=== PATIENT | male | born 1965 | race Caucasian/White ===

== ENCOUNTER 2024-04-04 19:44 | Emergency (ER) | payer OTHER ==
--- NOTE | 2024-04-04 21:31 | XR ---
EXAMINATION TYPE: XR wrist complete LT DATE OF EXAM: 04/04/2024 9:08 PM CLINICAL INDICATION:Male, 59 years old with history of pain; [facility] COMPARISON: None TECHNIQUE: XR wrist complete LT; examined in the Frontal, navicular, lateral, and oblique. FINDINGS: No acute osseous pathology, joint dislocation, or joint effusion. No evidence of any soft tissue swelling is seen. Multifocal degeneration changes throughout the joints of the wrist. Severe a therosclerosis of the procedure. Skin wound over the anterior aspect of the left breast compatible wi th history. IMPRESSION: 1. No acute osseous pathology. 2. Soft tissue injury to the volar wrist. No radiopaque foreign bodies.
[2024-04-04 22:39] LABS: ALT 11 U/L (4-49); AST 27 U/L (17-59); African American GFR (CKD) 71 (>60 ml/min/1.73 sqM); Albumin 3.7 g/dL (3.5-5.0); Anion Gap 9 mmol/L; Blood Urea Nitrogen 22 mg/dL (9-20); C Reactive Protein <0.5 mg/dL (<1.0); Calcium 8.8 mg/dL (8.4-10.2); Carbon Dioxide 19 mmol/L (22-30); Chloride 103 mmol/L (98-107); Glucose 76 mg/dL (74-99); Non-African American GFR(CKD) 61 (>60 ml/min/1.73 sqM); Potassium 5.3 mmol/L (3.5-5.1); Sodium 131 mmol/L (137-145); Total Bilirubin 0.6 mg/dL (0.2-1.3)
[2024-04-04 22:40] LABS: Alkaline Phosphatase 69 U/L (38-126)
[2024-04-04 22:42] LABS: Basophils # (A) 0.1 k/uL (0-0.2); Basophils % (A) 1 %; Eosinophils # (A) 0.6 k/uL (0-0.7); Eosinophils % (A) 5 %; HCT 37.8 % (39.0-53.0); HGB 12.1 gm/dL (13.0-17.5); Lymphocytes # (A) 3.2 k/uL (1.0-4.8); Lymphocytes % (A) 26 %; MCH 28.5 pg (25.0-35.0); MCHC 31.9 g/dL (31.0-37.0); MCV 89.4 fL (80.0-100.0); Mean Platelet Volume 7.6; Monocytes # (A) 0.7 k/uL (0-1.0); Monocytes % (A) 6 %; Neutrophils # (A) 7.2 k/uL (1.3-7.7); Neutrophils % (A) 60 %; Platelet Count 369 k/uL (150-450); RBC 4.23 m/uL (4.30-5.90); RDW 15.8 % (11.5-15.5); WBC 12.1 k/uL (3.8-10.6)
--- NOTE | 2024-04-04 22:50 | ED ---
General Adult HPI - General Chief complaint: Wound/Laceration Stated complaint: Left Hand Laceration Time Seen by Provider: 04/04/24 20:41 Source: patient, EMS, RN notes reviewed Mode of arrival: EMS Limitations: no limitations - History of Present Illness Initial comments: 59-year-old male presents to the emergency department for evaluation of left wri st wound. He states that he underwent surgery for his left wrist about 3 weeks ago in [place]. He notes that 2 days ago the area of the surgical site began to open up. He was urged by his family to come in. He denies any significant redness or drainage from the area. Denies fever, chills. - Related Data Previous Rx's Medication Instructions Recorded Cephalexin [Keflex] 500 mg PO Q6HR #40 cap 04/04/24 Allergies Allergy/AdvReac Type Severity Reaction Status Date / Time No Known Allergies Allergy Verified 04/04/24 20:25 Review of Systems ROS Statement: Those systems with pertinent positive or pertinent negative responses have been documented in the HPI. ROS Other: All systems not noted in ROS Statement are negative. 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 Absent: scleral icterus, conjunctival injection, periorbital swelling Respiratory exam: Present: normal lung sounds bilaterally. Absent: respiratory distress, wheezes, rales, rhonchi, stridor Cardiovascular Exam: Present: regular rate, normal rhythm, normal heart sounds. Absent: systolic murmur, diastolic murmur, rubs, gallop, clicks Extremities exam: Present: full ROM, normal capillary refill, other (Pain with flexion and extension of the fingers of the left hand, open wound measuring about 3 cm x 1 cm on the volar aspect of the left wrist with tendon sheath exposure). Absent: tenderness, pedal edema, joint swelling, calf tenderness Neurological exam: Present: alert, oriented X3 Psychiatric exam: Present: normal affect, normal mood Skin exam: Present: warm, dry, normal color. Absent: intact, rash Course Vital Signs 04/04/24 04/04/24 20:11 23:25 Temperature 97.8 F 97.9 F Pulse Rate 68 73 Respiratory 18 Rate Blood Pressure 126/76 146/95 O2 Sat by Pulse 99 100 Oximetry Medical Decision Making - Medical Decision Making Was pt. sent in by a medical professional or institution (, FA[facility]INO, ELECTRICAL APPLIANCE PREPARER, urgent care, hospital, or senior living...) When possible be specific @ -No Did you speak to anyone other than the patient for history (EMS, parent, family, police, friend...)? What history was obtained from this source @ -No Did you review nursing and triage notes (agree or disagree)? Why? @ -I reviewed and agree with nursing and triage notes Were old charts reviewed (outside hosp., previous admission, EMS record, old EKG, old radiological studies, urgent care reports/EKG's, senior living records)? Report findings @ -No old charts were reviewed Differential Diagnosis (chest pain, altered mental status, abdominal pain women, abdominal pain men, vaginal bleeding, weakness, fever, dyspnea, syncope, headache, dizziness, GI bleed, back pain, seizure, CVA, palpatations, mental health, musculoskeletal)? @ -Differential Musculoskeletal Muscular strain, contusion, ligament sprain, fracture, arthritis, septic arthritis, bursitis, cellulitis, muscle spasm, nerve compression, DVT, arterial occlusion, herpes zoster, electrolyte abnormality, tumor.... This is not meant to be in all inclusive list EKG interpreted by me (3pts min.). @ -None X-rays interpreted by me (1pt min.). @ -None done CT interpreted by me (1pt min.). @ -None done U/S interpreted by me (1pt. min.). @ -None done What testing was considered but not performed or refused? (CT, X-rays, U/S, labs)? Why? @ -None What meds were considered but not given or refused? Why? @ -None Did you discuss the management of the patient with other professionals (professionals i.e. , FAUSTINO, ELECTRICAL APPLIANCE PREPARER, lab, RT, psych nurse, social work job titles, criminal defense lawyer, teacher, learning and development officer, manager rn case)? Give summary @ -Discussed with Dr. Mcdowell orthopedics, discussed based on appearance can be followed outpatient vs transferred for hand specialist if acute treatment is necessary Was smoking cessation discussed for >3mins.? @ -No Was critical care preformed (if so, how long)? @ -No Were there social determinants of health that impacted care today? How? (Homelessness, low income, unemployed, alcoholism, drug addiction, transportation, low edu. Level, literacy, decrease access to med. care, intermediate, rehab)? @ -No Was there de-escalation of care discussed even if they declined (Discuss DNR or withdrawal of care, Hospice)? DNR status @ -No What co-morbidities impacted this encounter? (DM, HTN, Smoking, COPD, CAD, Cancer, CVA, ARF, Chemo, Hep., AIDS, mental health diagnosis, sleep apnea, morbid obesity)? @ -None Was patient admitted / discharged? Hospital course, mention meds given and route, prescriptions, significant lab abnormalities, going to OR and other pertinent info. @ -Discharged. Patient presented to the emergency department for evaluation of left wrist wound. Patient appears to have wound dehiscence at area of recent surgery. There is no redness or drainage from the area. Case was discussed with orthopedics. Recommend treatment based on assessment. Labs obtained shows mild leukocytosis 12.1, CRP less than 0.5. Patient was also assessed by my attending, Dr. Dash. A wet-to-dry dressing was placed. Patient will be started on antibiotics p.o. and advised to follow-up with orthopedics hand specialist on Saturday. He is understanding and agreeable with this plan. Patient stable at time of discharge. Undiagnosed new problem with uncertain prognosis? @ -No Drug Therapy requiring intensive monitoring for toxicity (Heparin, Nitro, Insulin, Cardizem)? @ -No Were any procedures done? @ -No Diagnosis/symptom? @ -Wound dehiscence Acute, or Chronic, or Acute on Chronic? @ -acute Uncomplicated (without systemic symptoms) or Complicated (systemic symptoms)? @ -uncomplicated Side effects of treatment? @ -No Exacerbation, Progression, or Severe Exacerbation? @ -No Poses a threat to life or bodily function? How? (Chest pain, [place], [place], pneumonia, PE, COPD, DKA, ARF, appy, cholecystitis, CVA, Diverticulitis, Homicidal, Suicidal, threat to staff... and all critical care pts) @ -No - Lab Data Result diagrams: 04/04/24 22:00 04/04/24 22:00 Lab Results 04/04/24 04/04/24 04/04/24 Range/Units 22:00 22:00 22:00 WBC 12.1 H (3.8-10.6) k/uL RBC 4.23 L (4.30-5.90) m/uL Hgb 12.1 L (13.0-17.5) gm/dL Hct 37.8 L (39.0-53.0) % MCV 89.4 (80.0-100.0) fL MCH 28.5 (25.0-35.0) pg MCHC 31.9 (31.0-37.0) g/dL RDW 15.8 H (11.5-15.5) % Plt Count 369 (150-450) k/uL MPV 7.6 Neutrophils % 60 % Lymphocytes % 26 % Monocytes % 6 % Eosinophils % 5 % Basophils % 1 % Neutrophils # 7.2 (1.3-7.7) k/uL Lymphocytes # 3.2 (1.0-4.8) k/uL Monocytes # 0.7 (0-1.0) k/uL Eosinophils # 0.6 (0-0.7) k/uL Basophils # 0.1 (0-0.2) k/uL ESR 74 H (0-20) mm/Hr PT 11.1 (10.0-12.5) sec INR 1.0 (<1.2) APTT 23.3 (22.0-30.0) sec Sodium 131 L (137-145) mmol/L Potassium 5.3 H (3.5-5.1) mmol/L Chloride 103 (98-107) mmol/L Carbon Dioxide 19 L (22-30) mmol/L Anion Gap 9 mmol/L BUN 22 H (9-20) mg/dL Creatinine 1.26 H (0.66-1.25) mg/dL Est GFR (CKD-EPI)AfAm 71 (>60 ml/min/1.73 sqM) Est GFR (CKD-EPI)NonAf 61 (>60 ml/min/1.73 sqM) Glucose 76 (74-99) mg/dL Calcium 8.8 (8.4-10.2) mg/dL Total Bilirubin 0.6 (0.2-1.3) mg/dL AST 27 (17-59) U/L ALT 11 (4-49) U/L Alkaline Phosphatase 69 (38-126) U/L C-Reactive Protein <0.5 (<1.0) mg/dL Total Protein 7.0 (6.3-8.2) g/dL Albumin 3.7 (3.5-5.0) g/dL Disposition Clinical Impression: Wound, open, wrist Disposition: HOME SELF-CARE Condition: Stable Additional Instructions: Please follow up with the hand specialist on Saturday. 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 Return to the emergency department for new or worsening symptoms. Prescriptions: Cephalexin [Keflex] 500 mg PO Q6HR #40 cap Is patient prescribed a controlled substance at d/c from ED?: No Referrals: None,Stated [Primary Care Provider] - 1-2 days Renate Colmenares DO [Doctor of Osteopathic Medicine] - 1-2 days Laci Urrutia DO [Doctor of Osteopathic Medicine] - 1-2 days
[2024-04-04 23:13] LABS: Partial Thromboplastin Time 23.3 sec (22.0-30.0); Prothrombin Time 11.1 sec (10.0-12.5)
[2024-04-05 04:06] VITALS: BP 146/95; PULSE 73; RESP 18; TEMP 97.9
[2024-04-05 11:16] LABS: Erythrocyte Sedimentation Rate 74 mm/Hr (0-20)
== END 2024-04-04 23:35 | disposition home or self-care (01) ==
LOC: EC 19:44
DX: S61.412A Laceration without foreign body of left hand, initial encounter (principal); F17.200 Nicotine dependence, unspecified, uncomplicated; X58.XXXA Exposure to other specified factors, initial encounter
CPT/HCPCS: 36415; 80053; 85025; 85610; 85652; 85730; 86140; 99284

== ENCOUNTER 2024-09-29 11:36 | Inpatient (IN) | payer OTHER ==
[2024-09-29] MEDS: methylPREDNISolone SOD SUCCI 125 MG/2 ML VIAL IV STA (12:23)
[2024-09-29] MEDS: cefTRIAXone IN SWFI 1,000 MG/10 ML SYRINGE IVP STA (12:23)
--- NOTE | 2024-09-29 12:24 | ED ---
General Adult HPI - General Chief complaint: Shortness of Breath Stated complaint: SOB Time Seen by Provider: 09/29/24 12:10 Source: patient, RN notes reviewed, old records reviewed Mode of arrival: wheelchair Limitations: no limitations - History of Present Illness Initial comments: This is a 59-year-old male who presents to the emergency department complaining of difficulty breathing for 6 days. Patient states today he also had some left upper chest pain. Patient states she has had a slight cough but nothing worse than normal. Patient states he is a smoker does have diabetes high cholesterol and high blood pressure. Patient denies any heart disease in the past. Patient states he has noticed a little more swelling to the feet. Patient denies any back pain. Patient denies any radiation of the pain in the chest. Patient denies any abdominal pain patient has nausea vomiting diarrhea. - Related Data Home Medications Medication Instructions Recorded Confirmed No Known Home Medications 09/29/24 09/29/24 Allergies Allergy/AdvReac Type Severity Reaction Status Date / Time No Known Allergies Allergy Verified 09/29/24 12:56 Review of Systems ROS Statement: Those systems with pertinent positive or pertinent negative responses have been documented in the HPI. ROS Other: All systems not noted in ROS Statement are negative. 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 Patient is nontoxic and well- hydrated and is in mild distress. ENT: Neck is soft and supple. No significant lymphadenopathy is noted. Oropharynx is clear. Moist mucous membranes. Neck has full range of motion without eliciting any pain. EYES: The sclera were anicteric and conjunctiva were pink and moist. Extraocular movements were intact and pupils were equal round and reactive to light. E yelids were unremarkable. PULMONARY: Significant decreased breath sounds with expiratory wheezing CARDIOVASCULAR: There is a regular rate and rhythm without any murmurs gallops or rubs. ABDOMEN: Soft and nontender with normal bowel sounds. SKIN: Skin is clear with no lesions or rashes and otherwise unremarkable. NEUROLOGIC: Patient is alert and oriented x3. Cranial nerves II through XII are grossly intact. Motor and sensory are also intact. Normal speech, volume and content. Symmetrical smile. MUSCULOSKELETAL: Normal extremities with adequate strength and full range of motion. 1+ edema bilaterally LYMPHATICS: No significant lymphadenopathy is noted PSYCHIATRIC: Normal psychiatric evaluation. Limitations: no limitations Course Vital Signs 09/29/24 09/29/24 09/29/24 12:06 12:15 12:37 Temperature 97.3 F L Pulse Rate 62 97 Respiratory 26 H 26 H Rate Blood Pressure 176/106 O2 Sat by Pulse 88 L Oximetry 09/29/24 09/29/24 09/29/24 12:50 14:04 14:26 Temperature Pulse Rate 96 98 96 Respiratory 26 H 26 H Rate Blood Pressure 170/101 154/86 O2 Sat by Pulse 94 L 93 L Oximetry Medical Decision Making - Medical Decision Making EKG is interpreted by myself but EKG shows sinus tachycardia with occasional PVC at 100 bpm W[place] 125 QRS is 102 QT interval 353 QTc is 410. Patient's EKG shows no ST segment elevation or depression. Was pt. sent in by a medical professional or institution (, PA, HELP DESK MANAGER, urgent care, hospital, or skilled nursing...) When possible be specific @ -No Did you speak to anyone other than the patient for history (EMS, parent, family, police, friend...)? What history was obtained from this source @ -No Did you review nursing and triage notes (agree or disagree)? Why? @ -I reviewed and agree with nursing and triage notes Were old charts reviewed (outside hosp., previous admission, EMS record, old EKG, old radiological studies, urgent care reports/EKG's, skilled nursing records)? Report findings @ -No old charts were reviewed Differential Diagnosis? @ -Differential Dyspnea: Coronary syndrome, arrhythmia, tamponade, asthma, COPD, pulmonary embolism, pneumonia, pneumothorax, pulmonary effusion, anaphylaxis, diabetic ketoacidosis, flailed chest, pulmonary contusion, diaphragmatic rupture, anemia, neuromuscular, this is not meant to be an all-inclusive list. EKG interpreted by me (3pts min.). @ -As above X-rays interpreted by me (1pt min.). @ -Chest x-ray shows acute pulmonary edema CT interpreted by me (1pt min.). @ -None done U/S interpreted by me (1pt. min.). @ -None done What testing was considered but not performed or refused? (CT, X-rays, U/S, labs)? Why? @ -None What meds were considered but not given or refused? Why? @ -None Did you discuss the management of the patient with other professionals (professionals i.e. , PA, HELP DESK MANAGER, lab, RT, psych nurse, director social, tree warden, teacher, staff electronic warfare officer, rn field case manager)? Give summary @ -I spoke with Dr. Dickens he agreed to admit the patient I admitted the patient wrote admitting orders Was smoking cessation discussed for >3mins.? @ -No Was critical care preformed (if so, how long)? @ -35 minutes Were there social determinants of health that impacted care today? How? (Homelessness, low income, unemployed, alcoholism, drug addiction, transportation, low edu. Level, literacy, decrease access to med. care, care home, rehab)? @ -No Was there de-escalation of care discussed even if they declined (Discuss DNR or withdrawal of care, Hospice)? DNR status @ -No What co-morbidities impacted this encounter? (DM, HTN, Smoking, COPD, CAD, Cancer, CVA, ARF, Chemo, Hep., AIDS, mental health diagnosis, sleep apnea, morbid obesity)? @ -None Was patient admitted / discharged? Hospital course, mention meds given and route, prescriptions, significant lab abnormalities, going to OR and other pertinent info. @ -Patient was given Lasix on arrival and also 2 breathing treatments because of his COPD history and the wheezing heard. Patient was then given nitroglycerin sublingual and Nitropaste to help bring down his pressure and decrease preload for his acute pulmonary edema. Patient was feeling considerably better. Patient will be admitted to Dr. Willis. Patient also received antibiotics for the COPD history. Undiagnosed new problem with uncertain prognosis? @ -No Drug Therapy requiring intensive monitoring for toxicity (Heparin, Nitro, Insulin, Cardizem)? @ -No Were any procedures done? @ -No Diagnosis/symptom? @ -Acute pulmonary edema Acute, or Chronic, or Acute on Chronic? @ -Acute Uncomplicated (without systemic symptoms) or Complicated (systemic symptoms)? @ -Complicated Side effects of treatment? @ -No Exacerbation, Progression, or Severe Exacerbation? @ -No Poses a threat to life or bodily function? How? (Chest pain, [place], [place], pneumonia, PE, COPD, DKA, ARF, appy, cholecystitis, CVA, Diverticulitis, Homicidal, Suicidal, threat to staff... and all critical care pts) @ -Yes this can lead to hypoxia and endorgan dysfunction Diagnosis/symptom? @ -Hypertensive urgency Acute, or Chronic, or Acute on Chronic? @ -Acute Uncomplicated (without systemic symptoms) or Complicated (systemic symptoms)? @ -Complicated Side effects of treatment? @ -None Exacerbation, Progression, or Severe Exacerbation] @ -No Poses a threat to life or bodily function? @ -Yes this can lead to poor perfusion and endorgan dysfunction - Lab Data Result diagrams: 09/29/24 13:05 09/29/24 14:29 Lab Results 09/29/24 09/29/24 09/29/24 Range/Units 13:05 13:05 13:05 WBC 11.0 H (3.8-10.6) k/uL RBC 4.53 (4.30-5.90) m/uL Hgb 13.7 (13.0-17.5) gm/dL Hct 41.7 (39.0-53.0) % MCV 92.0 (80.0-100.0) fL MCH 30.1 (25.0-35.0) pg MCHC 32.8 (31.0-37.0) g/dL RDW 14.5 (11.5-15.5) % Plt Count 393 (150-450) k/uL MPV 7.6 Neutrophils % 87 % Lymphocytes % 7 % Monocytes % 4 % Eosinophils % 1 % Basophils % 1 % Neutrophils # 9.5 H (1.3-7.7) k/uL Lymphocytes # 0.8 L (1.0-4.8) k/uL Monocytes # 0.4 (0-1.0) k/uL Eosinophils # 0.2 (0-0.7) k/uL Basophils # 0.1 (0-0.2) k/uL Hypochromasia Slight PT 12.0 (10.0-12.5) sec INR 1.1 (<1.2) APTT 24.1 (22.0-30.0) sec Sodium Cancelled Potassium Cancelled Chloride Cancelled Carbon Dioxide Cancelled Anion Gap Cancelled BUN Cancelled Creatinine Cancelled Est GFR (CKD-EPI) Cancelled Est GFR (CKD-EPI)AfAm Cancelled Est GFR (CKD-EPI)NonAf Cancelled Glucose Cancelled Plasma Lactic Acid Lee (0.7-2.0) mmol/L Calcium Cancelled Magnesium Cancelled Total Bilirubin Cancelled AST Cancelled ALT Cancelled Alkaline Phosphatase Cancelled Troponin I (0.000-0.034) ng/mL NT-Pro-B Natriuret Pep 93469 pg/mL Total Protein Cancelled Albumin Cancelled 09/29/24 09/29/24 09/29/24 Range/Units 13:05 14:29 14:29 WBC (3.8-10.6) k/uL RBC (4.30-5.90) m/uL Hgb (13.0-17.5) gm/dL Hct (39.0-53.0) % MCV (80.0-100.0) fL MCH (25.0-35.0) pg MCHC (31.0-37.0) g/dL RDW (11.5-15.5) % Plt Count (150-450) k/uL MPV Neutrophils % % Lymphocytes % % Monocytes % % Eosinophils % % Basophils % % Neutrophils # (1.3-7.7) k/uL Lymphocytes # (1.0-4.8) k/uL Monocytes # (0-1.0) k/uL Eosinophils # (0-0.7) k/uL Basophils # (0-0.2) k/uL Hypochromasia PT (10.0-12.5) sec INR (<1.2) APTT (22.0-30.0) sec Sodium 133 L Potassium 5.5 H Chloride 100 Carbon Dioxide 23 Anion Gap 10 BUN 38 H Creatinine 1.84 H Est GFR (CKD-EPI) Est GFR (CKD-EPI)AfAm 45 Est GFR (CKD-EPI)NonAf 39 Glucose 135 H Plasma Lactic Acid Lee 1.7 (0.7-2.0) mmol/L Calcium 8.5 Magnesium 2.0 Total Bilirubin 0.4 AST 26 ALT 17 Alkaline Phosphatase 146 H Troponin I 0.040 H* (0.000-0.034) ng/mL NT-Pro-B Natriuret Pep pg/mL Total Protein 7.6 Albumin 3.8 Disposition Clinical Impression: Acute pulmonary edema, Hypertensive urgency Disposition: ADMITTED IP TO THIS HOSP Referrals: None,Stated [Primary Care Provider] - 1-2 days Time of Disposition: 15:27
[2024-09-29] MEDS: IPRATROPIUM 0.5 MG/2.5 ML NEBU INHALATION STA (12:33)
[2024-09-29] MEDS: ALBUTEROL NEBULIZED 2.5 MG/3 ML INHALATION STA (12:33)
[2024-09-29] MEDS: FUROSEMIDE 10 MG/ML 2 ML VIAL IV ONE (13:14)
[2024-09-29 13:22] LABS: Basophils # (A) 0.1 k/uL (0-0.2); Basophils % (A) 1 %; Eosinophils # (A) 0.2 k/uL (0-0.7); Eosinophils % (A) 1 %; HCT 41.7 % (39.0-53.0); HGB 13.7 gm/dL (13.0-17.5); Hypochromasia Slight; Lymphocytes # (A) 0.8 k/uL (1.0-4.8); Lymphocytes % (A) 7 %; MCH 30.1 pg (25.0-35.0); MCHC 32.8 g/dL (31.0-37.0); Mean Platelet Volume 7.6; Monocytes # (A) 0.4 k/uL (0-1.0); Monocytes % (A) 4 %; Neutrophils # (A) 9.5 k/uL (1.3-7.7); Neutrophils % (A) 87 %; Platelet Count 393 k/uL (150-450); RBC 4.53 m/uL (4.30-5.90); RDW 14.5 % (11.5-15.5)
[2024-09-29 13:31] LABS: INR 1.1 (<1.2); Partial Thromboplastin Time 24.1 sec (22.0-30.0)
--- NOTE | 2024-09-29 13:44 | XR ---
EXAMINATION TYPE: XR chest 2V DATE OF EXAM: 09/29/2024 1:39 PM COMPARISON: Chest radiographs from TECHNIQUE: XR chest 2V Frontal and lateral views of the chest. CLINICAL INDICATION:Male, 59 years old with history of difficulty breathing; FINDINGS: Lungs/Pleura: No evidence of pneumothorax. Patchy bibasilar airspace opacities. Blunting of the costo phrenic angles is present. Pulmonary vascularity: Pulmonary vascular congestion. Heart/mediastinum: Cardiomediastinal silhouette is enlarged. Musculoskeletal: No acute osseous pathology. IMPRESSION: Cardiomegaly, pulmonary vascular congestion and bilateral small pleural effusions. Correlate with BNP for congestive heart failure. Additionally there are bibasilar patchy airspace opacities may represe nt atelectasis with superimposed infectious process not excluded. [facility], , 09/29/2024 1:42 PM
[2024-09-29] MEDS: NITROGLYCERIN SL TABS 0.4 MG TAB SUBLINGUAL STA (14:04)
[2024-09-29 14:51] LABS: ALT 17 U/L (4-49); AST 26 U/L (17-59); African American GFR (CKD) 45 (>60 ml/min/1.73 sqM); Albumin 3.8 g/dL (3.5-5.0); Alkaline Phosphatase 146 U/L (38-126); Anion Gap 10 mmol/L; Blood Urea Nitrogen 38 mg/dL (9-20); Calcium 8.5 mg/dL (8.4-10.2); Carbon Dioxide 23 mmol/L (22-30); Chloride 100 mmol/L (98-107); Glucose 135 mg/dL (74-99); Non-African American GFR(CKD) 39 (>60 ml/min/1.73 sqM); Potassium 5.5 mmol/L (3.5-5.1); Sodium 133 mmol/L (137-145); Total Bilirubin 0.4 mg/dL (0.2-1.3); Total Protein 7.6 g/dL (6.3-8.2)
[2024-09-29] MEDS: FUROSEMIDE 40 MG TAB PO SCH (15:37)
[2024-09-29] MEDS: ASPIRIN 325 MG TAB PO STA (15:37)
[2024-09-29 17:00] LABS: Glucose,Whole Blood 148 mg/dL (70-110)
[2024-09-29] MEDS: NITROGLYCERIN OINT 1 INCH/GM PACKET TOPICAL SCH (19:14)
--- NOTE | 2024-09-29 20:57 | P.HPIM ---
History of Present Illness This is a pleasant 59 years old male with no significant past medical history. Who does not follow-up with PCP. Presents because of feeling short of breath for the last 6 days. Patient also reports having some chest pain when he came into the hospital, as per patient is gone now and rated as 0/10. He has been having some cough and green phlegm for the last 5 days He smokes 1 pack/day and he were counseled to quit and he agrees and he wants nicotine patch but no alcohol or illicit drugs He has mild headache. He has some wobbly walking because of his knee replacement. But no new weakness No specific GI/ symptom On admission he stated Clinic with a heart rate of breathing is 20-22. He was saturating 94% on 4 L oxygen via nasal cannula. Labs reviewed. He WBC is mildly up at 11,000. Rest of CBC is unremarkable Creatinine 1.8. Liver enzymes are unremarkable. INR 1.1 Troponin is elevated at 0.04 proBNP is elevated 11 300 Chest x-ray showing cardiomegaly with pulmonary vascular congestion and bilateral pleural effusion. With some atelectasis, pneumonia felt less likely Pro- Calcitonin is pending EKG showing sinus tachycardia at 100% with no significant ST-T changes Patient received aspirin in the emergency room at 325 mg and started on Lasix. Review of Systems Review of systems CONSTITUTIONAL: No fever, no malaise, no fatigue. HEENT: No recent visual problems or hearing problems. Denied any sore throat. CARDIOVASCULAR: No orthopnea, PND, no palpitations, no syncope. PULMONARY: No chest wall tenderness, no hemoptysis. GASTROINTESTINAL: No diarrhea, no nausea, no vomiting, no abdominal pain. Normoactive bowel sounds. NEUROLOGICAL: No headaches, no weakness, no numbness. HEMATOLOGICAL: Denies any bleeding or petechiae. GENITOURINARY: Denies any burning micturition, frequency, or urgency. MUSCULOSKELETAL/RHEUMATOLOGICAL: Denies any joint pain, swelling, or any muscle pain. ENDOCRINE: Denies any polyuria or polydipsia. 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 side of neck about 40 years ago Smoking Status: Current every day smoker Past Alcohol Use History: Occasional Past Drug Use History: None Reported Medications and Allergies Home Medications Medication Instructions Recorded Confirmed Type No Known Home Medications 09/29/24 09/29/24 History Allergies Allergy/AdvReac Type Severity Reaction Status Date / Time No Known Allergies Allergy Verified 09/29/24 12:56 Physical Exam Vitals: Vital Signs Temp Pulse Resp BP Pulse Ox 09/29/24 19:10 97.9 F 81 20 144/95 94 L 09/29/24 15:58 100 22 176/100 91 L 09/29/24 14:26 96 26 H 154/86 93 L 09/29/24 14:04 98 26 H 170/101 94 L 09/29/24 12:50 96 09/29/24 12:37 97 09/29/24 12:15 26 H 09/29/24 12:06 97.3 F L 62 26 H 176/106 88 L Intake and Output 09/29/24 09/29/24 09/29/24 06:59 14:59 22:59 Other: Weight 70.307 kg GENERAL: The patient is alert and oriented x3, not in any acute distress. Well developed, well nourished. HEENT: Pupils are round and equally reacting to light. EOMI. No scleral icterus. No conjunctival pallor. Normocephalic, atraumatic. No pharyngeal erythema. No thyromegaly. CARDIOVASCULAR: S1 and S2 present. No murmurs, rubs, or gallops. -PULMONARY: Chest is clear to auscultation, no wheezing , no crackles. Decreased air entry in both sides ABDOMEN: Soft, nontender, nondistended, normoactive bowel sounds. No palpable organomegaly. MUSCULOSKELETAL: No joint swelling or deformity. -EXTREMITIES: No cyanosis, clubbing, 1+ bilateral pitting leg edema, left more than right. NEUROLOGICAL: Gross neurological examination did not reveal any focal deficits. SKIN: No rashes. no petechiae. Results CBC & Chem 7: 09/29/24 13:05 09/29/24 14:29 Labs: Abnormal Lab Results - Last 24 Hours (Table) 09/29/24 09/29/24 09/29/24 Range/Units 13:05 14:29 14:29 WBC 11.0 H (3.8-10.6) k/uL Neutrophils # 9.5 H (1.3-7.7) k/uL Lymphocytes # 0.8 L (1.0-4.8) k/uL Sodium 133 L (137-145) mmol/L Potassium 5.5 H (3.5-5.1) mmol/L BUN 38 H (9-20) mg/dL Creatinine 1.84 H (0.66-1.25) mg/dL Glucose 135 H (74-99) mg/dL POC Glucose (mg/dL) (70-110) mg/dL Alkaline Phosphatase 146 H (38-126) U/L Troponin I 0.040 H* (0.000-0.034) ng/mL 09/29/24 Range/Units 16:58 WBC (3.8-10.6) k/uL Neutrophils # (1.3-7.7) k/uL Lymphocytes # (1.0-4.8) k/uL Sodium (137-145) mmol/L Potassium (3.5-5.1) mmol/L BUN (9-20) mg/dL Creatinine (0.66-1.25) mg/dL Glucose (74-99) mg/dL POC Glucose (mg/dL) 148 H (70-110) mg/dL Alkaline Phosphatase (38-126) U/L Troponin I (0.000-0.034) ng/mL Assessment and Plan Assessment: Acute hypoxic respiratory failure Acute congestive heart failure, new onset. Unknown ejection fraction Acute kidney injury could be cardiorenal syndrome. Rule out obstructive uropathy and other etiologies. Nicotine dependence. Patient counseled and he agrees to the nicotine patch Plan: Continue with Lasix. Monitor creatinine and input and output and electrolytes Start small dose of metoprolol Continue with aspirin Will do serial troponin Cardiology team consult Check urine analysis. Consider nephrology consult especially if no improvement Labs and medication were reviewed.. Continue same treatment. Continue with symptomatic treatment. Resume home medication. Monitor labs and vitals. DVT and GI prophylaxis. Further recommendations as per clinical course of the patient DVT prophylaxis: Subcutaneous Lovenox GI Prophylaxis: Pepcid PT/OT: Pending Prognosis is guarded
[2024-09-29] MEDS: METOPROLOL TARTRATE 12.5 MG TAB PO SCH (21:42)
[2024-09-29] MEDS: NICOTINE 21MG/24HR PATCH TRANSDERM SCH (21:42)
[2024-09-29] MEDS: IPRATROPIUM-ALBUTEROL 3 ML NEB INHALATION STA (22:10)
[2024-09-30] MEDS: MELATONIN 3 MG TABLET PO SCH (00:59)
[2024-09-30] MEDS: ACETAMINOPHEN TAB 325 MG TAB PO PRN (00:59)
[2024-09-30 03:55] LABS: Amorphous Sediment,Urine Rare /hpf; Appearance,Urine Clear (Clear); Bilirubin,Urine Negative (Negative); Blood,Urine Small (Negative); Color,Urine Colorless; Glucose,Urine (UA) Trace (Negative); Hyaline Casts,Urine 14 /lpf (0-2); Ketones,Urine Negative (Negative); Leukocyte Esterase,Urine Negative (Negative); Mucus,Urine Few /hpf; Nitrite,Urine Negative (Negative); PH, Urine 5.5 (5.0-8.0); Protein,Urine 3+ (Negative); RBC,Urine 13 /hpf (0-5); Specific Gravity,Urine 1.014 (1.001-1.035); Squamous Epithelial Cell,Urine <1 /hpf (0-4); Urobilinogen,Urine <2.0 mg/dL (<2.0); WBC,Urine 1 /hpf (0-5)
--- NOTE | 2024-09-30 07:15 | P.PN ---
Subjective This is a pleasant 59 years old male with no significant past medical history. Who does not follow-up with PCP. Presents because of feeling short of breath for the last 6 days. Patient also reports having some chest pain when he came into the hospital, as per patient is gone now and rated as 0/10. He has been having some cough and green phlegm for the last 5 days He smokes 1 pack/day and he were counseled to quit and he agrees and he wants nicotine patch but no alcohol or illicit drugs He has mild headache. He has some wobbly walking because of his knee replacement. But no new weakness No specific GI/ symptom On admission he stated Clinic with a heart rate of breathing is 20-22. He was saturating 94% on 4 L oxygen via nasal cannula. Labs reviewed. He WBC is mildly up at 11,000. Rest of CBC is unremarkable Creatinine 1.8. Liver enzymes are unremarkable. INR 1.1 Troponin is elevated at 0.04 proBNP is elevated 11 300 Chest x-ray showing cardiomegaly with pulmonary vascular congestion and bilateral pleural effusion. With some atelectasis, pneumonia felt less likely Pro- Calcitonin is pending EKG showing sinus tachycardia at 100% with no significant ST-T changes Patient received aspirin in the emergency room at 325 mg and started on Lasix. 09/30 Patient is still tachypneic and dyspneic. Also patient reports improvement in his breathing He denies chest pain. No significant coughing. Still with bilateral pitting leg edema more on the left side. He has evidence of urinary retention with bladder scan 421. Dawson catheter was inserted. We will add Flomax. He made good urine output overnight. Repeat potassium was 5.9. Creatinine 1.8. Monitor labs later on today. Echocardiogram is pending Objective - Vital Signs Vital signs: Vital Signs Temp 97.9 F 09/29/24 19:10 Pulse 87 09/30/24 06:22 Resp 18 09/30/24 06:22 BP 131/85 09/30/24 06:22 Pulse Ox 95 09/30/24 06:22 FiO2 Intake & Output 09/29/24 09/30/24 09/30/24 18:59 06:59 18:59 Output Total 450 Balance -450 Weight 70.307 kg Output: Urine 450 Uretheral (Dawson) 450 - Exam GENERAL: The patient is alert and oriented x3, not in any acute distress. Well developed, well nourished. HEENT: Pupils are round and equally reacting to light. EOMI. No scleral icterus. No conjunctival pallor. Normocephalic, atraumatic. No pharyngeal erythema. No thyromegaly. CARDIOVASCULAR: S1 and S2 present. No murmurs, rubs, or gallops. -PULMONARY: Chest is clear to auscultation, no wheezing , bilateral basal crackles. With no prolongation of expiration ABDOMEN: Soft, nontender, nondistended, normoactive bowel sounds. No palpable organomegaly. MUSCULOSKELETAL: No joint swelling or deformity. -EXTREMITIES: No cyanosis, clubbing, . pt has bilateral pitting leg edema. More on the left side NEUROLOGICAL: Gross neurological examination did not reveal any focal deficits. SKIN: No rashes. no petechiae. - Labs CBC & Chem 7: 09/29/24 13:05 09/29/24 21:14 Labs: Abnormal Lab Results - Last 24 Hours (Table) 09/29/24 09/29/24 09/29/24 Range/Units 13:05 14:29 14:29 WBC 11.0 H (3.8-10.6) k/uL Neutrophils # 9.5 H (1.3-7.7) k/uL Lymphocytes # 0.8 L (1.0-4.8) k/uL Sodium 133 L (137-145) mmol/L Potassium 5.5 H (3.5-5.1) mmol/L BUN 38 H (9-20) mg/dL Creatinine 1.84 H (0.66-1.25) mg/dL Glucose 135 H (74-99) mg/dL POC Glucose (mg/dL) (70-110) mg/dL Alkaline Phosphatase 146 H (38-126) U/L Troponin I 0.040 H* (0.000-0.034) ng/mL Urine Protein (Negative) Urine Glucose (UA) (Negative) Urine Blood (Negative) Urine RBC (0-5) /hpf Amorphous Sediment (None) /hpf Hyaline Casts (0-2) /lpf Urine Mucus (None) /hpf 09/29/24 09/29/24 09/29/24 Range/Units 16:58 21:14 21:14 WBC (3.8-10.6) k/uL Neutrophils # (1.3-7.7) k/uL Lymphocytes # (1.0-4.8) k/uL Sodium (137-145) mmol/L Potassium 5.9 H (3.5-5.1) mmol/L BUN (9-20) mg/dL Creatinine (0.66-1.25) mg/dL Glucose (74-99) mg/dL POC Glucose (mg/dL) 148 H (70-110) mg/dL Alkaline Phosphatase (38-126) U/L Troponin I 0.052 H* (0.000-0.034) ng/mL Urine Protein (Negative) Urine Glucose (UA) (Negative) Urine Blood (Negative) Urine RBC (0-5) /hpf Amorphous Sediment (None) /hpf Hyaline Casts (0-2) /lpf Urine Mucus (None) /hpf 09/30/24 Range/Units 03:00 WBC (3.8-10.6) k/uL Neutrophils # (1.3-7.7) k/uL Lymphocytes # (1.0-4.8) k/uL Sodium (137-145) mmol/L Potassium (3.5-5.1) mmol/L BUN (9-20) mg/dL Creatinine (0.66-1.25) mg/dL Glucose (74-99) mg/dL POC Glucose (mg/dL) (70-110) mg/dL Alkaline Phosphatase (38-126) U/L Troponin I (0.000-0.034) ng/mL Urine Protein 3+ H (Negative) Urine Glucose (UA) Trace H (Negative) Urine Blood Small H (Negative) Urine RBC 13 H (0-5) /hpf Amorphous Sediment Rare H (None) /hpf Hyaline Casts 14 H (0-2) /lpf Urine Mucus Few H (None) /hpf Assessment and Plan Assessment: Acute hypoxic respiratory failure Acute congestive heart failure, new onset. Unknown ejection fraction elevated troponin. Rule out obstructive coronary artery disease Acute kidney injury could be cardiorenal syndrome. Rule out obstructive uropathy and other etiologies. Acute urinary retention status post Dawson catheter insertion in emergency room Nicotine dependence. Patient counseled and he agrees to the nicotine patch Plan: Continue with Lasix. Monitor creatinine and input and output and electrolytes Start small dose of metoprolol Continue with aspirin Will do serial troponin Cardiology team consult Caitlin continue with Dawson catheter and added Flomax s. Consider nephrology consult especially if no improvement Labs and medication were reviewed.. Continue same treatment. Continue with symptomatic treatment. Resume home medication. Monitor labs and vitals. DVT and GI prophylaxis. Further recommendations as per clinical course of the patient DVT prophylaxis: Subcutaneous Lovenox GI Prophylaxis: Pepcid PT/OT: Pending Prognosis is guarded
[2024-09-30 07:37] LABS: Basophils % (A) 0 %; Eosinophils # (A) 0.1 k/uL (0-0.7); Eosinophils % (A) 1 %; HCT 36.8 % (39.0-53.0); HGB 11.4 gm/dL (13.0-17.5); Hypochromasia Slight; Lymphocytes # (A) 0.6 k/uL (1.0-4.8); Lymphocytes % (A) 7 %; MCH 28.8 pg (25.0-35.0); MCHC 31.1 g/dL (31.0-37.0); MCV 92.8 fL (80.0-100.0); Mean Platelet Volume 7.8; Monocytes # (A) 0.6 k/uL (0-1.0); Monocytes % (A) 7 %; Neutrophils # (A) 7.2 k/uL (1.3-7.7); Neutrophils % (A) 84 %; Platelet Count 354 k/uL (150-450); RBC 3.97 m/uL (4.30-5.90); RDW 14.6 % (11.5-15.5); WBC 8.6 k/uL (3.8-10.6)
[2024-09-30 08:12] LABS: African American GFR (CKD) 39 (>60 ml/min/1.73 sqM); Anion Gap 9 mmol/L; Blood Urea Nitrogen 50 mg/dL (9-20); Calcium 8.8 mg/dL (8.4-10.2); Carbon Dioxide 27 mmol/L (22-30); Chloride 100 mmol/L (98-107); Glucose 172 mg/dL (74-99); Non-African American GFR(CKD) 34 (>60 ml/min/1.73 sqM); Potassium 5.7 mmol/L (3.5-5.1); Sodium 136 mmol/L (137-145)
[2024-09-30] MEDS: IPRATROPIUM-ALBUTEROL 3 ML NEB INHALATION PRN (08:23)
[2024-09-30] MEDS: TAMSULOSIN 0.4 MG CAP.ER.24H PO SCH (08:58)
[2024-09-30] MEDS: ASPIRIN 81 MG PO SCH (08:58)
[2024-09-30] MEDS: ENOXAPARIN 30 MG/0.3 ML SYRINGE SQ SCH (08:59)
[2024-09-30] MEDS: FAMOTIDINE 20 MG/2 ML VIAL IV SCH (08:59)
[2024-09-30] MEDS ORDERED: ASPIRIN 325 MG TAB PO SCH (09:00)
[2024-09-30] MEDS: FUROSEMIDE 10 MG/ML 4 ML VIAL IV SCH (09:00)
--- NOTE | 2024-09-30 09:33 | P.CRDCN ---
History of Present Illness History of present illness: HISTORY OF PRESENT ILLNESS: This is a 59-year-old male with a past medical history significant for hypertension and nicotine dependence. 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 We have been asked to see the patient in consultation for CHF. Patient examined at the bedside in the emergency room. Patient states he has been feeling short of breath for the past week. He states he has been using a friend's inhaler without much relief. He reports having an episode yesterday of chest pain in the left upper chest region. Denies any further episodes of chest discomfort. He does report dizziness and lightheadedness with ambulation. He is currently on oxygen which she states has helped his shortness of breath. He still continues to report shortness of breath with exertion. Patient states that he moved from [place] and has not established with a primary care physician yet. He states he used to be on blood pressure medications but states he has not been on them since moving to [place]. The patient was found to have acute kidney injury with a creatinine of 2.07. Previous creatinine in March 2024 1.26. Patient was also found to have urinary retention and has indwelling urinary catheter placed. The patient does report he is a current smoker and smokes 1 pack/day. He reports 2 alcoholic drinks a month. He denies any drug use including marijuana. DIAGNOSTICS: - EKG reveals sinus tachycardia with PVCs - Chest xray cardiomegaly, pulmonary vascular congestion and bilateral small pleural effusions. Additionally there are bibasilar patchy airspace opacities may represent atelectasis with superimposed infectious process not excluded - Laboratory data: WBC 8.6. Hemoglobin 11.4. Platelet count 354. Sodium 136. Potassium 5.7. BUN 50. Creatinine 2.07. Magnesium 2.0. Creatinine 0.040. 0.052. Procalcitonin 0.14. - Current home cardiac medications include none -No previous echocardiogram, stress test, or cardiac catheterization available in EMR for review REVIEW OF SYSTEMS: At the time of my exam: CONSTITUTIONAL: Denies fever or chills. HEENT: Denies blurred vision, vision changes, or eye pain. Denies hemoptysis CARDIOVASCULAR: Denies chest pain. Denies orthopnea. Denies PND. Denies palpitations RESPIRATORY: Reports shortness of breath. GASTROINTESTINAL: Denies abdominal pain. Denies nausea or vomiting. HEMATOLOGIC: Denies bleeding disorders. GENITOURINARY: Denies any blood in urine. SKIN: Denies pruitis. Denies rash. PHYSICAL EXAM: VITAL SIGNS: Reviewed. GENERAL: Well-developed in no acute distress. HEENT: Head is normocephalic. Pupils are equal, round. Sclerae anicteric. Mucous membranes of the mouth are moist. Neck supple. No JVD or thyromegaly LUNGS: Respirations even and unlabored. Lungs with bilateral rhonchi HEART: Regular rate and rhythm. S1 and S2 heard. ABDOMEN: Soft. Nondistended. Nontender. EXTREMITIES: Normal range of motion. No clubbing or cyanosis. Peripheral pulses intact. No lower extremity edema NEUROLOGIC: Awake and alert. Oriented x 3. ASSESSMENT: Shortness of breath Acute heart failure, type unknown, echo pending Acute hypoxic respiratory failure requiring supplemental oxygen Acute kidney injury Hyperkalemia Abnormal troponins, type II OK, secondary to oxygen supply/demand mismatch, no evidence of acute coronary syndrome Urinary retention requiring indwelling urinary catheter Hypertension Suspected COPD Nicotine dependence PLAN: Obtain 2D echo to assess cardiac structure and function Obtain d-dimer Begin aspirin 81 mg daily Begin atorvastatin 40 mg at night Discontinue metoprolol. Begin carvedilol 6.25 mg twice a day Continue IV Lasix. Decrease dosing to once daily Daily weights, accurate intake and output, and monitoring of kidney function Recommend nephrology consultation Check hemoglobin A1c and lipid panel Smoking cessation recommended. Patient to be referred to [place] quit line upon discharge Further recommendations pending patient course Nurse practitioner note has been reviewed by physician. Signing provider agrees with the documented findings, assessment, and plan of care documented by PHARMACEUTICAL LABORATORY TECHNICIAN as a scribe. 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 side of neck about 40 years ago Smoking Status: Current every day smoker Past Alcohol Use History: Occasional Past Drug Use History: None Reported Medications and Allergies Home Medications Medication Instructions Recorded Confirmed Type No Known Home Medications 09/29/24 09/29/24 History Allergies Allergy/AdvReac Type Severity Reaction Status Date / Time No Known Allergies Allergy Verified 09/29/24 12:56 Physical Exam Vitals: Vital Signs Temp Pulse Resp BP Pulse Ox 09/30/24 06:22 87 18 131/85 95 09/30/24 02:00 82 16 130/93 97 09/29/24 22:21 96 09/29/24 22:10 92 09/29/24 21:39 98 18 154/101 94 L 09/29/24 19:10 97.9 F 81 20 144/95 94 L 09/29/24 15:58 100 22 176/100 91 L 09/29/24 14:26 96 26 H 154/86 93 L 09/29/24 14:04 98 26 H 170/101 94 L 09/29/24 12:50 96 09/29/24 12:37 97 09/29/24 12:15 26 H 09/29/24 12:06 97.3 F L 62 26 H 176/106 88 L Intake and Output 09/29/24 09/30/24 09/30/24 22:59 06:59 14:59 Output Total 450 Balance -450 Output: Urine 450 Uretheral (Dawson) 450 Results 09/30/24 07:12 09/30/24 07:12 Cardiac Enzymes 09/29/24 09/29/24 09/29/24 Range/Units 13:05 14:29 14:29 AST Cancelled 26 Troponin I 0.040 H* (0.000-0.034) ng/mL 09/29/24 Range/Units 21:14 AST Troponin I 0.052 H* (0.000-0.034) ng/mL Coagulation 09/29/24 Range/Units 13:05 PT 12.0 (10.0-12.5) sec APTT 24.1 (22.0-30.0) sec CBC 09/29/24 09/30/24 Range/Units 13:05 07:12 WBC 11.0 H 8.6 (3.8-10.6) k/uL RBC 4.53 3.97 L (4.30-5.90) m/uL Hgb 13.7 11.4 L (13.0-17.5) gm/dL Hct 41.7 36.8 L (39.0-53.0) % Plt Count 393 354 (150-450) k/uL Comprehensive Metabolic Panel 09/29/24 09/29/24 09/29/24 Range/Units 13:05 14:29 21:14 Sodium Cancelled 133 L Potassium Cancelled 5.5 H 5.9 H Chloride Cancelled 100 Carbon Dioxide Cancelled 23 BUN Cancelled 38 H Creatinine Cancelled 1.84 H Glucose Cancelled 135 H Calcium Cancelled 8.5 AST Cancelled 26 ALT Cancelled 17 Alkaline Phosphatase Cancelled 146 H Total Protein Cancelled 7.6 Albumin Cancelled 3.8 Current Medications Generic Name Dose Route Start Last Admin Trade Name Freq PRN Reason Stop Dose Admin Acetaminophen 650 mg 09/30/24 00:38 09/30/24 00:59 Acetaminophen Tab 325 Mg Tab PO 650 mg Q6HR PRN Administration Fever and/ or Pain Albuterol/Ipratropium 3 ml 09/29/24 20:42 Ipratropium-Albuterol 3 Ml Neb INHALATION RT-QID PRN Shortness Of Breath Or Wheezing Enoxaparin Sodium 30 mg 09/30/24 09:00 Enoxaparin 30 Mg/0.3 Ml Syringe SQ DAILY CARMENCITA Famotidine 10 mg 09/30/24 09:00 Famotidine 20 Mg/2 Ml Vial IV Q12HR CARMENCITA Furosemide 40 mg 09/29/24 16:00 09/30/24 00:17 Furosemide 40 Mg Tab PO 40 mg Q8HR CARMENCITA Administration Melatonin 3 mg 09/30/24 00:45 09/30/24 00:59 Melatonin 3 Mg Tablet PO 3 mg HS CARMENCITA Administration Metoprolol Tartrate 12.5 mg 09/29/24 21:00 09/29/24 21:42 Metoprolol Tartrate 12.5 Mg Tab PO 12.5 mg BID CARMENCITA Administration Nicotine 1 patch 09/29/24 21:00 09/29/24 21:42 Nicotine 21mg/24hr Patch TRANSDERM 1 patch DAILY CARMENCITA Administration Tamsulosin HCl 0.4 mg 09/30/24 08:30 Tamsulosin 0.4 Mg Cap.Er.24h PO PC-[id number] CARMENCITA Intake and Output 09/29/24 09/30/24 09/30/24 22:59 06:59 14:59 Output Total 450 Balance -450 Output: Urine 450 Uretheral (Dawson) 450 09/30/24 07:12 09/29/24 21:14
--- NOTE | 2024-09-30 11:57 | CA ---
Transthoracic Echo Report Name: Andriy Watts Age: 59 Gender: M : 1965 Exam Date: 09/30/2024 10:39 Exam Location: [facility] Ht (in): 68 Wt (lb): 155 Ordering Physician: Vlad Willis MD Attending/Referring Phys: [id number], Lazaro Seo Marketing Specialist Judy Medina, NETO Procedure CPT: Indications: Chest Pain Cardiac Hx: Technical Quality: Fair Contrast 1: Total Dose (mL): Contrast 2: Total Dose (mL): MEASUREMENTS (Male / Female) Normal Values 2D ECHO LV Diastolic Diameter PLAX 5.9 cm 4.2 - 5.9 / 3.9 - 5.3 cm LV Systolic Diameter PLAX 5.3 cm IVS Diastolic Thickness 1.2 cm 0.6 - 1.0 / 0.6 - 0.9 cm LVPW Diastolic Thickness 1.4 cm 0.6 - 1.0 / 0.6 - 0.9 cm LV Relative Wall Thickness 0.4 RV Internal Dim ED PLAX 3.1 cm LA Systolic Diameter LX 3.9 cm 3.0 - 4.0 / 2.7 - 3.8 cm LV Diastolic Volume MOD 4C 153.2 cm??? LV Systolic Volume MOD 4C 97.8 cm??? LV Ejection Fraction MOD 4C 36.2 % LV Cardiac Index MOD 4C 2499.0 cm???/min???m??? LV Diastolic Length 4C 9.2 cm LV Systolic Length 4C 8.4 cm LV Diastolic Volume MOD 2C 150.1 cm??? LV Systolic Volume MOD 2C 83.2 cm??? LV Ejection Fraction MOD 2C 44.5 % LV Cardiac Index MOD 2C 3012.9 cm???/min???m??? LV Diastolic Length 2C 9.6 cm LV Systolic Length 2C 8.8 cm LA Volume 101.3 cm??? 18 - 58 / 22 - 52 cm??? LA Volume Index 55.0 cm???/m??? 16 - 28 cm???/m??? M-MODE Aortic Root Diameter MM 3.7 cm AV Cusp Separation MM 2.4 cm DOPPLER AV Peak Velocity 143.2 cm/s AV Peak Gradient 8.2 mmHg MV Area PHT 4.9 cm??? Mitral E Point Velocity 138.1 cm/s Mitral A Point Velocity 50.8 cm/s Mitral E to A Ratio 2.7 MV Deceleration Time 154.6 ms TR Peak Velocity 333.2 cm/s TR Peak Gradient 44.4 mmHg Right Ventricular Systolic Press 47.0 mmHg FINDINGS Left Ventricle Left ventricular ejection fraction is estimated at 30-35 %. Mildly increased septal wall thickness. Left ventricular cavity size normal. Severely reduced global left ventricular systolic function. Right Ventricle Normal right ventricular size and function. Moderate pulmonary hypertension. Right ventricular systolic pressure estimated at 47 mm hg. Right Atrium Normal right atrial size. No right atrial thrombus or mass seen. Left Atrium Severely increased left atrial volume. Mildly increased left atrial area. Mitral Valve Mitral valve thickened. Mild mitral regurgitation. Aortic Valve Trileaflet aortic valve. No aortic valve stenosis or regurgitation. Tricuspid Valve Structurally normal tricuspid valve. [id number] tricuspid regurgitation. Pulmonic Valve Pulmonic valve not well visualized. Pericardium No pericardial effusion. Aorta Normal size aortic root and proximal ascending aorta. CONCLUSIONS LV left ventricle is enlarged there is global decrease in contractility estimated ejection fraction of about 30-35 %. Moderate pulmonary hypertension mild mitral and tricuspid regurgitation. No pericardial effusion Previewed by: Dr. Linda Burnett MD (Electronically Signed) Final Date: 30 September 2024 11:57
[2024-09-30] MEDS: guaiFENesin-DM 100-10MG/5ML 10 ML CUP PO PRN (12:42)
[2024-09-30 16:13] LABS: Chol/HDL Ratio 2.78 Ratio; LDL Cholesterol,Calculated 114.4 mg/dL (0.0-131.0); VLDL Calculation 13.68 mg/dL (5.00-40.00)
[2024-09-30 16:20] LABS: Chol/HDL Ratio 2.74 Ratio; LDL Cholesterol,Calculated 103.3 mg/dL (0.0-131.0); VLDL Calculation 14.66 mg/dL (5.00-40.00)
--- NOTE | 2024-09-30 16:58 | NM ---
EXAMINATION TYPE: NM pul vent and perfuse DATE OF EXAM: 09/30/2024 CLINICAL INDICATION: Male, 59 years old with history of elevated d-dimer, r/o PE; COMPARISON: Chest x-ray 09/29/2024 TECHNIQUE: Utilizing inhalation of 65.5 mCi Tc 99m DTPA aerosol and intravenous injection of 5.25 mC i of Tc 99m MAA, ventilation and perfusion images are acquired post injection in multiple projections . FINDINGS: Normal radiotracer distribution is noted in the lungs. Moderate or large mismatch defects are not navjot dent. There are small pleural effusions present on the comparison chest film. These areas have diminished r adiotracer on both elation and perfusion. Triple matched defect is present, this would place the cammie ent into the low-grade of intermediate probability for pulmonary embolism, approximately 22% chance. IMPRESSION: Low end of intermediate probability for acute pulmonary embolus. [facility], , 09/30/2024 4:56 PM
[2024-09-30] MEDS: carvediloL 6.25 MG TAB PO SCH (17:32)
[2024-09-30] MEDS: ATORVASTATIN 40 MG TAB PO SCH (20:34)
[2024-09-30] MEDS: NICOTINE 21MG/24HR PATCH TRANSDERM SCH (20:35)
[2024-10-01 00:54] LABS: Glucose,Whole Blood 159 mg/dL (70-110)
[2024-10-01] MEDS: ENOXAPARIN 40 MG/0.4 ML SYRINGE SQ SCH (09:18)
[2024-10-01] MEDS ORDERED: HYDROcodone/APAP 5-325MG 1 EACH TAB PO STA (09:25)
[2024-10-01] MEDS: HYDROcodone/APAP 5-325MG 1 EACH TAB PO STA (10:04)
[2024-10-01] MEDS: carvediloL 6.25 MG TAB PO STA (10:04)
--- NOTE | 2024-10-01 12:19 | P.PN ---
Subjective This is a pleasant 59 years old male with no significant past medical history. Who does not follow-up with PCP. Presents because of feeling short of breath for the last 6 days. Patient also reports having some chest pain when he came into the hospital, as per patient is gone now and rated as 0/10. He has been having some cough and green phlegm for the last 5 days He smokes 1 pack/day and he were counseled to quit and he agrees and he wants nicotine patch but no alcohol or illicit drugs He has mild headache. He has some wobbly walking because of his knee replacement. But no new weakness No specific GI/ symptom On admission he stated Clinic with a heart rate of breathing is 20-22. He was saturating 94% on 4 L oxygen via nasal cannula. Labs reviewed. He WBC is mildly up at 11,000. Rest of CBC is unremarkable Creatinine 1.8. Liver enzymes are unremarkable. INR 1.1 Troponin is elevated at 0.04 proBNP is elevated 11 300 Chest x-ray showing cardiomegaly with pulmonary vascular congestion and bilateral pleural effusion. With some atelectasis, pneumonia felt less likely Pro- Calcitonin is pending EKG showing sinus tachycardia at 100% with no significant ST-T changes Patient received aspirin in the emergency room at 325 mg and started on Lasix. 09/30 Patient is still tachypneic and dyspneic. Also patient reports improvement in his breathing He denies chest pain. No significant coughing. Still with bilateral pitting leg edema more on the left side. He has evidence of urinary retention with bladder scan 421. Dawson catheter was inserted. We will add Flomax. He made good urine output overnight. Repeat potassium was 5.9. Creatinine 1.8. Monitor labs later on today. Echocardiogram is pending 10/01 Patient sitting up in bed He feels his breathing is little better but not significantly improved. He still slightly tachypneic and wheezing This morning his Dawson catheter was bothering him and he wanted to be taken out. Dawson catheter was removed and will keep checking his bladder scan He is on normal saline 75 mL/h D-dimer was elevated at three 1.49 Pulmonary perfusion scan showing low of intermediate probability of PE We will check leg ultrasound We will consult pulmonary service for shortness of breath Start prednisone 50 mg for his wheezing Review of systems CONSTITUTIONAL: No fever, no malaise, no fatigue. HEENT: No recent visual problems or hearing problems. Denied any sore throat HEMATOLOGICAL: Denies any bleeding or petechiae. GENITOURINARY: Denies any burning micturition, frequency, or urgency. MUSCULOSKELETAL/RHEUMATOLOGICAL: Denies any joint pain, swelling, or any muscle pain. ENDOCRINE: Denies any polyuria or polydipsia. Active Medications Generic Name Dose Route Start Last Admin Trade Name Freq PRN Reason Stop Dose Admin Acetaminophen 650 mg 09/30/24 00:38 10/01/24 09:18 Acetaminophen Tab 325 Mg Tab PO 650 mg Q6HR PRN Administration Fever and/ or Pain Hydrocodone Bitart/Acetaminophen 1 each 10/01/24 09:28 Hydrocodone/Apap 5-325mg 1 Each Tab PO Q12HR PRN Pain Albuterol/Ipratropium 3 ml 09/29/24 20:42 10/01/24 11:47 Ipratropium-Albuterol 3 Ml Neb INHALATION 3 ml RT-QID PRN Administration Shortness Of Breath Or Wheezing Aspirin 81 mg 09/30/24 09:00 10/01/24 09:18 Aspirin 81 Mg PO 81 mg DAILY CARMENCITA Administration Atorvastatin Calcium 40 mg 09/30/24 21:00 09/30/24 20:34 Atorvastatin 40 Mg Tab PO 40 mg HS CARMENCITA Administration Carvedilol 12.5 mg 10/01/24 17:30 Carvedilol 12.5 Mg Tab PO BID-W/MEALS CARMENCITA Enoxaparin Sodium 40 mg 10/01/24 09:00 10/01/24 09:18 Enoxaparin 40 Mg/0.4 Ml Syringe SQ 40 mg DAILY CARMENCITA Administration Famotidine 10 mg 09/30/24 09:00 10/01/24 09:17 Famotidine 20 Mg/2 Ml Vial IV 10/01/24 21:59 10 mg Q12HR CARMENCITA Administration Famotidine 20 mg 10/02/24 09:00 Famotidine 20 Mg Tab PO DAILY CARMENCITA Furosemide 40 mg 10/02/24 09:00 Furosemide 40 Mg Tab PO DAILY CARMENCITA Guaifenesin/Dextromethorphan 10 ml 09/30/24 11:30 09/30/24 12:42 Guaifenesin-Dm 100-10mg/5ml 10 Ml Cup PO 10 ml Q8HR PRN Administration Cough Melatonin 3 mg 09/30/24 00:45 09/30/24 20:34 Melatonin 3 Mg Tablet PO 3 mg HS CARMENCITA Administration Nicotine 1 patch 09/30/24 21:00 09/30/24 20:35 Nicotine 21mg/24hr Patch TRANSDERM 1 patch HS CARMENCITA Administration Prednisone 50 mg 10/01/24 12:15 Prednisone 50 Mg Tab PO DAILY CARMENCITA Tamsulosin HCl 0.4 mg 09/30/24 08:30 10/01/24 09:18 Tamsulosin 0.4 Mg Cap.Er.24h PO 0.4 mg PC-[id number] CARMENCITA Administration Objective - Vital Signs Vital signs: Vital Signs Temp 98.4 F 10/01/24 12:00 Pulse 71 10/01/24 12:00 Resp 19 10/01/24 12:00 BP 137/90 10/01/24 12:00 Pulse Ox 100 10/01/24 12:00 FiO2 Intake & Output 09/30/24 10/01/24 10/01/24 18:59 06:59 18:59 Intake Total 220 Output Total 780 550 500 Balance -780 -550 -280 Weight 70.307 kg 69.4 kg 77.973 kg Intake: Oral 220 Output: Urine 780 550 500 Uretheral (Dawson) 780 Other: Voiding Method Indwelling Catheter Indwelling Catheter Indwelling Catheter - Exam GENERAL: The patient is alert and oriented x3, not in any acute distress. Well developed, well nourished. HEENT: Pupils are round and equally reacting to light. EOMI. No scleral icterus. No conjunctival pallor. Normocephalic, atraumatic. No pharyngeal erythema. No thyromegaly. CARDIOVASCULAR: S1 and S2 present. No murmurs, rubs, or gallops. -PULMONARY: Chest is clear to auscultation, n bilateral expiratory o wheezing , bilateral basal crackles. ABDOMEN: Soft, nontender, nondistended, normoactive bowel sounds. No palpable organomegaly. MUSCULOSKELETAL: No joint swelling or deformity. -EXTREMITIES: No cyanosis, clubbing, . pt has bilateral pitting leg edema. More on the left side NEUROLOGICAL: Gross neurological examination did not reveal any focal deficits. SKIN: No rashes. no petechiae. - Labs CBC & Chem 7: 09/30/24 07:12 09/30/24 07:12 Labs: Abnormal Lab Results - Last 24 Hours (Table) 09/30/24 09/30/24 09/30/24 Range/Units 07:12 09:27 09:27 POC Glucose (mg/dL) (70-110) mg/dL Hemoglobin A1c 6.2 H (<=6.0) % HDL Cholesterol 68.00 H 71.90 H (40.00-60.00) mg/dL 10/01/24 Range/Units 00:51 POC Glucose (mg/dL) 159 H (70-110) mg/dL Hemoglobin A1c (<=6.0) % HDL Cholesterol (40.00-60.00) mg/dL Assessment and Plan Assessment: Acute hypoxic respiratory failure Acute congestive heart failure, new onset. Unknown ejection fraction elevated troponin. Rule out obstructive coronary artery disease Possible acute COPD exacerbation elevated D-dimer with Low and of intermediate probability of PE Acute kidney injury could be cardiorenal syndrome. Rule out obstructive uropathy and other etiologies. Acute urinary retention status post Dawson catheter insertion in emergency room Nicotine dependence. Patient counseled and he agrees to the nicotine patch Plan: Continue with Lasix. Monitor creatinine and input and output and electrolytes Currently on Coreg Continue with aspirin Check ultrasound of the lower extremity Follow-up ultrasound of the kidney Nephrology team consult Pulmonary team consult Cardiology team consult Dawson catheter discontinued, keep monitoring bladder scan Labs and medication were reviewed.. Continue same treatment. Continue with symptomatic treatment. Resume home medication. Monitor labs and vitals. DVT and GI prophylaxis. Further recommendations as per clinical course of the patient DVT prophylaxis: Subcutaneous Lovenox GI Prophylaxis: Pepcid PT/OT: Pending Prognosis is guarded
--- NOTE | 2024-10-01 12:39 | P.PN ---
Subjective HISTORY OF PRESENT ILLNESS: This is a 59-year-old male with a past medical history significant for hypertension and nicotine dependence. 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 We have been asked to see the patient in consultation for CHF. Patient examined at the bedside in the emergency room. Patient states he has been feeling short of breath for the past week. He states he has been using a friend's inhaler without much relief. He reports having an episode yesterday of chest pain in the left upper chest region. Denies any further episodes of chest discomfort. He does report dizziness and lightheadedness with ambulation. He is currently on oxygen which she states has helped his shortness of breath. He still continues to report shortness of breath with exertion. Patient states that he moved from [place] and has not established with a primary care physician yet. He states he used to be on blood pressure medications but states he has not been on them since moving to [place]. The patient was found to have acute kidney injury with a creatinine of 2.07. Previous creatinine in March 2024 1.26. Patient was also found to have urinary retention and has indwelling urinary catheter placed. The patient does report he is a current smoker and smokes 1 pack/day. He reports 2 alcoholic drinks a month. He denies any drug use including marijuana. DIAGNOSTICS: - EKG reveals sinus tachycardia with PVCs - Chest xray cardiomegaly, pulmonary vascular congestion and bilateral small pleural effusions. Additionally there are bibasilar patchy airspace opacities may represent atelectasis with superimposed infectious process not excluded - Laboratory data: WBC 8.6. Hemoglobin 11.4. Platelet count 354. Sodium 136. Potassium 5.7. BUN 50. Creatinine 2.07. Magnesium 2.0. Creatinine 0.040. 0.052. Procalcitonin 0.14. - Current home cardiac medications include none -No previous echocardiogram, stress test, or cardiac catheterization available in EMR for review 10/01/2024 Patient examined this morning at the bedside. Patient currently denies chest pain or pressure. He continues to have shortness of breath with wheezing upon examination. He remains on IV Lasix. VQ scan completed revealing low end of intermediate probability for pulmonary embolism. Echocardiogram completed revealing ejection fraction 30 to 35%, moderate pulmonary hypertension, mild mitral regurgitation, mild tricuspid regurgitation. PHYSICAL EXAM: VITAL SIGNS: Reviewed. GENERAL: Well-developed in no acute distress. HEENT: Head is normocephalic. Pupils are equal, round. Sclerae anicteric. Mucous membranes of the mouth are moist. Neck supple. No JVD or thyromegaly LUNGS: Respirations even and unlabored. Lungs with with expiratory wheezing noted HEART: Regular rate and rhythm. S1 and S2 heard. ABDOMEN: Soft. Nondistended. Nontender. EXTREMITIES: Normal range of motion. No clubbing or cyanosis. Peripheral pulses intact. No lower extremity edema NEUROLOGIC: Awake and alert. Oriented x 3. ASSESSMENT: Shortness of breath Acute heart failure with reduced EF 30-35% New onset cardiomyopathy, ischemic versus nonischemic Acute hypoxic respiratory failure requiring supplemental oxygen Acute kidney injury Hyperkalemia Abnormal troponins, type II [place], secondary to oxygen supply/demand mismatch, no evidence of acute coronary syndrome Urinary retention requiring indwelling urinary catheter Hypertension Suspected COPD Nicotine dependence PLAN: Continue current cardiac medications Discontinue IV Lasix. Begin oral Lasix 40 mg daily Continue to monitor kidney function. Awaiting labs from this a.m. Increase carvedilol to 12.5 mg twice a day Smoking cessation recommended. Patient to be referred to [place] quit line up on discharge Further recommendations pending patient course Nurse practitioner note has been reviewed by physician. Signing provider agrees with the documented findings, assessment, and plan of care documented by MEDICAL AIDE as a scribe. Objective - Vital Signs Vital signs: Vital Signs Temp 98.4 F 10/01/24 12:00 Pulse 71 10/01/24 12:00 Resp 19 10/01/24 12:00 BP 137/90 10/01/24 12:00 Pulse Ox 100 10/01/24 12:00 FiO2 Intake & Output 09/30/24 10/01/24 10/01/24 18:59 06:59 18:59 Intake Total 220 Output Total 780 550 500 Balance -780 -550 -280 Weight 70.307 kg 69.4 kg 77.973 kg Intake: Oral 220 Output: Urine 780 550 500 Uretheral (Dawson) 780 Other: Voiding Method Indwelling Catheter Indwelling Catheter Indwelling Catheter - Labs CBC & Chem 7: 09/30/24 07:12 09/30/24 07:12 Labs: Abnormal Lab Results - Last 24 Hours (Table) 09/30/24 09/30/24 09/30/24 Range/Units 07:12 09:27 09:27 POC Glucose (mg/dL) (70-110) mg/dL Hemoglobin A1c 6.2 H (<=6.0) % HDL Cholesterol 68.00 H 71.90 H (40.00-60.00) mg/dL 10/01/24 Range/Units 00:51 POC Glucose (mg/dL) 159 H (70-110) mg/dL Hemoglobin A1c (<=6.0) % HDL Cholesterol (40.00-60.00) mg/dL
[2024-10-01 12:57] LABS: African American GFR (CKD) 41 (>60 ml/min/1.73 sqM); Anion Gap 5 mmol/L; Blood Urea Nitrogen 60 mg/dL (9-20); Calcium 9.1 mg/dL (8.4-10.2); Carbon Dioxide 28 mmol/L (22-30); Chloride 102 mmol/L (98-107); Glucose 125 mg/dL (74-99); Non-African American GFR(CKD) 35 (>60 ml/min/1.73 sqM); Sodium 135 mmol/L (137-145)
[2024-10-01 13:04] LABS: Potassium 6.1 mmol/L (3.5-5.1)
--- NOTE | 2024-10-01 13:09 | P.NPCON ---
History of Present Illness - Reason for Consult acute renal failure - History of Present Illness patient is a 59-year-old male with history of hypertension and recently diagnosed chronic kidney disease. Patient has just moved to [place] recently and establishing care with various physicians. He is admitted to the hospital with complaints of increasing shortness of breath and lower extremity swelling. No complaints of fever chills nausea or vomiting. Currently being diuresed for volume overload. Chest x-ray showed pulmonary vascular congestion and pleural effusions. Patient is not aware of his baseline renal function but we do have a serum creatinine of 1.26 on 04/04/2024. Serum creatinine was 1.8 on admission and 2.0 yesterday. Labs are pending from today. Currently with indwelling Dawson catheter for urine retention. 421 mL of urine documented on bladder scan. Blood pressure has not been low. Patient did admit to use of NSAIDs on and off. 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 Past Anesthesia/Blood Transfusion Reactions: No Reported Reaction Past Psychological History: No Psychological Hx Reported Smoking Status: Current every day smoker Past Alcohol Use History: Occasional Past Drug Use History: None Reported - Past Family History Sister(s) Family Medical History: Cancer Additional Family Medical History / Comment(s): breast cancer, at 57 from cancer Father Family Medical History: Dementia Additional Family Medical History / Comment(s): alzheimers Medications and Allergies Home Medications Medication Instructions Recorded Confirmed Type No Known Home Medications 09/29/24 09/29/24 History Allergies Allergy/AdvReac Type Severity Reaction Status Date / Time No Known Allergies Allergy Verified 09/29/24 12:56 Physical Exam Vitals: Vital Signs Temp Pulse Pulse Resp BP BP Pulse Ox 10/01/24 12:00 98.4 F 72 71 19 137/90 100 10/01/24 11:48 72 10/01/24 09:26 72 10/01/24 09:13 76 10/01/24 08:00 98.3 F 71 19 128/77 96 10/01/24 04:00 98.1 F 86 18 147/90 98 12/12/24 00:00 88 18 139/81 97 09/30/24 21:24 88 09/30/24 21:13 87 09/30/24 20:00 98.0 F 86 18 149/79 100 09/30/24 17:30 90 19 146/91 100 09/30/24 14:00 98.2 F 88 17 146/90 97 09/30/24 13:48 83 22 135/95 96 Intake and Output 09/30/24 10/01/24 10/01/24 22:59 06:59 14:59 Intake Total 220 Output Total 550 500 Balance -550 -280 Intake: Oral 220 Output: Urine 550 500 Other: Voiding Method Indwelling Catheter Indwelling Catheter Indwelling Catheter Weight 69.4 kg 77.973 kg patient is awake, comfortable, no acute distress. Examination of the heart S1 and S2 Examination of the lungs bilateral breath sounds are heard Abdomen is soft nontender Examination of lower extremities shows edema 2+ bilaterally [employer] exam grossly intact Results - Lab Results Most recent lab results Calcium 8.8 mg/dL (8.4-10.2) 09/30/24 07:12 Magnesium 2.0 mg/dL (1.6-2.3) 09/29/24 14:29 09/30/24 07:12 09/30/24 07:12 Assessment and Plan Assessment: 1. Acute kidney injury nonoliguric, mostly cardiorenal, currently being diuresed. Component of urine retention noted with indwelling Dawson catheter currently. UA shows 3+ protein small blood. Ultrasound of the kidneys will be ordered. 2. Chronic kidney disease stage III a with previous creatinine 1.26 in March 2024 3. Hypertension with CK D stage III 4. History of CHF, EF not known 5. Hyperkalemia associated with urine retention and acute kidney injury. Blood sugar is not elevated. No evidence of GI bleed. 6. Acute hypoxic respiratory failure Plan: continue with indwelling Dawson catheter Maintain low potassium diet Patient is advised to avoid further use of NSAIDs Add lokelma Continue with Lasix thank you for the consultation. We will continue to follow the patient with you during his hospitalization.
[2024-10-01] MEDS: SODIUM ZIRCONIUM CYCLOSILICATE 10 GM PACKET PO ONE (13:54)
[2024-10-01] MEDS: INSULIN REGULAR 100 UNIT/ML VIAL (IV) IV ONE (13:55)
[2024-10-01] MEDS: predniSONE 50 MG TAB PO SCH (13:55)
[2024-10-01] MEDS: CALCIUM GLUCONATE IN NACL 1 GM in SALINE 1 100ML.BAG IVPB ONE (13:55)
[2024-10-01] MEDS: DEXTROSE 50% SYRINGE 50 ML IVP STA (13:55)
[2024-10-01] MEDS: SODIUM BICARB 8.4% 50 ML SYR (1 MEQ/ML) IV STA (14:15)
--- NOTE | 2024-10-01 15:12 | P.CNPUL ---
History of Present Illness Consult date: 10/01/24 Requesting physician: Vlad Willis Reason for consult: COPD Chief complaint: Shortness of breath History of present illness: This is a very pleasant 59-year-old male patient with a known history of congestive heart failure, diabetes mellitus type 2, COPD, ongoing smoker of 40 years, hypertension, hyperlipidemia, chronic kidney disease who had recently moved here from [place]. He presented to the emergency room on September 29, 2024 with complaints of shortness of breath and left-sided chest pain. Chest x- ray was consistent with congestive heart failure. proBNP was 11,300. VQ scan revealed low probability for PE. Echocardiogram reveals impaired left ventricular systolic function with ejection fraction of 30 to 35%. Moderate pulmonary hypertension. He is seen today in consultation on the selective care unit. He is currently sitting up in bed. Awake and alert in no acute distress. Maintaining good O2 saturations in the 90s on 3 L/min per nasal cannula. He states he is breathing better compared to when he first came in. White count 8.6. Hemoglobin 11.4. Platelets 354. Sodium 135. Potassium 6.1. Bicarb 28. BUN 60. Creatinine 1.99. Glucose 125. He was initiated on DuoNeb inhalations, prednisone and IV diuretics. Lovenox for DVT prophylaxis. NicoDerm patch in place. Review of Systems REVIEW OF SYSTEMS: CONSTITUTIONAL: Denies any recent significant weight loss or weight gain. EYES: Denies change in vision. EARS, NOSE, MOUTH, THROAT: Denies headaches, denies sore throat. CARDIOVASCULAR: Positive for chest pain, palpitations or syncopal episodes. RESPIRATORY: Positive for shortness of breath, cough, congestion no hemoptysis. GASTROINTESTINAL: Denies change in appetite, denies abdominal pain GENITOURINARY: Denies hematuria, denies infections. MUSKULOSKELETAL: Denies pain, denies swelling. INTEGUMENTARY: Denies rash, denies eczema. NEUROLOGICAL: Denies recent memory loss, no recent seizure activity. PSYCHIATRIC: Denies anxiety, denies depression. HEMATOLOGIC/LYMPHATIC: Denies anemia, denies enlarged lymph nodes. 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 Past Anesthesia/Blood Transfusion Reactions: No Reported Reaction Past Psychological History: No Psychological Hx Reported Smoking Status: Current every day smoker Past Alcohol Use History: Occasional Past Drug Use History: None Reported - Past Family History Sister(s) Family Medical History: Cancer Additional Family Medical History / Comment(s): breast cancer, at 57 from cancer Father Family Medical History: Dementia Additional Family Medical History / Comment(s): alzheimers Medications and Allergies Home Medications Medication Instructions Recorded Confirmed Type No Known Home Medications 09/29/24 09/29/24 History Allergies Allergy/AdvReac Type Severity Reaction Status Date / Time No Known Allergies Allergy Verified 09/29/24 12:56 Physical Exam Vitals: Vital Signs Temp Pulse Pulse Resp BP Pulse Ox 10/01/24 13:50 71 19 10/01/24 12:00 98.4 F 72 71 19 137/90 100 10/01/24 11:48 72 10/01/24 09:26 72 10/01/24 09:13 76 10/01/24 08:00 98.3 F 71 19 128/77 96 10/01/24 04:00 98.1 F 86 18 147/90 98 10/01/24 00:00 88 18 139/81 97 09/30/24 21:24 88 09/30/24 21:13 87 09/30/24 20:00 98.0 F 86 18 149/79 100 09/30/24 17:30 90 19 146/91 100 Intake and Output 10/01/24 10/01/24 10/01/24 06:59 14:59 22:59 Intake Total 220 Output Total 871 Balance -651 Intake: Oral 220 Output: Urine 500 Post Void Residual 371 Other: Voiding Method Indwelling Catheter Urinal Weight 69.4 kg 77.973 kg GENERAL EXAM: Alert, very pleasant 59-year-old male, on 3 L nasal cannula, fairly comfortable in no apparent distress. HEAD: Normocephalic. EYES: Normal reaction of pupils, equal size. NOSE: Clear with pink turbinates. THROAT: No erythema or exudates. NECK: No masses, no JVD. CHEST: No chest wall deformity. LUNGS: Equal air entry with bibasilar crackles. CVS: S1 and S2 normal with no audible murmur, regular rhythm. ABDOMEN: No hepatosplenomegaly, normal bowel sounds, no guarding or rigidity. SPINE: No scoliosis or deformity SKIN: No rashes CENTRAL NERVOUS SYSTEM: No focal deficits, tone is normal in all 4 extremities. EXTREMITIES: There is 1+ peripheral edema. No clubbing, no cyanosis. Periphe ral pulses are intact. Results - Laboratory Findings CBC and BMP: 09/30/24 07:12 10/01/24 12:17 PT/INR, D-dimer PT 12.0 sec (10.0-12.5) 09/29/24 13:05 INR 1.1 (<1.2) 09/29/24 13:05 D-Dimer 1.49 mg/L FEU (<0.60) H 09/30/24 09:27 Abnormal lab findings: Abnormal Labs 09/29/24 09/29/24 09/29/24 13:05 14:29 14:29 WBC 11.0 H RBC Hgb Hct Neutrophils # 9.5 H Lymphocytes # 0.8 L D-Dimer Sodium 133 L Potassium 5.5 H BUN 38 H Creatinine 1.84 H Glucose 135 H POC Glucose (mg/dL) Hemoglobin A1c Alkaline Phosphatase 146 H Troponin I 0.040 H* HDL Cholesterol Urine Protein Urine Glucose (UA) Urine Blood Urine RBC Amorphous Sediment Hyaline Casts Urine Mucus 09/29/24 09/29/24 09/29/24 16:58 21:14 21:14 WBC RBC Hgb Hct Neutrophils # Lymphocytes # D-Dimer Sodium Potassium 5.9 H BUN Creatinine Glucose POC Glucose (mg/dL) 148 H Hemoglobin A1c Alkaline Phosphatase Troponin I 0.052 H* HDL Cholesterol Urine Protein Urine Glucose (UA) Urine Blood Urine RBC Amorphous Sediment Hyaline Casts Urine Mucus 09/30/24 09/30/24 09/30/24 03:00 07:12 07:12 WBC RBC 3.97 L Hgb 11.4 L Hct 36.8 L Neutrophils # Lymphocytes # 0.6 L D-Dimer Sodium 136 L Potassium 5.7 H BUN 50 H Creatinine 2.07 H Glucose 172 H POC Glucose (mg/dL) Hemoglobin A1c Alkaline Phosphatase Troponin I HDL Cholesterol 68.00 H Urine Protein 3+ H Urine Glucose (UA) Trace H Urine Blood Small H Urine RBC 13 H Amorphous Sediment Rare H Hyaline Casts 14 H Urine Mucus Few H 09/30/24 09/30/24 09/30/24 09:27 09:27 09:27 WBC RBC Hgb Hct Neutrophils # Lymphocytes # D-Dimer 1.49 H Sodium Potassium BUN Creatinine Glucose POC Glucose (mg/dL) Hemoglobin A1c 6.2 H Alkaline Phosphatase Troponin I HDL Cholesterol 71.90 H Urine Protein Urine Glucose (UA) Urine Blood Urine RBC Amorphous Sediment Hyaline Casts Urine Mucus 10/01/24 10/01/24 00:51 12:17 WBC RBC Hgb Hct Neutrophils # Lymphocytes # D-Dimer Sodium 135 L Potassium 6.1 H* BUN 60 H Creatinine 1.99 H Glucose 125 H POC Glucose (mg/dL) 159 H Hemoglobin A1c Alkaline Phosphatase Troponin I HDL Cholesterol Urine Protein Urine Glucose (UA) Urine Blood Urine RBC Amorphous Sediment Hyaline Casts Urine Mucus - Diagnostic Findings Chest x-ray: image reviewed Assessment and Plan Assessment: Acute hypoxemic respiratory failure secondary to an acute exacerbation of chronic systolic congestive heart failure with impaired left ventricular systolic function with an ejection fraction of 30 to 35% Acute exacerbation of chronic obstructive pulmonary disease Chronic and ongoing tobacco dependence of 40 years Acute on chronic kidney disease Hyperkalemia secondary to above History of congestive heart failure Diabetes mellitus, type II Hypertension Hyperlipidemia Plan: The patient was seen and evaluated Chest x-ray, labs and medications reviewed Echocardiogram reviewed Ventilation/perfusion scan reviewed Continue IV diuretics Continue bronchodilators and steroids Titrate down the FiO2 as tolerated Educated regarding the importance of smoking cessation NicoDerm patch in place He will need to establish with a primary care doctor and multiple specialist here in town We will continue to follow and make further recommendations based on his clinical status I have personally seen and examined the patient, performed the documentation and the assessment and plan as written. Number of minutes spent on the visit: 20 Dictation was produced using [employer] software. Please excuse any grammatical, word or spelling errors.
--- NOTE | 2024-10-01 15:25 | US ---
EXAMINATION TYPE: US kidneys/renal and bladder DATE OF EXAM: 10/01/2024 Exam done portable COMPARISON: NONE CLINICAL INDICATION: Male, 59 years old with history of CORBY; TECHNIQUE: Grayscale imaging of the bilateral kidneys and urinary bladder: FINDINGS: EXAM MEASUREMENTS: Right Kidney: 11.4 x 5.6 x 5.9 cm Left Kidney: 10.9 x 5.8 x 6.2 cm Right Kidney: 0.7cm echogenic focus medial mid pole Left Kidney: inferior pole limited by overlying bowel gas Bladder: wnl Bilateral Jets seen: yes Right pleural effusion There is no evidence for hydronephrosis at this point in time. No masses are identified. The urinar y bladder is anechoic. IMPRESSION: 1. No evidence for obstructive uropathy. 2. Right nonobstructing calculus. [facility], , 10/01/2024 3:23 PM
--- NOTE | 2024-10-01 15:30 | US ---
EXAMINATION TYPE: US venous doppler duplex LE BI DATE OF EXAM: 10/01/2024 3:12 PM Exam done portable COMPARISON: NONE CLINICAL INDICATION: Male, 59 years old with history of leg swelling; , Pain TECHNIQUE: The lower extremity deep venous system is examined utilizing real time linear array sonog jonny with graded compression, color doppler sonography, and spectral doppler. SIDE PERFORMED: Bilateral FINDINGS: VESSELS IMAGED: Common Femoral Vein Deep Femoral Vein Greater Saphenous Vein * Femoral Vein Popliteal Vein Small Saphenous Vein * Proximal Calf Veins (* superficial vessels) Right Leg: Appears negative for DVT Left Leg: Appears negative for DVT There is color flow with normal spectral waveforms and compressibility involving both lower extremiti es. IMPRESSION: No ultrasound evidence for deep venous thrombosis. [facility], , 10/01/2024 3:28 PM
[2024-10-01] MEDS ORDERED: SODIUM ZIRCONIUM CYCLOSILICATE 10 GM PACKET PO SCH (16:00)
[2024-10-01] MEDS: carvediloL 12.5 MG TAB PO SCH (17:17)
[2024-10-01] MEDS: HYDROcodone/APAP 5-325MG 1 EACH TAB PO PRN (20:09)
[2024-10-02 03:16] LABS: Glucose,Whole Blood 198 mg/dL (70-110)
[2024-10-02 07:27] LABS: Basophils % (A) 0 %; Eosinophils # (A) 0.1 k/uL (0-0.7); Eosinophils % (A) 1 %; HCT 39.3 % (39.0-53.0); HGB 12.1 gm/dL (13.0-17.5); Hypochromasia Moderate; Lymphocytes % (A) 13 %; MCH 28.9 pg (25.0-35.0); MCHC 30.7 g/dL (31.0-37.0); MCV 94.3 fL (80.0-100.0); Mean Platelet Volume 8.2; Monocytes # (A) 0.5 k/uL (0-1.0); Monocytes % (A) 7 %; Neutrophils # (A) 6.2 k/uL (1.3-7.7); Neutrophils % (A) 79 %; Platelet Count 281 k/uL (150-450); RBC 4.17 m/uL (4.30-5.90); RDW 14.4 % (11.5-15.5); WBC 7.8 k/uL (3.8-10.6)
[2024-10-02 08:09] LABS: African American GFR (CKD) 41 (>60 ml/min/1.73 sqM); Anion Gap 5 mmol/L; Blood Urea Nitrogen 64 mg/dL (9-20); Calcium 8.7 mg/dL (8.4-10.2); Carbon Dioxide 24 mmol/L (22-30); Chloride 103 mmol/L (98-107); Glucose 205 mg/dL (74-99); Non-African American GFR(CKD) 35 (>60 ml/min/1.73 sqM); Potassium 5.6 mmol/L (3.5-5.1); Sodium 132 mmol/L (137-145)
[2024-10-02] MEDS: FUROSEMIDE 40 MG TAB PO SCH (08:43)
[2024-10-02] MEDS: FAMOTIDINE 20 MG/2 ML VIAL IV SCH (08:51)
[2024-10-02] MEDS ORDERED: FAMOTIDINE 20 MG TAB PO SCH (09:00)
--- NOTE | 2024-10-02 10:50 | P.PN ---
Subjective This is a pleasant 59 years old male with no significant past medical history. Who does not follow-up with PCP. Presents because of feeling short of breath for the last 6 days. Patient also reports having some chest pain when he came into the hospital, as per patient is gone now and rated as 0/10. He has been having some cough and green phlegm for the last 5 days He smokes 1 pack/day and he were counseled to quit and he agrees and he wants nicotine patch but no alcohol or illicit drugs He has mild headache. He has some wobbly walking because of his knee replacement. But no new weakness No specific GI/ symptom On admission he stated Clinic with a heart rate of breathing is 20-22. He was saturating 94% on 4 L oxygen via nasal cannula. Labs reviewed. He WBC is mildly up at 11,000. Rest of CBC is unremarkable Creatinine 1.8. Liver enzymes are unremarkable. INR 1.1 Troponin is elevated at 0.04 proBNP is elevated 11 300 Chest x-ray showing cardiomegaly with pulmonary vascular congestion and bilateral pleural effusion. With some atelectasis, pneumonia felt less likely Pro- Calcitonin is pending EKG showing sinus tachycardia at 100% with no significant ST-T changes Patient received aspirin in the emergency room at 325 mg and started on Lasix. 09/30 Patient is still tachypneic and dyspneic. Also patient reports improvement in his breathing He denies chest pain. No significant coughing. Still with bilateral pitting leg edema more on the left side. He has evidence of urinary retention with bladder scan 421. Dawson catheter was inserted. We will add Flomax. He made good urine output overnight. Repeat potassium was 5.9. Creatinine 1.8. Monitor labs later on today. Echocardiogram is pending 10/01 Patient sitting up in bed He feels his breathing is little better but not significantly improved. He still slightly tachypneic and wheezing This morning his Dawson catheter was bothering him and he wanted to be taken out. Dawson catheter was removed and will keep checking his bladder scan He is on normal saline 75 mL/h D-dimer was elevated at three 1.49 Pulmonary perfusion scan showing low of intermediate probability of PE We will check leg ultrasound We will consult pulmonary service for shortness of breath Start prednisone 50 mg for his wheezing 10/02 Patient feels better, his breathing is better and less wheezing No leg pain and he is walking fine. Ultrasound of the leg is negative for DVT. Patient urinating with no difficulty. He requested Dawson catheter to be removed Renal ultrasound for kidney disease:No evidence of obstructive uropathy and there is right nonobstructive urinary calculus He is currently on Lasix 40 mg daily Getting 10 gmof Lokelma x 4 doses. Potassium better today at 5.6 Creatinine stable at 1.9 Ejection fraction is 30 to 35% per echocardiogram Patient counseled about the importance of outpatient follow-up and need to find a new PCP within a week after discharge and he agrees Review of systems CONSTITUTIONAL: No fever, no malaise, no fatigue. HEENT: No recent visual problems or hearing problems. Denied any sore throat. HEMATOLOGICAL: Denies any bleeding or petechiae. GENITOURINARY: Denies any burning micturition, frequency, or urgency. MUSCULOSKELETAL/RHEUMATOLOGICAL: Denies any joint pain, swelling, or any muscle pain. ENDOCRINE: Denies any polyuria or polydipsia. Active Medications Generic Name Dose Route Start Last Admin Trade Name Rameshq PRN Reason Stop Dose Admin Acetaminophen 650 mg 09/30/24 00:38 10/01/24 09:18 Acetaminophen Tab 325 Mg Tab PO 650 mg Q6HR PRN Administration Fever and/ or Pain Hydrocodone Bitart/Acetaminophen 1 each 10/01/24 09:28 10/01/24 20:09 Hydrocodone/Apap 5-325mg 1 Each Tab PO 1 each Q12HR PRN Administration Pain Albuterol/Ipratropium 3 ml 09/29/24 20:42 10/02/24 08:56 Ipratropium-Albuterol 3 Ml Neb INHALATION 3 ml RT-QID PRN Administration Shortness Of Breath Or Wheezing Aspirin 81 mg 09/30/24 09:00 10/02/24 08:43 Aspirin 81 Mg PO 81 mg DAILY CARMENCITA Administration Atorvastatin Calcium 40 mg 09/30/24 21:00 10/01/24 20:09 Atorvastatin 40 Mg Tab PO 40 mg HS CARMENCITA Administration Carvedilol 12.5 mg 10/01/24 17:30 10/02/24 06:41 Carvedilol 12.5 Mg Tab PO 12.5 mg BID-W/MEALS CARMENCITA Administration Enoxaparin Sodium 40 mg 10/01/24 09:00 10/02/24 08:43 Enoxaparin 40 Mg/0.4 Ml Syringe SQ 40 mg DAILY CARMENCITA Administration Famotidine 10 mg 10/02/24 09:00 10/02/24 08:51 Famotidine 20 Mg/2 Ml Vial IV 10 mg Q12HR CARMENCITA Administration Furosemide 40 mg 10/02/24 09:00 10/02/24 08:43 Furosemide 40 Mg Tab PO 40 mg DAILY CARMENCITA Administration Guaifenesin/Dextromethorphan 10 ml 09/30/24 11:30 09/30/24 12:42 Guaifenesin-Dm 100-10mg/5ml 10 Ml Cup PO 10 ml Q8HR PRN Administration Cough Melatonin 3 mg 09/30/24 00:45 10/01/24 20:09 Melatonin 3 Mg Tablet PO 3 mg HS CARMENCITA Administration Nicotine 1 patch 09/30/24 21:00 10/01/24 18:08 Nicotine 21mg/24hr Patch TRANSDERM 1 patch HS CARMENCITA Administration Prednisone 50 mg 10/01/24 12:15 10/02/24 08:42 Prednisone 50 Mg Tab PO 50 mg DAILY CARMENCITA Administration Sodium Zirconium Cyclosilicate 10 gm 10/02/24 10:15 Sodium Zirconium Cyclosilicate 10 Gm Packet PO 10/03/24 09:01 TID CARMENCITA Tamsulosin HCl 0.4 mg 09/30/24 08:30 10/02/24 08:43 Tamsulosin 0.4 Mg Cap.Er.24h PO 0.4 mg [id number] CARMENCITA Administration Objective - Vital Signs Vital signs: Vital Signs Temp 97.4 F L 10/02/24 08:40 Pulse 72 10/02/24 09:10 Resp 17 10/02/24 08:40 BP 125/83 10/02/24 08:40 Pulse Ox 100 10/02/24 08:40 FiO2 Intake & Output 10/01/24 10/02/24 10/02/24 18:59 06:59 18:59 Intake Total 340 237 110 Output Total 1371 850 Balance -1031 -613 110 Weight 77.973 kg 78.5 kg Intake: Oral 340 237 110 Output: Urine 1000 850 Post Void Residual 371 Other: Voiding Method Urinal Urinal Urinal - Exam GENERAL: The patient is alert and oriented x3, not in any acute distress. Well developed, well nourished. HEENT: Pupils are round and equally reacting to light. EOMI. No scleral icterus. No conjunctival pallor. Normocephalic, atraumatic. No pharyngeal erythema. No thyromegaly. CARDIOVASCULAR: S1 and S2 present. No murmurs, rubs, or gallops. -PULMONARY: Chest is clear to auscultation, n bilateral expiratory o wheezing , bilateral basal crackles. ABDOMEN: Soft, nontender, nondistended, normoactive bowel sounds. No palpable organomegaly. MUSCULOSKELETAL: No joint swelling or deformity. -EXTREMITIES: No cyanosis, clubbing, . pt has bilateral pitting leg edema. More on the left side NEUROLOGICAL: Gross neurological examination did not reveal any focal deficits. SKIN: No rashes. no petechiae. - Labs CBC & Chem 7: 10/02/24 06:43 10/02/24 06:43 Labs: Abnormal Lab Results - Last 24 Hours (Table) 10/01/24 10/02/24 10/02/24 Range/Units 12:17 03:15 06:43 RBC (4.30-5.90) m/uL Hgb (13.0-17.5) gm/dL MCHC (31.0-37.0) g/dL Sodium 135 L 132 L (137-145) mmol/L Potassium 6.1 H* 5.6 H (3.5-5.1) mmol/L BUN 60 H 64 H (9-20) mg/dL Creatinine 1.99 H 1.98 H (0.66-1.25) mg/dL Glucose 125 H 205 H (74-99) mg/dL POC Glucose (mg/dL) 198 H (70-110) mg/dL 10/02/24 Range/Units 06:43 RBC 4.17 L (4.30-5.90) m/uL Hgb 12.1 L (13.0-17.5) gm/dL MCHC 30.7 L (31.0-37.0) g/dL Sodium (137-145) mmol/L Potassium (3.5-5.1) mmol/L BUN (9-20) mg/dL Creatinine (0.66-1.25) mg/dL Glucose (74-99) mg/dL POC Glucose (mg/dL) (70-110) mg/dL Assessment and Plan Assessment: Acute hypoxic respiratory failure Acute congestive heart failure, new onset. Systolic with ejection fraction 35% elevated troponin. Most likely secondary to her heart disease Possible acute COPD exacerbation. Pulmonary team consulted elevated D-dimer with Low and of intermediate probability of PE. Ultrasound of the leg is negative Acute kidney injury could be cardiorenal syndrome. Currently creatinine stable Acute urinary retention status post Dawson catheter insertion in emergency room. Patient request to remove Dawson catheter Nicotine dependence. Patient counseled and he agrees to the nicotine patch Plan: Continue with Lasix. Monitor creatinine and input and output and electrolytes Currently on Coreg Continue with aspirin Check ultrasound of the lower extremity Follow-up ultrasound of the kidney Nephrology team consult Pulmonary team consult Cardiology team consult Dawson catheter discontinued, keep monitoring bladder scan Labs and medication were reviewed.. Continue same treatment. Continue with symptomatic treatment. Resume home medication. Monitor labs and vitals. DVT and GI prophylaxis. Further recommendations as per clinical course of the patient DVT prophylaxis: Subcutaneous Lovenox GI Prophylaxis: Pepcid PT/OT: Pending Prognosis is guarded
[2024-10-02] MEDS: SODIUM ZIRCONIUM CYCLOSILICATE 10 GM PACKET PO SCH (11:29)
[2024-10-02 11:58] VITALS: BMI 26.3
--- NOTE | 2024-10-02 15:30 | P.PN ---
Subjective Progress Note Date: 10/02/24 Principal diagnosis: Congestive heart failure. This is a very pleasant 59-year-old male patient with a known history of congestive heart failure, diabetes mellitus type 2, COPD, ongoing smoker of 40 years, hypertension, hyperlipidemia, chronic kidney disease who had recently mov ed here from [place]. He presented to the emergency room on September 29, 2024 with complaints of shortness of breath and left-sided chest pain. Chest x-ray was consistent with congestive heart failure. proBNP was 11,300. VQ scan revealed low probability for PE. Echocardiogram reveals impaired left ventricular systolic function with ejection fraction of 30 to 35%. Moderate pulmonary hypertension. He is seen today in consultation on the selective care unit. He is currently sitting up in bed. Awake and alert in no acute distress. Maintaining good O2 saturations in the 90s on 3 L/min per nasal cannula. He states he is breathing better compared to when he first came in. White count 8.6. Hemoglobin 11.4. Platelets 354. Sodium 135. Potassium 6.1. Bicarb 28. BUN 60. Creatinine 1.99. Glucose 125. He was initiated on DuoNeb inhalations, prednisone and IV diuretics. Lovenox for DVT prophylaxis. NicoDerm patch in place. Progress note dated October 02, 2024. The patient is seen today in room 378. He is feeling much better. He was admitted with a diagnosis of shortness of breath, primarily related CHF, but also COPD. He continues on oxygen at 3 L. He is not receiving any IV fluids. Current labs include a white count 7.8, hemoglobin 12.1, hematocrit 39.3, and pl atelet count 281,000. Sodium 132, potassium 5.6, chlorides 103, CO2 24, BUN 64, and creatinine 1.98. Glucose is 205. Calcium is 8.7. Bilateral lower extremity Dopplers, were negative. Objective - Vital Signs Vital signs: Vital Signs Temp 97.4 F L 10/02/24 08:40 Pulse 66 10/02/24 14:00 Resp 18 10/02/24 14:00 BP 149/97 10/02/24 12:00 Pulse Ox 98 10/02/24 12:00 FiO2 Intake & Output 10/01/24 10/02/24 10/02/24 18:59 06:59 18:59 Intake Total 340 237 110 Output Total 1371 850 Balance -1031 -613 110 Weight 77.973 kg 78.5 kg 78.5 kg Intake: Oral 340 237 110 Output: Urine 1000 850 Post Void Residual 371 Other: Voiding Method Urinal Urinal Urinal - Exam No acute distress, oriented 3. Currently on 3 L of oxygen. HEENT examination is grossly unremarkable. Mucous membranes are moist. No oral lesions. Neck supple. Full range of motion. No adenopathy thyromegaly or neck vein distention. Cardiovascular examination reveals regular rhythm rate. S1-S2 normal. No S3 or S4. No discernible murmur noted. Lungs reveal reveal bibasilar crackles. No wheezes or rhonchi. Breath sounds equal. Abdomen soft bowel sounds are heard. No masses or tenderness. Extremities reveal mild lower extremity edema. Skin is without rash or lesion. Neurologic examination is brief but nonfocal. - Labs CBC & Chem 7: 10/02/24 06:43 10/02/24 06:43 Labs: Abnormal Lab Results - Last 24 Hours (Table) 10/02/24 10/02/24 10/02/24 Range/Units 03:15 06:43 06:43 RBC 4.17 L (4.30-5.90) m/uL Hgb 12.1 L (13.0-17.5) gm/dL MCHC 30.7 L (31.0-37.0) g/dL Sodium 132 L (137-145) mmol/L Potassium 5.6 H (3.5-5.1) mmol/L BUN 64 H (9-20) mg/dL Creatinine 1.98 H (0.66-1.25) mg/dL Glucose 205 H (74-99) mg/dL POC Glucose (mg/dL) 198 H (70-110) mg/dL Assessment and Plan Assessment: Acute hypoxemic respiratory failure secondary to an acute exacerbation of chronic systolic congestive heart failure with impaired left ventricular systolic function with an ejection fraction of 30 to 35%. Acute exacerbation of chronic obstructive pulmonary disease. Chronic and ongoing tobacco dependence of 40 years. Acute on chronic kidney disease. Hyperkalemia secondary to above. History of congestive heart failure. Diabetes mellitus, type II. Hypertension. Hyperlipidemia. Plan: Plan dated October 02, 2024. The patient is seen in room 378. He is sitting in the chair next to the hospital bed. He is on 3 L of oxygen. He is feeling better. I mention to him that when he gets out of the hospital, he will have to follow-up in the office, for complete pulmonary function testing. Additional recommendations and suggestions are forthcoming. The patient has been smoking for 40 years and likely has a component of COPD. Labs, x-rays, and all medications are reviewed. Dictation was produced using [employer] dictation software. Please excuse any grammatical, word or spelling errors. Time with Patient: Less than 30
--- NOTE | 2024-10-02 18:17 | P.PN ---
Subjective Patient is seen for follow-up for chronic kidney disease and acute kidney injury. Currently being diuresed. Lasix has been decreased. Renal function stable with creatinine staying at 1.9 mg/dL. 24-hour urine output at 1850 mL. Objective - Vital Signs Vital signs: Vital Signs Temp 97.4 F L 10/02/24 08:40 Pulse 76 10/02/24 16:41 Resp 17 10/02/24 15:50 BP 134/72 10/02/24 15:50 Pulse Ox 98 10/02/24 15:50 FiO2 Intake & Output 10/01/24 10/02/24 10/02/24 18:59 06:59 18:59 Intake Total 340 237 110 Output Total 1371 850 Balance -1031 -613 110 Weight 77.973 kg 78.5 kg 78.5 kg Intake: Oral 340 237 110 Output: Urine 1000 850 Post Void Residual 371 Other: Voiding Method Urinal Urinal Urinal - Exam patient is awake, comfortable, no acute distress. 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 Acute kidney injury nonoliguric, mostly cardiorenal, currently being diuresed. Component of urine retention noted with indwelling Dawson catheter currently. UA shows 3+ protein small blood. Ultrasound of the kidneys does not show any evidence of obstructive uropathy. 2. Chronic kidney disease stage III a with previous creatinine 1.26 in March 2024 3. Hypertension with CK D stage III 4. History of CHF, EF not known 5. Hyperkalemia associated with urine retention and acute kidney injury. Blood sugar is not elevated. No evidence of GI bleed. 6. Acute hypoxic respiratory failure 7. Right renal calculus 0.7 cm, nonobstructive Plan: continue with indwelling Dawson catheter Maintain low potassium diet Patient is advised to avoid further use of NSAIDs Continue Lokelma Continue with Lasix
[2024-10-02 18:24] LABS: Glucose,Whole Blood 252 mg/dL (70-110)
[2024-10-02 20:09] LABS: Glucose,Whole Blood 211 mg/dL (70-110)
[2024-10-02] MEDS: INSULIN ASPART (NovoLOG) 100 UNIT/ML VIAL SQ SCH (20:34)
--- NOTE | 2024-10-02 20:34 | P.PN ---
Subjective Patient is resting comfortably in bed. Denies any chest discomfort. Feels his breathing is a lot better He was admitted for new onset cardiomyopathy with reduced LV systolic function with shortness of breath He has hypertension He was treated with IV Lasix and then switched to p.o. Lasix The dose of carvedilol was increased to 12.5 mg twice daily since he has chronic kidney disease with acute injury and hyperkalemia and therefore is not on ERICK inhibitors angiotensin receptor blockers Entresto or spironolactone at this time Sodium 132 potassium 5.6 BUN 64 creatinine 1.98 Hemoglobin 12 Blood pressure 134/72 mmHg pulse rate in the 70s Heart sounds S1-S2 are soft Lungs reduced breath sound bilaterally Impression Acute on chronic kidney disease with hyperkalemia Cardiomyopathy with congestive heart failure Plan Continue aspirin, continue atorvastatin Continue carvedilol 12.5 mg twice daily Continue p.o. Lasix Objective - Vital Signs Vital signs: Vital Signs Temp 97.4 F L 10/02/24 08:40 Pulse 76 10/02/24 16:41 Resp 17 10/02/24 15:50 BP 134/72 10/02/24 15:50 Pulse Ox 98 10/02/24 15:50 FiO2 Intake & Output 10/02/24 10/02/24 10/03/24 06:59 18:59 06:59 Intake Total 237 110 Output Total 850 Balance -613 110 Weight 78.5 kg 78.5 kg Intake: Oral 237 110 Output: Urine 850 Other: Voiding Method Urinal Urinal - Labs CBC & Chem 7: 10/02/24 06:43 10/02/24 06:43 Labs: Abnormal Lab Results - Last 24 Hours (Table) 10/02/24 10/02/24 10/02/24 Range/Units 03:15 06:43 06:43 RBC 4.17 L (4.30-5.90) m/uL Hgb 12.1 L (13.0-17.5) gm/dL MCHC 30.7 L (31.0-37.0) g/dL Sodium 132 L (137-145) mmol/L Potassium 5.6 H (3.5-5.1) mmol/L BUN 64 H (9-20) mg/dL Creatinine 1.98 H (0.66-1.25) mg/dL Glucose 205 H (74-99) mg/dL POC Glucose (mg/dL) 198 H (70-110) mg/dL 10/02/24 10/02/24 Range/Units 18:22 20:07 RBC (4.30-5.90) m/uL Hgb (13.0-17.5) gm/dL MCHC (31.0-37.0) g/dL Sodium (137-145) mmol/L Potassium (3.5-5.1) mmol/L BUN (9-20) mg/dL Creatinine (0.66-1.25) mg/dL Glucose (74-99) mg/dL POC Glucose (mg/dL) 252 H 211 H (70-110) mg/dL
[2024-10-03 06:19] LABS: Glucose,Whole Blood 210 mg/dL (70-110)
[2024-10-03 06:54] LABS: African American GFR (CKD) 43 (>60 ml/min/1.73 sqM); Anion Gap 7 mmol/L; Blood Urea Nitrogen 66 mg/dL (9-20); Calcium 8.9 mg/dL (8.4-10.2); Carbon Dioxide 31 mmol/L (22-30); Chloride 98 mmol/L (98-107); Glucose 194 mg/dL (74-99); Non-African American GFR(CKD) 37 (>60 ml/min/1.73 sqM); Potassium 5.2 mmol/L (3.5-5.1); Sodium 136 mmol/L (137-145)
--- NOTE | 2024-10-03 08:51 | P.PN ---
Subjective Progress Note Date: 10/03/24 Principal diagnosis: Congestive heart failure. This is a very pleasant 59-year-old male patient with a known history of congestive heart failure, diabetes mellitus type 2, COPD, ongoing smoker of 40 years, hypertension, hyperlipidemia, chronic kidney disease who had recently mov ed here from [place]. He presented to the emergency room on September 29, 2024 with complaints of shortness of breath and left-sided chest pain. Chest x-ray was consistent with congestive heart failure. proBNP was 11,300. VQ scan revealed low probability for PE. Echocardiogram reveals impaired left ventricular systolic function with ejection fraction of 30 to 35%. Moderate pulmonary hypertension. He is seen today in consultation on the selective care unit. He is currently sitting up in bed. Awake and alert in no acute distress. Maintaining good O2 saturations in the 90s on 3 L/min per nasal cannula. He states he is breathing better compared to when he first came in. White count 8.6. Hemoglobin 11.4. Platelets 354. Sodium 135. Potassium 6.1. Bicarb 28. BUN 60. Creatinine 1.99. Glucose 125. He was initiated on DuoNeb inhalations, prednisone and IV diuretics. Lovenox for DVT prophylaxis. NicoDerm patch in place. Progress note dated October 02, 2024. The patient is seen today in room 378. He is feeling much better. He was admitted with a diagnosis of shortness of breath, primarily related CHF, but also COPD. He continues on oxygen at 3 L. He is not receiving any IV fluids. Current labs include a white count 7.8, hemoglobin 12.1, hematocrit 39.3, and pl atelet count 281,000. Sodium 132, potassium 5.6, chlorides 103, CO2 24, BUN 64, and creatinine 1.98. Glucose is 205. Calcium is 8.7. Bilateral lower extremity Dopplers, were negative. Progress note dated October 03, 2024. 59-year-old male admitted with a diagnosis of congestive heart failure. The patient likely also has some underlying COPD. He did smoke heavily for 40 years. The patient is seen today in room 378. He continues on oxygen, 2 L. Saturations are 98%. The patient is not receiving any IV fluids. Current labs include a sodium 136, potassium 5.2, chlorides 98, CO2 31, anion gap 7, BUN 66, creatinine 1.91. Glucose is 210. Calcium is 8.9. Objective - Vital Signs Vital signs: Vital Signs Temp 97.5 F L 10/03/24 07:43 Pulse 74 10/03/24 08:38 Resp 14 10/03/24 07:43 BP 115/72 10/03/24 07:43 Pulse Ox 99 10/03/24 08:27 FiO2 Intake & Output 10/02/24 10/03/24 10/03/24 18:59 06:59 18:59 Intake Total 110 Balance 110 Weight 78.5 kg 79.6 kg Intake: Oral 110 Other: Voiding Method Urinal Urinal - Exam No acute distress, oriented 3. Currently on 3 L of oxygen. HEENT examination is grossly unremarkable. Mucous membranes are moist. No oral lesions. Neck supple. Full range of motion. No adenopathy thyromegaly or neck vein distention. Cardiovascular examination reveals regular rhythm rate. S1-S2 normal. No S3 or S4. No discernible murmur noted. Lungs reveal reveal bibasilar crackles. No wheezes or rhonchi. Breath sounds equal. Abdomen soft bowel sounds are heard. No masses or tenderness. Extremities reveal mild lower extremity edema. Skin is without rash or lesion. Neurologic examination is brief but nonfocal. - Labs CBC & Chem 7: 10/02/24 06:43 10/03/24 05:44 Labs: Abnormal Lab Results - Last 24 Hours (Table) 10/02/24 10/02/24 10/03/24 Range/Units 18:22 20:07 05:44 Sodium 136 L (137-145) mmol/L Potassium 5.2 H (3.5-5.1) mmol/L Carbon Dioxide 31 H (22-30) mmol/L BUN 66 H (9-20) mg/dL Creatinine 1.91 H (0.66-1.25) mg/dL Glucose 194 H (74-99) mg/dL POC Glucose (mg/dL) 252 H 211 H (70-110) mg/dL 10/03/24 Range/Units 06:18 Sodium (137-145) mmol/L Potassium (3.5-5.1) mmol/L Carbon Dioxide (22-30) mmol/L BUN (9-20) mg/dL Creatinine (0.66-1.25) mg/dL Glucose (74-99) mg/dL POC Glucose (mg/dL) 210 H (70-110) mg/dL Assessment and Plan Assessment: Acute hypoxemic respiratory failure secondary to an acute exacerbation of chronic systolic congestive heart failure with impaired left ventricular systolic function with an ejection fraction of 30 to 35%. Acute exacerbation of chronic obstructive pulmonary disease. Chronic and ongoing tobacco dependence of 40 years. Acute on chronic kidney disease. Hyperkalemia secondary to above. History of congestive heart failure. Diabetes mellitus, type II. Hypertension. Hyperlipidemia. Plan: Plan dated October 02, 2024. The patient is seen in room 378. He is sitting in the chair next to the hospital bed. He is on 3 L of oxygen. He is feeling better. I mention to him that when he gets out of the hospital, he will have to follow-up in the office, for complete pulmonary function testing. Additional recommendations and suggestions are forthcoming. The patient has been smoking for 40 years and likely has a component of COPD. Labs, x-rays, and all medications are reviewed. Dictation was produced using [employer] dictation software. Please excuse any grammatical, word or spelling errors. Plan dated October 03, 2024. The patient continues on oxygen, at 3 L. Clinically, he is much improved. Labs, x-rays, and all medications are reviewed. We will continue to follow the patient, make recommendations along the way. The patient will need follow-up in the pulmonary office, for complete pulmonary function testing, to better characterize the lung portion of his chronic disease. Labs, x-rays, and medications are reviewed. The patient is stable. He might be considered for possible discharge in the next day or so. The patient is counseled about the importance of smoking cessation. Time with Patient: Less than 30
[2024-10-03 11:26] LABS: Glucose,Whole Blood 185 mg/dL (70-110)
[2024-10-03] MEDS: SODIUM ZIRCONIUM CYCLOSILICATE 10 GM PACKET PO ONE (12:17)
--- NOTE | 2024-10-03 12:50 | P.PN ---
Subjective Progress Note Date: 10/03/24 59 years old male with no significant past medical history. Who does not follow-up with PCP. Presents because of feeling short of breath for the last 6 days. Patient also reports having some chest pain when he came into the hospital, as per patient is gone now and rated as 0/10. He has been having some cough and green phlegm for the last 5 days He smokes 1 pack/day and he were counseled to quit and he agrees and he wants nicotine patch but no alcohol or illicit drugs He has mild headache. He has some wobbly walking because of his knee replacement. But no new weakness No specific GI/ symptom On admission he stated Clinic with a heart rate of breathing is 20-22. He was saturating 94% on 4 L oxygen via nasal cannula. Labs reviewed. He WBC is mildly up at 11,000. Rest of CBC is unremarkable Creatinine 1.8. Liver enzymes are unremarkable. INR 1.1 Troponin is elevated at 0.04 proBNP is elevated 11 300 Chest x-ray showing cardiomegaly with pulmonary vascular congestion and bilateral pleural effusion. With some atelectasis, pneumonia felt less likely Pro- Calcitonin is pending EKG showing sinus tachycardia at 100% with no significant ST-T changes Patient received aspirin in the emergency room at 325 mg and started on Lasix. 09/30 Patient is still tachypneic and dyspneic. Also patient reports improvement in his breathing He denies chest pain. No significant coughing. Still with bilateral pitting leg edema more on the left side. He has evidence of urinary retention with bladder scan 421. Dawson catheter was inserted. We will add Flomax. He made good urine output overnight. Repeat potassium was 5.9. Creatinine 1.8. Monitor labs later on today. Echocardiogram is pending 10/01 Patient sitting up in bed He feels his breathing is little better but not significantly improved. He still slightly tachypneic and wheezing This morning his Dawson catheter was bothering him and he wanted to be taken out. Dawson catheter was removed and will keep checking his bladder scan He is on normal saline 75 mL/h D-dimer was elevated at three 1.49 Pulmonary perfusion scan showing low of intermediate probability of PE We will check leg ultrasound We will consult pulmonary service for shortness of breath Start prednisone 50 mg for his wheezing 10/02 Patient feels better, his breathing is better and less wheezing No leg pain and he is walking fine. Ultrasound of the leg is negative for DVT. Patient urinating with no difficulty. He requested Dawson catheter to be removed Renal ultrasound for kidney disease:No evidence of obstructive uropathy and there is right nonobstructive urinary calculus He is currently on Lasix 40 mg daily Getting 10 gmof Lokelma x 4 doses. Potassium better today at 5.6 Creatinine stable at 1.9 Ejection fraction is 30 to 35% per echocardiogram Patient counseled about the importance of outpatient follow-up and need to find a new PCP within a week after discharge and he agrees 10/03 -patient seen and evaluated at bedside, patient does complain of exertional shortness of breath remains on 4 L of oxygen, patient given Lokelma for potassium of 5.2, creatinine 1.91 GENERAL: The patient is alert and oriented x3, ill appearance, nasal cannula in place HEENT: Pupils are round and equally reacting to light. EOMI Normocephalic, atraumatic. CARDIOVASCULAR: S1 and S2 present. No murmurs, rubs, or gallops. PULMONARY: Decreased breath sounds, bilateral rhonchi ABDOMEN: Soft, nontender, nondistended, normoactive bowel sounds. No palpable organomegaly. MUSCULOSKELETAL: No joint swelling or deformity. EXTREMITIES: bilateral pitting leg edema. NEUROLOGICAL: Gross neurological examination did not reveal any focal deficits. Objective - Vital Signs Vital signs: Vital Signs Temp 97.5 F L 10/03/24 07:43 Pulse 74 10/03/24 08:38 Resp 14 10/03/24 07:43 BP 115/72 10/03/24 07:43 Pulse Ox 99 10/03/24 08:27 FiO2 Intake & Output 10/02/24 10/03/24 10/03/24 18:59 06:59 18:59 Intake Total 110 240 Balance 110 240 Weight 78.5 kg 79.6 kg Intake: Oral 110 240 Other: Voiding Method Urinal Urinal - Labs CBC & Chem 7: 10/02/24 06:43 10/03/24 05:44 Labs: Abnormal Lab Results - Last 24 Hours (Table) 10/02/24 10/02/24 10/03/24 Range/Units 18:22 20:07 05:44 Sodium 136 L (137-145) mmol/L Potassium 5.2 H (3.5-5.1) mmol/L Carbon Dioxide 31 H (22-30) mmol/L BUN 66 H (9-20) mg/dL Creatinine 1.91 H (0.66-1.25) mg/dL Glucose 194 H (74-99) mg/dL POC Glucose (mg/dL) 252 H 211 H (70-110) mg/dL 12/ Range/Units 06:18 Sodium (137-145) mmol/L Potassium (3.5-5.1) mmol/L Carbon Dioxide (22-30) mmol/L BUN (9-20) mg/dL Creatinine (0.66-1.25) mg/dL Glucose (74-99) mg/dL POC Glucose (mg/dL) 210 H (70-110) mg/dL Assessment and Plan Assessment: Acute hypoxic respiratory failure secondary to congestive heart failure Acute congestive heart failure, new onset. Systolic with ejection fraction 35% Acute exacerbation of COPD acute renal failure on chronic kidney disease urinary retention requiring Dawson catheter diabetes mellitus type 2 hyperkalemia secondary to CKD, CORBY elevated troponin secondary to type II [place] elevated D-dimer with Low and of intermediate probability of PE. Ultrasound of the leg is negative Acute urinary retention status post Dawson catheter insertion in emergency room. Patient request to remove Dawson catheter Nicotine dependence. Patient counseled and he agrees to the nicotine patch Plan: * consultation obtained from pulmonary medicine, cardiology, nephrology * in regards to hypoxic respiratory failure patient on 4 L of oxygen, continue Lasix, monitor intake and output * in regards to COPD exacerbation, continue prednisone, continue DuoNeb breathing treatment * in regards to hyperkalemia Lokelma ordered, will follow-up on potassium levels * in regards to urinary retention continue Flomax monitor output * venous ultrasound lower extremity negative for DVT, VQ scan negative low suspicion for PE * Dawson catheter discontinued, keep monitoring bladder scan * Labs and medication were reviewed * DVT prophylaxis: Subcutaneous Lovenox * GI Prophylaxis: Pepcid * PT/OT: Pending Time with Patient: Greater than 30
--- NOTE | 2024-10-03 12:54 | P.PN ---
Subjective Patient is seen for follow-up for chronic kidney disease and acute kidney injury. Currently being diuresed. Lasix has been decreased. Renal function stable with creatinine staying at 1.9 mg/dL. 24-hour urine output at 1850 mL. Objective - Vital Signs Vital signs: Vital Signs Temp 97.5 F L 10/03/24 07:43 Pulse 76 10/03/24 12:08 Resp 14 10/03/24 11:43 BP 128/83 10/03/24 11:43 Pulse Ox 100 10/03/24 11:43 FiO2 Intake & Output 10/02/24 10/03/24 10/03/24 18:59 06:59 18:59 Intake Total 110 240 Balance 110 240 Weight 78.5 kg 79.6 kg Intake: Oral 110 240 Other: Voiding Method Urinal Urinal Urinal - Exam Patient is awake, comfortable, no acute distress. 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 intact - Labs CBC & Chem 7: 10/02/24 06:43 10/03/24 05:44 Labs: Abnormal Lab Results - Last 24 Hours (Table) 10/02/24 10/02/24 10/03/24 Range/Units 18:22 20:07 05:44 Sodium 136 L (137-145) mmol/L Potassium 5.2 H (3.5-5.1) mmol/L Carbon Dioxide 31 H (22-30) mmol/L BUN 66 H (9-20) mg/dL Creatinine 1.91 H (0.66-1.25) mg/dL Glucose 194 H (74-99) mg/dL POC Glucose (mg/dL) 252 H 211 H (70-110) mg/dL 10/03/24 10/03/24 Range/Units 06:18 11:24 Sodium (137-145) mmol/L Potassium (3.5-5.1) mmol/L Carbon Dioxide (22-30) mmol/L BUN (9-20) mg/dL Creatinine (0.66-1.25) mg/dL Glucose (74-99) mg/dL POC Glucose (mg/dL) 210 H 185 H (70-110) mg/dL Assessment and Plan Assessment: 1. Acute kidney injury nonoliguric, mostly cardiorenal, currently being diuresed. Component of urine retention noted with indwelling Mcgowan catheter currently. UA shows 3+ protein small blood. Ultrasound of the kidneys does not show any evidence of obstructive uropathy. 2. Chronic kidney disease stage III a with previous creatinine 1.26 in March 2024 3. Hypertension with CK D stage III 4. History of CHF, EF not known 5. Hyperkalemia associated with urine retention and acute kidney injury. Blood sugar is not elevated. No evidence of GI bleed. 6. Acute hypoxic respiratory failure 7. Right renal calculus 0.7 cm, nonobstructive Plan: check post void residual to rule out urine retention as mcgowan catheter has been removed Maintain low potassium diet Patient is advised to avoid further use of NSAIDs Continue with Lasix
--- NOTE | 2024-10-03 13:08 | P.PN ---
Subjective Progress Note Date: 10/03/24 This is Rodrigue Gilliam NP, I'm dictating on behalf of Dr. Salazar's H&P and A&P. Patient was interviewed and examined. Patient is a pleasant 59-year-old male who presented to the hospital with acute pulmonary edema, hypertension. Patient reports he is doing okay today. Patient reports that his breathing is still not good, but overall his vitals have improved significantly. Patient's blood pressure and heart rate are within normal limits and much better than arrival. The majority the patient's comp laints today seem to be secondary to his severe COPD. GENERAL: Well-appearing, well-nourished and in no acute distress. NECK: Supple without JVD or thyromegaly. LUNGS: Breath sounds diminished but clear to auscultation bilaterally. Respiration equal and unlabored. No wheezes, rales or rhonchi. HEART: Regular rate and rhythm without murmurs, rubs or gallops. S1 and S2 heard. EXTREMITIES: Normal range of motion, no edema. No clubbing or cyanosis. Peripheral pulses intact and strong. VITALS: Temp 97.5, pulse 68, blood pressure 115/72, O2 saturation 99% on 2 L TELEMETRY: Sinus mechanism LABS: Sodium 136, potassium 5.2, BUN 66, creatinine 1.91, calcium 8.9 IMPRESSION: 1. Acute on chronic kidney disease with hyperkalemia 2. Cardiomyopathy with congestive heart failure PLAN: Patient should continue aspirin 81 mg daily, carvedilol 12.5 mg twice daily, furosemide 40 mg daily. Patient may be discharged from a cardiology standpoint. Patient should follow-up with Dr. Salazar in 3 weeks. Objective - Vital Signs Vital signs: Vital Signs Temp 97.5 F L 10/03/24 07:43 Pulse 76 10/03/24 12:08 Resp 14 10/03/24 11:43 BP 128/83 10/03/24 11:43 Pulse Ox 100 10/03/24 11:43 FiO2 Intake & Output 10/02/24 10/03/24 10/03/24 18:59 06:59 18:59 Intake Total 110 240 Balance 110 240 Weight 78.5 kg 79.6 kg Intake: Oral 110 240 Other: Voiding Method Urinal Urinal Urinal - Labs CBC & Chem 7: 10/02/24 06:43 10/03/24 05:44 Labs: Abnormal Lab Results - Last 24 Hours (Table) 10/02/24 10/02/24 10/03/24 Range/Units 18:22 20:07 05:44 Sodium 136 L (137-145) mmol/L Potassium 5.2 H (3.5-5.1) mmol/L Carbon Dioxide 31 H (22-30) mmol/L BUN 66 H (9-20) mg/dL Creatinine 1.91 H (0.66-1.25) mg/dL Glucose 194 H (74-99) mg/dL POC Glucose (mg/dL) 252 H 211 H (70-110) mg/dL 10/03/24 10/03/24 Range/Units 06:18 11:24 Sodium (137-145) mmol/L Potassium (3.5-5.1) mmol/L Carbon Dioxide (22-30) mmol/L BUN (9-20) mg/dL Creatinine (0.66-1.25) mg/dL Glucose (74-99) mg/dL POC Glucose (mg/dL) 210 H 185 H (70-110) mg/dL
--- NOTE | 2024-10-03 14:07 | XR ---
EXAMINATION TYPE: XR chest 1V DATE OF EXAM: 10/03/2024 1:34 PM COMPARISON: Previous chest radiograph 09/29/2024. CLINICAL INDICATION: Male, 59 years old with history of chf; [facility] TECHNIQUE: XR chest 1V Frontal view of the chest. FINDINGS: Cardiomegaly. Low lung volumes. Increasing small bilateral pleural effusions with adjacent lower lobe consolidative opacities. There is additional right mid/lung base atelectasis, also increasing from prior study. No pneumothorax. No acute osseous abnormality. IMPRESSION: Slightly worsening aeration of the chest compared to recent study dated 09/29/2024 as described above . [facility], , 10/03/2024 2:05 PM
[2024-10-03 16:32] LABS: Glucose,Whole Blood 341 mg/dL (70-110)
[2024-10-03 20:25] LABS: Glucose,Whole Blood 171 mg/dL (70-110)
[2024-10-04 05:36] LABS: Glucose,Whole Blood 258 mg/dL (70-110)
[2024-10-04 07:02] LABS: HCT 39.4 % (39.0-53.0); HGB 12.2 gm/dL (13.0-17.5); Hypochromasia Slight; MCH 29.3 pg (25.0-35.0); MCV 94.4 fL (80.0-100.0); Mean Platelet Volume 8.7; Platelet Count 296 k/uL (150-450); RBC 4.17 m/uL (4.30-5.90); RDW 14.6 % (11.5-15.5); WBC 9.3 k/uL (3.8-10.6)
[2024-10-04 07:14] LABS: African American GFR (CKD) 51 (>60 ml/min/1.73 sqM); Anion Gap 6 mmol/L; Blood Urea Nitrogen 71 mg/dL (9-20); Calcium 8.7 mg/dL (8.4-10.2); Carbon Dioxide 28 mmol/L (22-30); Chloride 101 mmol/L (98-107); Glucose 220 mg/dL (74-99); Non-African American GFR(CKD) 44 (>60 ml/min/1.73 sqM); Potassium 5.3 mmol/L (3.5-5.1); Sodium 135 mmol/L (137-145)
[2024-10-04] MEDS: SODIUM ZIRCONIUM CYCLOSILICATE 10 GM PACKET PO SCH (10:06)
[2024-10-04 11:28] LABS: Glucose,Whole Blood 116 mg/dL (70-110)
--- NOTE | 2024-10-04 12:05 | P.PN ---
Subjective Progress Note Date: 10/04/24 59 years old male with no significant past medical history. Who does not follow-up with PCP. Presents because of feeling short of breath for the last 6 days. Patient also reports having some chest pain when he came into the hospital, as per patient is gone now and rated as 0/10. He has been having some cough and green phlegm for the last 5 days He smokes 1 pack/day and he were counseled to quit and he agrees and he wants nicotine patch but no alcohol or illicit drugs He has mild headache. He has some wobbly walking because of his knee replacement. But no new weakness No specific GI/ symptom On admission he stated Clinic with a heart rate of breathing is 20-22. He was saturating 94% on 4 L oxygen via nasal cannula. Labs reviewed. He WBC is mildly up at 11,000. Rest of CBC is unremarkable Creatinine 1.8. Liver enzymes are unremarkable. INR 1.1 Troponin is elevated at 0.04 proBNP is elevated 11 300 Chest x-ray showing cardiomegaly with pulmonary vascular congestion and bilateral pleural effusion. With some atelectasis, pneumonia felt less likely Pro- Calcitonin is pending EKG showing sinus tachycardia at 100% with no significant ST-T changes Patient received aspirin in the emergency room at 325 mg and started on Lasix. 09/30 Patient is still tachypneic and dyspneic. Also patient reports improvement in his breathing He denies chest pain. No significant coughing. Still with bilateral pitting leg edema more on the left side. He has evidence of urinary retention with bladder scan 421. Dawson catheter was inserted. We will add Flomax. He made good urine output overnight. Repeat potassium was 5.9. Creatinine 1.8. Monitor labs later on today. Echocardiogram is pending 10/01 Patient sitting up in bed He feels his breathing is little better but not significantly improved. He still slightly tachypneic and wheezing This morning his Dawson catheter was bothering him and he wanted to be taken out. Dawson catheter was removed and will keep checking his bladder scan He is on normal saline 75 mL/h D-dimer was elevated at three 1.49 Pulmonary perfusion scan showing low of intermediate probability of PE We will check leg ultrasound We will consult pulmonary service for shortness of breath Start prednisone 50 mg for his wheezing 10/02 Patient feels better, his breathing is better and less wheezing No leg pain and he is walking fine. Ultrasound of the leg is negative for DVT. Patient urinating with no difficulty. He requested Dawson catheter to be removed Renal ultrasound for kidney disease:No evidence of obstructive uropathy and there is right nonobstructive urinary calculus He is currently on Lasix 40 mg daily Getting 10 gmof Lokelma x 4 doses. Potassium better today at 5.6 Creatinine stable at 1.9 Ejection fraction is 30 to 35% per echocardiogram Patient counseled about the importance of outpatient follow-up and need to find a new PCP within a week after discharge and he agrees 10/03 -patient seen and evaluated at bedside, patient does complain of exertional shortness of breath remains on 4 L of oxygen, patient given Lokelma for potassium of 5.2, creatinine 1.91 10/04- patient seen and evaluated bedside on evaluation patient is awake and alert does have exertional shortness of breath, continue to remain on 2 L of oxygen blood work reviewed potassium of 5.3, Lokelma scheduled, we will follow- up on basic metabolic panel potassium of 5.3, Lokelma given. Patient does complain of shortness of breath on exertion does not feel he is ready for discharge GENERAL: The patient is alert and oriented x3, ill appearance, nasal cannula in place HEENT: Pupils are round and equally reacting to light. EOMI Normocephalic, atraumatic. CARDIOVASCULAR: S1 and S2 present. No murmurs, rubs, or gallops. PULMONARY: Decreased breath sounds, bilateral rhonchi ABDOMEN: Soft, nontender, nondistended, normoactive bowel sounds. No palpable organomegaly. MUSCULOSKELETAL: No joint swelling or deformity. EXTREMITIES: bilateral pitting leg edema. NEUROLOGICAL: Gross neurological examination did not reveal any focal deficits. Objective - Vital Signs Vital signs: Vital Signs Temp 98 F 10/04/24 07:42 Pulse 72 10/04/24 08:51 Resp 16 10/04/24 07:42 BP 129/80 10/04/24 07:42 Pulse Ox 99 10/04/24 07:42 FiO2 Intake & Output 10/03/24 10/04/24 10/04/24 18:59 06:59 18:59 Intake Total 460 Output Total 575 Balance 460 -575 Weight 80.3 kg Intake: Oral 460 Output: Urine 575 Other: Voiding Method Urinal Urinal # Voids 2 - Labs CBC & Chem 7: 10/04/24 06:14 10/04/24 06:14 Labs: Abnormal Lab Results - Last 24 Hours (Table) 10/03/24 10/03/24 10/03/24 Range/Units 11:24 16:30 20:24 RBC (4.30-5.90) m/uL Hgb (13.0-17.5) gm/dL Sodium (137-145) mmol/L Potassium (3.5-5.1) mmol/L BUN (9-20) mg/dL Creatinine (0.66-1.25) mg/dL Glucose (74-99) mg/dL POC Glucose (mg/dL) 185 H 341 H 171 H (70-110) mg/dL 10/04/24 10/04/24 10/04/24 Range/Units 05:33 06:14 06:14 RBC 4.17 L (4.30-5.90) m/uL Hgb 12.2 L (13.0-17.5) gm/dL Sodium 135 L (137-145) mmol/L Potassium 5.3 H (3.5-5.1) mmol/L BUN 71 H (9-20) mg/dL Creatinine 1.65 H (0.66-1.25) mg/dL Glucose 220 H (74-99) mg/dL POC Glucose (mg/dL) 258 H (70-110) mg/dL Assessment and Plan Assessment: Acute hypoxic respiratory failure secondary to congestive heart failure Acute congestive heart failure, new onset. Systolic with ejection fraction 35% Acute exacerbation of COPD acute renal failure on chronic kidney disease, recurrent hyperkalemia urinary retention requiring Dawson catheter diabetes mellitus type 2 hyperkalemia secondary to CKD, CORBY elevated troponin secondary to type II NV elevated D-dimer with Low and of intermediate probability of PE. Ultrasound of the leg is negative Acute urinary retention status post Dawson catheter insertion in emergency room. Patient request to remove Dawson catheter Nicotine dependence. Patient counseled and he agrees to the nicotine patch Plan: * consultation obtained from pulmonary medicine, cardiology, nephrology * in regards to hypoxic respiratory failure patient on 2 L of oxygen, continue Lasix, monitor intake and output, will need oxygen for discharge * in regards to COPD exacerbation, continue prednisone, continue DuoNeb breathing treatment * in regards to hyperkalemia Lokelma ordered for 3 doses, will follow-up on potassium levels * in regards to urinary retention continue Flomax monitor output * venous ultrasound lower extremity negative for DVT, VQ scan negative low suspicion for PE * Dawson catheter discontinued, keep monitoring bladder scan * Labs and medication were reviewed * DVT prophylaxis: Subcutaneous Lovenox * GI Prophylaxis: Pepcid * PT/OT: to be determined Time with Patient: Greater than 30
--- NOTE | 2024-10-04 12:11 | P.PN ---
Subjective Progress Note Date: 10/04/24 Principal diagnosis: Congestive heart failure. This is a very pleasant 59-year-old male patient with a known history of congestive heart failure, diabetes mellitus type 2, COPD, ongoing smoker of 40 years, hypertension, hyperlipidemia, chronic kidney disease who had recently mov ed here from [place]. He presented to the emergency room on September 29, 2024 with complaints of shortness of breath and left-sided chest pain. Chest x-ray was consistent with congestive heart failure. proBNP was 11,300. VQ scan revealed low probability for PE. Echocardiogram reveals impaired left ventricular systolic function with ejection fraction of 30 to 35%. Moderate pulmonary hypertension. He is seen today in consultation on the selective care unit. He is currently sitting up in bed. Awake and alert in no acute distress. Maintaining good O2 saturations in the 90s on 3 L/min per nasal cannula. He states he is breathing better compared to when he first came in. White count 8.6. Hemoglobin 11.4. Platelets 354. Sodium 135. Potassium 6.1. Bicarb 28. BUN 60. Creatinine 1.99. Glucose 125. He was initiated on DuoNeb inhalations, prednisone and IV diuretics. Lovenox for DVT prophylaxis. NicoDerm patch in place. Progress note dated October 02, 2024. The patient is seen today in room 378. He is feeling much better. He was admitted with a diagnosis of shortness of breath, primarily related CHF, but also COPD. He continues on oxygen at 3 L. He is not receiving any IV fluids. Current labs include a white count 7.8, hemoglobin 12.1, hematocrit 39.3, and pl atelet count 281,000. Sodium 132, potassium 5.6, chlorides 103, CO2 24, BUN 64, and creatinine 1.98. Glucose is 205. Calcium is 8.7. Bilateral lower extremity Dopplers, were negative. Progress note dated October 03, 2024. 59-year-old male admitted with a diagnosis of congestive heart failure. The patient likely also has some underlying COPD. He did smoke heavily for 40 years. The patient is seen today in room 378. He continues on oxygen, 2 L. Saturations are 98%. The patient is not receiving any IV fluids. Current labs include a sodium 136, potassium 5.2, chlorides 98, CO2 31, anion gap 7, BUN 66, creatinine 1.91. Glucose is 210. Calcium is 8.9. Progress note dated October 04, 2024. 59-year-old male admitted with a diagnosis of congestive heart failure, but also, with likely underlying COPD. The patient is seen today in room 378. He is sitting in bed, in no distress. He is on 2 L of oxygen. Saturations are 99%. He is not receiving any IV fluids. Current labs include a white count 9.3, hemoglobin 12.2, hematocrit 39.4, and platelet count 296,000. Sodium 135, potassium 5.3, chlorides 101, CO2 28, BUN 71, creatinine 1.65. Glucose is 116. Calcium 8.7. Chest x-ray reveals some cardiomegaly, and some bibasilar atelectasis, and/or infiltrates. There may be small bilateral effusions as well. Objective - Vital Signs Vital signs: Vital Signs Temp 98 F 10/04/24 07:42 Pulse 76 10/04/24 12:00 Resp 16 10/04/24 11:40 BP 133/77 10/04/24 11:40 Pulse Ox 98 10/04/24 11:40 FiO2 Intake & Output 10/03/24 10/04/24 10/04/24 18:59 06:59 18:59 Intake Total 460 120 Output Total 575 375 Balance 460 -575 -255 Weight 80.3 kg Intake: Oral 460 120 Output: Urine 575 375 Other: Voiding Method Urinal Urinal Urinal # Voids 2 - Exam No acute distress, oriented 3. Currently on 2 L of oxygen. HEENT examination is grossly unremarkable. Mucous membranes are moist. No oral lesions. Neck supple. Full range of motion. No adenopathy thyromegaly or neck vein distention. Cardiovascular examination reveals regular rhythm rate. S1-S2 normal. No S3 or S4. No discernible murmur noted. Lungs reveal reveal bibasilar crackles. No wheezes or rhonchi. Breath sounds equal. Abdomen soft bowel sounds are heard. No masses or tenderness. Extremities reveal mild lower extremity edema. Skin is without rash or lesion. Neurologic examination is brief but nonfocal. - Labs CBC & Chem 7: 10/04/24 06:14 10/04/24 06:14 Labs: Abnormal Lab Results - Last 24 Hours (Table) 10/03/24 10/03/24 10/04/24 Range/Units 16:30 20:24 05:33 RBC (4.30-5.90) m/uL Hgb (13.0-17.5) gm/dL Sodium (137-145) mmol/L Potassium (3.5-5.1) mmol/L BUN (9-20) mg/dL Creatinine (0.66-1.25) mg/dL Glucose (74-99) mg/dL POC Glucose (mg/dL) 341 H 171 H 258 H (70-110) mg/dL 10/04/24 10/04/24 10/04/24 Range/Units 06:14 06:14 11:26 RBC 4.17 L (4.30-5.90) m/uL Hgb 12.2 L (13.0-17.5) gm/dL Sodium 135 L (137-145) mmol/L Potassium 5.3 H (3.5-5.1) mmol/L BUN 71 H (9-20) mg/dL Creatinine 1.65 H (0.66-1.25) mg/dL Glucose 220 H (74-99) mg/dL POC Glucose (mg/dL) 116 H (70-110) mg/dL Assessment and Plan Assessment: Acute hypoxemic respiratory failure secondary to an acute exacerbation of chronic systolic congestive heart failure with impaired left ventricular systolic function with an ejection fraction of 30 to 35%. Acute exacerbation of chronic obstructive pulmonary disease. Chronic and ongoing tobacco dependence of 40 years. Acute on chronic kidney disease. Hyperkalemia secondary to above. History of congestive heart failure. Diabetes mellitus, type II. Hypertension. Hyperlipidemia. Plan: Plan dated October 02, 2024. The patient is seen in room 378. He is sitting in the chair next to the hospital bed. He is on 3 L of oxygen. He is feeling better. I mention to him that when he gets out of the hospital, he will have to follow-up in the office, for complete pulmonary function testing. Additional recommendations and suggestions are forthcoming. The patient has been smoking for 40 years and likely has a component of COPD. Labs, x-rays, and all medications are reviewed. Dictation was produced using [employer] software. Please excuse any grammatical, word or spelling errors. Plan dated October 03, 2024. The patient continues on oxygen, at 3 L. Clinically, he is much improved. Lab s, x-rays, and all medications are reviewed. We will continue to follow the patient, make recommendations along the way. The patient will need follow-up in the pulmonary office, for complete pulmonary function testing, to better characterize the lung portion of his chronic disease. Labs, x-rays, and medications are reviewed. The patient is stable. He might be considered for possible discharge in the next day or so. The patient is counseled about the importance of smoking cessation. Plan dated October 04, 2024. The patient is seen today in room 378. The patient is currently on 2 L. No IV fluids. Clinically, the patient is improved. The patient was admitted with a diagnosis of CHF. The patient will follow-up with me in the office, for complete pulmonary function testing, to further characterize his underlying COPD. Labs, x-rays, and all medications are reviewed. We will continue to follow make recommendations where appropriate. The patient has been counseled about the importance of smoking cessation. Time with Patient: Less than 30
--- NOTE | 2024-10-04 14:10 | P.PN ---
Subjective Patient is seen for follow-up for chronic kidney disease and acute kidney injury. Currently being diuresed. Lasix has been decreased. Renal function has improved with serum creatinine down to 1.6 today 24-hour urine output at 1850 mL. Objective - Vital Signs Vital signs: Vital Signs Temp 98 F 10/04/24 07:42 Pulse 76 10/04/24 12:00 Resp 16 10/04/24 11:40 BP 133/77 10/04/24 11:40 Pulse Ox 98 10/04/24 11:40 FiO2 Intake & Output 10/03/24 10/04/24 10/04/24 18:59 06:59 18:59 Intake Total 460 240 Output Total 575 775 Balance 460 575 -167 Weight 80.3 kg Intake: Oral 460 240 Output: Urine 575 775 Other: Voiding Method Urinal Urinal Urinal # Voids 2 - Exam Patient is awake, comfortable, no acute distress. Examination of the heart S1 and S2 Examination of the lungs bilateral breath sounds are heard Abdomen is soft nontender Examination of lower extremities shows edema 1+ bilaterally [employer] exam grossly intact - Labs CBC & Chem 7: 10/04/24 06:14 10/04/24 06:14 Labs: Abnormal Lab Results - Last 24 Hours (Table) 10/03/24 10/03/24 10/04/24 Range/Units 16:30 20:24 05:33 RBC (4.30-5.90) m/uL Hgb (13.0-17.5) gm/dL Sodium (137-145) mmol/L Potassium (3.5-5.1) mmol/L BUN (9-20) mg/dL Creatinine (0.66-1.25) mg/dL Glucose (74-99) mg/dL POC Glucose (mg/dL) 341 H 171 H 258 H (70-110) mg/dL 10/04/24 10/04/24 10/04/24 Range/Units 06:14 06:14 11:26 RBC 4.17 L (4.30-5.90) m/uL Hgb 12.2 L (13.0-17.5) gm/dL Sodium 135 L (137-145) mmol/L Potassium 5.3 H (3.5-5.1) mmol/L BUN 71 H (9-20) mg/dL Creatinine 1.65 H (0.66-1.25) mg/dL Glucose 220 H (74-99) mg/dL POC Glucose (mg/dL) 116 H (70-110) mg/dL Assessment and Plan Assessment: 1. Acute kidney injury nonoliguric, mostly cardiorenal, currently being diuresed. Component of urine retention noted with indwelling Dawson catheter currently. UA shows 3+ protein small blood. Ultrasound of the kidneys does not show any evidence of obstructive uropathy. 2. Chronic kidney disease stage III a with previous creatinine 1.26 in March 2024 3. Hypertension with CK D stage III 4. History of CHF, EF not known 5. Hyperkalemia associated with urine retention and acute kidney injury. Blood sugar is not elevated. No evidence of GI bleed. 6. Acute hypoxic respiratory failure 7. Right renal calculus 0.7 cm, nonobstructive Plan: Maintain low potassium diet. No urine retention noted Patient is advised to avoid further use of NSAIDs Continue with Lasix
[2024-10-04 16:23] LABS: Glucose,Whole Blood 279 mg/dL (70-110)
[2024-10-04 21:00] LABS: Glucose,Whole Blood 199 mg/dL (70-110)
[2024-10-05 05:56] LABS: Glucose,Whole Blood 170 mg/dL (70-110)
[2024-10-05 07:13] LABS: HCT 36.4 % (39.0-53.0); HGB 11.7 gm/dL (13.0-17.5); Hypochromasia Moderate; MCH 29.9 pg (25.0-35.0); MCHC 32.1 g/dL (31.0-37.0); MCV 93.2 fL (80.0-100.0); Mean Platelet Volume 8.6; Platelet Count 311 k/uL (150-450); RBC 3.91 m/uL (4.30-5.90); RDW 14.3 % (11.5-15.5); WBC 9.8 k/uL (3.8-10.6)
[2024-10-05 07:31] LABS: African American GFR (CKD) 51 (>60 ml/min/1.73 sqM); Anion Gap 7 mmol/L; Blood Urea Nitrogen 68 mg/dL (9-20); Calcium 8.6 mg/dL (8.4-10.2); Carbon Dioxide 30 mmol/L (22-30); Chloride 98 mmol/L (98-107); Glucose 162 mg/dL (74-99); Non-African American GFR(CKD) 44 (>60 ml/min/1.73 sqM); Sodium 135 mmol/L (137-145)
[2024-10-05] MEDS: IPRATROPIUM-ALBUTEROL 3 ML NEB INHALATION SCH (07:58)
[2024-10-05] MEDS ORDERED: IPRATROPIUM-ALBUTEROL 3 ML NEB INHALATION PRN (10:13)
[2024-10-05] MEDS: FUROSEMIDE 10 MG/ML 4 ML VIAL IV SCH (10:19)
--- NOTE | 2024-10-05 10:45 | P.PN ---
Subjective Patient is seen in follow-up for acute kidney injury on chronic kidney disease. Renal function stable. Has been voiding. Does admit to swelling in the lower extremities. Vital signs are stable. General: No acute distress. HEENT: Head exam is unremarkable. LUNGS: No audible rhonchi or wheezes. HEART: Rate and Rhythm are regular. ABDOMEN: Nontender. EXTREMITITES: 1+ edema. Objective - Vital Signs Vital signs: Vital Signs Temp 98 F 10/05/24 07:50 Pulse 66 10/05/24 08:10 Resp 18 10/05/24 07:50 BP 137/79 10/05/24 07:50 Pulse Ox 95 10/05/24 07:50 FiO2 Intake & Output 10/04/24 10/05/24 10/05/24 18:59 06:59 18:59 Intake Total 480 240 Output Total 1100 325 Balance -620 -325 240 Weight 80.5 kg Intake: Oral 480 240 Output: Urine 1100 325 Other: Voiding Method Urinal Urinal Urinal # Bowel Movements 1 - Labs CBC & Chem 7: 10/05/24 06:26 10/05/24 06:26 Labs: Abnormal Lab Results - Last 24 Hours (Table) 10/04/24 10/04/24 10/04/24 Range/Units 11:26 16:22 20:02 RBC (4.30-5.90) m/uL Hgb (13.0-17.5) gm/dL Hct (39.0-53.0) % Sodium (137-145) mmol/L BUN (9-20) mg/dL Creatinine (0.66-1.25) mg/dL Glucose (74-99) mg/dL POC Glucose (mg/dL) 116 H 279 H 199 H (70-110) mg/dL 10/05/24 10/05/24 10/05/24 Range/Units 05:54 06:26 06:26 RBC 3.91 L (4.30-5.90) m/uL Hgb 11.7 L (13.0-17.5) gm/dL Hct 36.4 L (39.0-53.0) % Sodium 135 L (137-145) mmol/L BUN 68 H (9-20) mg/dL Creatinine 1.65 H (0.66-1.25) mg/dL Glucose 162 H (74-99) mg/dL POC Glucose (mg/dL) 170 H (70-110) mg/dL Assessment and Plan Plan: Assessment: 1. Acute kidney injury secondary to ATN secondary to cardiorenal syndrome. No hydronephrosis noted on kidney ultrasound. Creatinine stable at 1.65 today. 2. Chronic kidney disease stage IIIa with creatinine 1.2 in March 2024. 3. Volume overload. 4. Acute on chronic systolic CHF ejection fraction of 30 to 35% with moderate pulmonary hypertension. 5. Urinary retention. On Flomax. Dawson catheter removed. Plan: Change Lasix to IV for now. Add fluid restriction. Continue to monitor renal function and urine output. Repeat UA. Avoid nephrotoxins.
--- NOTE | 2024-10-05 10:56 | US ---
EXAMINATION TYPE: US chest DATE OF EXAM: 10/05/2024 Exam done portable COMPARISON: Chest radiograph 10/03/2024 CLINICAL INDICATION: Male, 59 years old with history of Markings for thoracentesis by pulmonary staff ; TECHNIQUE: Grayscale imaging of the chest. Targeted ultrasound of the posterior lower bilateral torres thoraces FINDINGS: EXAM MEASUREMENTS: Right Pleural Effusion pocket size: 10.6 cm Right skin surface to fluid distance: 2.0 cm Lung seen within anterior portion of pocket Left Pleural Effusion pocket size: 8.9 cm Left skin surface to fluid distance: 2.5 cm Lung seen within anterior portion of pocket Right side marked for possible thoracentesis outside the dept. Left side marked for possible thoracentesis outside the dept. Pulmonologists are able to review the images in the patient?s EMR. IMPRESSIONS: Moderate bilateral pleural effusions. [facility], , 10/05/2024 10:54 AM
[2024-10-05 11:33] LABS: Glucose,Whole Blood 174 mg/dL (70-110)
[2024-10-05 12:44] LABS: Appearance,Urine Clear (Clear); Bilirubin,Urine Negative (Negative); Blood,Urine Trace (Negative); Color,Urine Colorless; Glucose,Urine (UA) Negative (Negative); Hyaline Casts,Urine 1 /lpf (0-2); Ketones,Urine Negative (Negative); Leukocyte Esterase,Urine Negative (Negative); Mucus,Urine Rare /hpf; Nitrite,Urine Negative (Negative); PH, Urine 5.5 (5.0-8.0); Protein,Urine 2+ (Negative); RBC,Urine 3 /hpf (0-5); Specific Gravity,Urine 1.008 (1.001-1.035); Squamous Epithelial Cell,Urine <1 /hpf (0-4); Urobilinogen,Urine <2.0 mg/dL (<2.0); WBC,Urine <1 /hpf (0-5)
--- NOTE | 2024-10-05 14:58 | P.PN ---
Subjective Progress Note Date: 10/05/24 This is a very pleasant 59-year-old male patient with a known history of congestive heart failure, diabetes mellitus type 2, COPD, ongoing smoker of 40 years, hypertension, hyperlipidemia, chronic kidney disease who had recently moved here from [place]. He presented to the emergency room on September 29, 2024 with complaints of shortness of breath and left-sided chest pain. Chest x- ray was consistent with congestive heart failure. proBNP was 11,300. VQ scan revealed low probability for PE. Echocardiogram reveals impaired left ventricular systolic function with ejection fraction of 30 to 35%. Moderate pulmonary hypertension. He is seen today in consultation on the selective care unit. He is currently sitting up in bed. Awake and alert in no acute distress. Maintaining good O2 saturations in the 90s on 3 L/min per nasal cannula. He states he is breathing better compared to when he first came in. White count 8.6. Hemoglobin 11.4. Platelets 354. Sodium 135. Potassium 6.1. Bicarb 28. BUN 60. Creatinine 1.99. Glucose 125. He was initiated on DuoNeb inhalations, prednisone and IV diuretics. Lovenox for DVT prophylaxis. NicoDerm patch in place. Progress note dated October 02, 2024. The patient is seen today in room 378. He is feeling much better. He was admitted with a diagnosis of shortness of breath, primarily related CHF, but also COPD. He continues on oxygen at 3 L. He is not receiving any IV fluids. Current labs include a white count 7.8, hemoglobin 12.1, hematocrit 39.3, and platelet count 281,000. Sodium 132, potassium 5.6, chlorides 103, CO2 24, BUN 64, and creatinine 1.98. Glucose is 205. Calcium is 8.7. Bilateral lower extremity Dopplers, were negative. Progress note dated October 03, 2024. 59-year-old male admitted with a diagnosis of congestive heart failure. The patient likely also has some underlying COPD. He did smoke heavily for 40 years. The patient is seen today in room 378. He continues on oxygen, 2 L. Saturations are 98%. The patient is not receiving any IV fluids. Current labs include a sodium 136, potassium 5.2, chlorides 98, CO2 31, anion gap 7, BUN 66, creatinine 1.91. Glucose is 210. Calcium is 8.9. Progress note dated October 04, 2024. 59-year-old male admitted with a diagnosis of congestive heart failure, but also, with likely underlying COPD. The patient is seen today in room 378. He is sitting in bed, in no distress. He is on 2 L of oxygen. Saturations are 99%. He is not receiving any IV fluids. Current labs include a white count 9.3, hemoglobin 12.2, hematocrit 39.4, and platelet count 296,000. Sodium 135, potassium 5.3, chlorides 101, CO2 28, BUN 71, creatinine 1.65. Glucose is 116. Calcium 8.7. Chest x-ray reveals some cardiomegaly, and some bibasilar atelectasis, and/or infiltrates. There may be small bilateral effusions as well. On 10/05/2024, patient is being seen for a follow-up. The patient has an acute hypoxic respiratory failure due to COPD/CHF exacerbation. Noted the patient used to live in [place] and currently is on [place]. He continues to have ex ertional dyspnea. Is having difficulties laying down flat in bed. He has also ongoing dyspnea at rest. He remains on DuoNeb nebulized treatments [id number]. He continues to have edema lower extremities bilaterally and based on that I switch the patient back to IV Lasix 40 mg every 12 hours. His white cell count is at 9.8 with a hemoglobin 11.7 and a platelet count of 311. BUN 68 with a creatinine of 1.6 and a sodium levels at 135. Note that his procalcitonin level at time of admission was 0.14. His proBNP level was 11,300. Reviewed the VQ scan and it was a very low and of intermediate probability. The follow-up chest x-ray from 10/03/2024 showed bilateral pleural effusion ted ng with cardiomegaly and smaller lung volumes and based on that, an ultrasound of the chest was ordered to evaluate for any pleural effusion. He is currently on Lovenox 40 mg subcu for DVT prophylaxis. Remains on Coreg 12.5 mg twice daily Objective - Vital Signs Vital signs: Vital Signs Temp 98 F 10/05/24 07:50 Pulse 66 10/05/24 08:10 Resp 18 10/05/24 07:50 BP 137/79 10/05/24 07:50 Pulse Ox 95 10/05/24 07:50 FiO2 Intake & Output 10/04/24 10/05/24 10/05/24 18:59 06:59 18:59 Intake Total 480 240 Output Total 1100 325 Balance -620 -325 240 Weight 80.5 kg Intake: Oral 480 240 Output: Urine 1100 325 Other: Voiding Method Urinal Urinal Urinal # Bowel Movements 1 - Exam No acute distress, oriented 3. Currently on 2 L of oxygen. HEENT examination is grossly unremarkable. Mucous membranes are moist. No oral lesions. Neck supple. Full range of motion. No adenopathy thyromegaly or neck vein distention. Cardiovascular examination reveals regular rhythm rate. S1-S2 normal. No S3 or S4. No discernible murmur noted. Lungs reveal reveal bibasilar crackles. No wheezes or rhonchi. Breath sounds equal. Diminished breath sound lung bases bilaterally Abdomen soft bowel sounds are heard. No masses or tenderness. Extremities reveal mild lower extremity edema. Skin is without rash or lesion. Neurologic examination is brief but nonfocal. - Labs CBC & Chem 7: 10/05/24 06:26 10/05/24 06:26 Labs: Abnormal Lab Results - Last 24 Hours (Table) 10/04/24 10/04/24 10/04/24 Range/Units 11:26 16:22 20:02 RBC (4.30-5.90) m/uL Hgb (13.0-17.5) gm/dL Hct (39.0-53.0) % Sodium (137-145) mmol/L BUN (9-20) mg/dL Creatinine (0.66-1.25) mg/dL Glucose (74-99) mg/dL POC Glucose (mg/dL) 116 H 279 H 199 H (70-110) mg/dL 10/05/24 10/05/24 10/05/24 Range/Units 05:54 06:26 06:26 RBC 3.91 L (4.30-5.90) m/uL Hgb 11.7 L (13.0-17.5) gm/dL Hct 36.4 L (39.0-53.0) % Sodium 135 L (137-145) mmol/L BUN 68 H (9-20) mg/dL Creatinine 1.65 H (0.66-1.25) mg/dL Glucose 162 H (74-99) mg/dL POC Glucose (mg/dL) 170 H (70-110) mg/dL Assessment and Plan Plan: Acute hypoxemic respiratory failure secondary to an acute exacerbation of chronic systolic congestive heart failure with impaired left ventricular systolic function with an ejection fraction of 30 to 35%. The patient is currently on 2 L of oxygen by nasal cannula Acute exacerbation of chronic obstructive pulmonary disease. Acute CHF exacerbation with elevated proBNP level at time of admission with bilateral pleural effusions Chronic and ongoing tobacco dependence of 40 years. Acute on chronic kidney disease, creatinine is down to 1.6 Hyperkalemia secondary to above, improved Systolic heart failure with an ejection fraction of 30 to 35%, with moderate degree of pulmonary hypertension Diabetes mellitus, type II. Hypertension. Hyperlipidemia. Plan: Continue oxygen supplementation to maintain saturation above 90%, currently on 2 L Restart Lasix 40 mg IV every 12 hours Monitor renal function Ultrasound of the chest Thoracentesis if there is any sizable pleural effusion Continue DuoNeb nebulized treatments Start IV Solu-Medrol Will continue to follow
[2024-10-05] MEDS: methylPREDNISolone SOD SUCCI 125 MG/2 ML VIAL IV SCH (15:55)
[2024-10-05 16:07] LABS: Glucose,Whole Blood 220 mg/dL (70-110)
[2024-10-05 19:55] LABS: Glucose,Whole Blood 277 mg/dL (70-110)
[2024-10-06 06:12] LABS: Glucose,Whole Blood 243 mg/dL (70-110)
[2024-10-06 08:08] LABS: African American GFR (CKD) 53 (>60 ml/min/1.73 sqM); Anion Gap 7 mmol/L; Blood Urea Nitrogen 69 mg/dL (9-20); Calcium 8.8 mg/dL (8.4-10.2); Carbon Dioxide 31 mmol/L (22-30); Chloride 99 mmol/L (98-107); Glucose 246 mg/dL (74-99); Magnesium 1.9 mg/dL (1.6-2.3); Non-African American GFR(CKD) 46 (>60 ml/min/1.73 sqM); Potassium 4.7 mmol/L (3.5-5.1); Sodium 137 mmol/L (137-145)
--- NOTE | 2024-10-06 10:22 | P.PN ---
Subjective Patient is seen in follow-up for acute kidney injury on chronic kidney disease. Renal function stable. Has been voiding. On IV Lasix. Vital signs are stable. General: No acute distress. HEENT: Head exam is unremarkable. LUNGS: No audible rhonchi or wheezes. HEART: Rate and Rhythm are regular. ABDOMEN: Nontender. EXTREMITITES: 1+ edema. Objective - Vital Signs Vital signs: Vital Signs Temp 97.7 F 10/06/24 08:10 Pulse 74 10/06/24 08:40 Resp 18 10/06/24 08:10 BP 154/86 10/06/24 08:10 Pulse Ox 97 10/06/24 08:10 FiO2 Intake & Output 10/05/24 10/06/24 10/06/24 18:59 06:59 18:59 Intake Total 580 480 220 Output Total 800 400 Balance -220 480 -180 Weight 78.9 kg Intake: Oral 580 480 220 Output: Urine 800 400 Other: Voiding Method Urinal Urinal Urinal # Voids 2 - Labs CBC & Chem 7: 10/05/24 06:26 10/06/24 07:23 Labs: Abnormal Lab Results - Last 24 Hours (Table) 10/05/24 10/05/24 10/05/24 Range/Units 11:32 11:48 16:05 Carbon Dioxide (22-30) mmol/L BUN (9-20) mg/dL Creatinine (0.66-1.25) mg/dL Glucose (74-99) mg/dL POC Glucose (mg/dL) 174 H 220 H (70-110) mg/dL Urine Protein 2+ H (Negative) Urine Blood Trace H (Negative) Urine Mucus Rare H (None) /hpf 10/05/24 10/06/24 10/06/24 Range/Units 19:54 06:10 07:23 Carbon Dioxide 31 H (22-30) mmol/L BUN 69 H (9-20) mg/dL Creatinine 1.61 H (0.66-1.25) mg/dL Glucose 246 H (74-99) mg/dL POC Glucose (mg/dL) 277 H 243 H (70-110) mg/dL Urine Protein (Negative) Urine Blood (Negative) Urine Mucus (None) /hpf Assessment and Plan Plan: Assessment: 1. Acute kidney injury secondary to ATN secondary to cardiorenal syndrome. No hydronephrosis noted on kidney ultrasound. Creatinine stable at 1.61 today. 2. Chronic kidney disease stage IIIa with creatinine 1.2 in March 2024. Etiology is diabetic kidney disease. 3. Volume overload. Improving with diuresis. 4. Acute on chronic systolic CHF ejection fraction of 30 to 35% with moderate pulmonary hypertension. 5. Urinary retention. On Flomax. Dawson catheter removed. 6. Diabetes mellitus. Plan: Maintain IV Lasix. Add SGLT2 inhibitor. Maintain fluid restriction. Continue to monitor renal function and urine output. Avoid nephrotoxins.
--- NOTE | 2024-10-06 10:52 | P.PN ---
Subjective Progress Note Date: 10/05/24 59 years old male with no significant past medical history. Who does not follow-up with PCP. Presents because of feeling short of breath for the last 6 days. Patient also reports having some chest pain when he came into the hospital, as per patient is gone now and rated as 0/10. He has been having some cough and green phlegm for the last 5 days He smokes 1 pack/day and he were counseled to quit and he agrees and he wants nicotine patch but no alcohol or illicit drugs He has mild headache. He has some wobbly walking because of his knee replacement. But no new weakness No specific GI/ symptom On admission he stated Clinic with a heart rate of breathing is 20-22. He was saturating 94% on 4 L oxygen via nasal cannula. Labs reviewed. He WBC is mildly up at 11,000. Rest of CBC is unremarkable Creatinine 1.8. Liver enzymes are unremarkable. INR 1.1 Troponin is elevated at 0.04 proBNP is elevated 11 300 Chest x-ray showing cardiomegaly with pulmonary vascular congestion and bilateral pleural effusion. With some atelectasis, pneumonia felt less likely Pro- Calcitonin is pending EKG showing sinus tachycardia at 100% with no significant ST-T changes Patient received aspirin in the emergency room at 325 mg and started on Lasix. 09/30 Patient is still tachypneic and dyspneic. Also patient reports improvement in his breathing He denies chest pain. No significant coughing. Still with bilateral pitting leg edema more on the left side. He has evidence of urinary retention with bladder scan 421. Dawson catheter was inserted. We will add Flomax. He made good urine output overnight. Repeat potassium was 5.9. Creatinine 1.8. Monitor labs later on today. Echocardiogram is pending 10/01 Patient sitting up in bed He feels his breathing is little better but not significantly improved. He still slightly tachypneic and wheezing This morning his Dawson catheter was bothering him and he wanted to be taken out. Dawson catheter was removed and will keep checking his bladder scan He is on normal saline 75 mL/h D-dimer was elevated at three 1.49 Pulmonary perfusion scan showing low of intermediate probability of PE We will check leg ultrasound We will consult pulmonary service for shortness of breath Start prednisone 50 mg for his wheezing 10/02 Patient feels better, his breathing is better and less wheezing No leg pain and he is walking fine. Ultrasound of the leg is negative for DVT. Patient urinating with no difficulty. He requested Dawson catheter to be removed Renal ultrasound for kidney disease:No evidence of obstructive uropathy and there is right nonobstructive urinary calculus He is currently on Lasix 40 mg daily Getting 10 gmof Lokelma x 4 doses. Potassium better today at 5.6 Creatinine stable at 1.9 Ejection fraction is 30 to 35% per echocardiogram Patient counseled about the importance of outpatient follow-up and need to find a new PCP within a week after discharge and he agrees 10/03 -patient seen and evaluated at bedside, patient does complain of exertional shortness of breath remains on 4 L of oxygen, patient given Lokelma for potassium of 5.2, creatinine 1.91 10/04- patient seen and evaluated bedside on evaluation patient is awake and alert does have exertional shortness of breath, continue to remain on 2 L of oxygen blood work reviewed potassium of 5.3, Lokelma scheduled, we will follow- up on basic metabolic panel potassium of 5.3, Lokelma given. Patient does complain of shortness of breath on exertion does not feel he is ready for discharge 10/05/2024 Patient is sitting at the side of the bed. Awake alert oriented x 3. Still complains of shortness of breath and also worsening leg swelling. Requiring 2 L oxygen via nasal cannula. No complaints of chest pain. No cough or sputum production. Laboratory data showed WBC 9.8 hemoglobin 11.7 and platelets 3 liver sodium 135 potassium 5.0 chloride 98 bicarb is 30, BUN 68 and creatinine 1.65 and blood sugar 162. Lasix changed back to IV 40 mg every 12 hourly. Chest ultrasound was done showed moderate bilateral pleural effusions. Nephrology and pulmonary is on board. GENERAL: The patient is alert and oriented x3, ill appearance, nasal cannula in place HEENT: Pupils are round and equally reacting to light. EOMI Normocephalic, atraumatic. CARDIOVASCULAR: S1 and S2 present. No murmurs, rubs, or gallops. PULMONARY: Decreased breath sounds, bilateral rhonchi ABDOMEN: Soft, nontender, nondistended, normoactive bowel sounds. No palpable organomegaly. MUSCULOSKELETAL: No joint swelling or deformity. EXTREMITIES: bilateral pitting leg edema. NEUROLOGICAL: Gross neurological examination did not reveal any focal deficits. Objective - Vital Signs Vital signs: Vital Signs Temp 97.6 F 10/05/24 20:10 Pulse 70 10/05/24 21:54 Resp 18 10/05/24 20:10 BP 152/93 10/05/24 20:10 Pulse Ox 95 10/05/24 20:10 FiO2 Intake & Output 10/05/24 10/05/24 10/06/24 06:59 18:59 06:59 Intake Total 580 Output Total 325 800 Balance -325 -220 Weight 80.5 kg Intake: Oral 580 Output: Urine 325 800 Other: Voiding Method Urinal Urinal Urinal # Bowel Movements 1 - Labs CBC & Chem 7: 10/05/24 06:26 10/06/24 07:23 Labs: Abnormal Lab Results - Last 24 Hours (Table) 10/05/24 10/05/24 10/05/24 Range/Units 05:54 06:26 06:26 RBC 3.91 L (4.30-5.90) m/uL Hgb 11.7 L (13.0-17.5) gm/dL Hct 36.4 L (39.0-53.0) % Sodium 135 L (137-145) mmol/L BUN 68 H (9-20) mg/dL Creatinine 1.65 H (0.66-1.25) mg/dL Glucose 162 H (74-99) mg/dL POC Glucose (mg/dL) 170 H (70-110) mg/dL Urine Protein (Negative) Urine Blood (Negative) Urine Mucus (None) /hpf 10/05/24 10/05/24 10/05/24 Range/Units 11:32 11:48 16:05 RBC (4.30-5.90) m/uL Hgb (13.0-17.5) gm/dL Hct (39.0-53.0) % Sodium (137-145) mmol/L BUN (9-20) mg/dL Creatinine (0.66-1.25) mg/dL Glucose (74-99) mg/dL POC Glucose (mg/dL) 174 H 220 H (70-110) mg/dL Urine Protein 2+ H (Negative) Urine Blood Trace H (Negative) Urine Mucus Rare H (None) /hpf 10/05/24 Range/Units 19:54 RBC (4.30-5.90) m/uL Hgb (13.0-17.5) gm/dL Hct (39.0-53.0) % Sodium (137-145) mmol/L BUN (9-20) mg/dL Creatinine (0.66-1.25) mg/dL Glucose (74-99) mg/dL POC Glucose (mg/dL) 277 H (70-110) mg/dL Urine Protein (Negative) Urine Blood (Negative) Urine Mucus (None) /hpf Assessment and Plan Assessment: Assessment: Acute hypoxic respiratory failure secondary to congestive heart failure Acute congestive heart failure, new onset. Systolic with ejection fraction 35% Bilateral moderate pleural effusion Acute exacerbation of COPD acute renal failure on chronic kidney disease, recurrent hyperkalemia urinary retention requiring Dawson catheter diabetes mellitus type 2 hyperkalemia secondary to CKD, CORBY elevated troponin secondary to type II IA elevated D-dimer with Low and of intermediate probability of PE. Ultrasound of the leg is negative Acute urinary retention status post Dawson catheter insertion in emergency room. Patient request to remove Dawson catheter Nicotine dependence. Patient counseled and he agrees to the nicotine patch Plan: * consultation obtained from pulmonary medicine, cardiology, nephrology * in regards to hypoxic respiratory failure patient on 2 L of oxygen, continue IV Lasix, monitor intake and output, will need oxygen for discharge * in regards to COPD exacerbation, continue prednisone, continue DuoNeb breathing treatment * in regards to hyperkalemia Lokelma ordered for 3 doses, will follow-up on potassium levels * in regards to urinary retention continue Flomax monitor output * venous ultrasound lower extremity negative for DVT, VQ scan negative low suspicion for PE * Dawson catheter discontinued, keep monitoring bladder scan * Labs and medication were reviewed * DVT prophylaxis: Subcutaneous Lovenox * GI Prophylaxis: Pepcid * PT/OT: to be determined Time with Patient: Greater than 30
[2024-10-06 11:41] LABS: Glucose,Whole Blood 338 mg/dL (70-110)
[2024-10-06] MEDS: DAPAGLIFLOZIN PROPANEDIOL 5 MG TABLET PO SCH (12:04)
--- NOTE | 2024-10-06 13:08 | XR ---
EXAMINATION TYPE: XR chest 1V portable DATE OF EXAM: 10/06/2024 1:01 PM COMPARISON: Chest radiographs from 10/03/2024, ultrasound chest 10/05/2024 TECHNIQUE: XR chest 1V portable Portable AP radiograph of the chest. CLINICAL INDICATION:Male, 59 years old with history of post thora; FINDINGS: Lungs/Pleura: No evidence of focal consolidation or pneumothorax. Blunting of the costophrenic angles is present. Bibasilar atelectasis. Pulmonary vascularity: Unremarkable. Heart/mediastinum: Cardiomediastinal silhouette is enlarged and stable. Musculoskeletal: No acute osseous pathology. IMPRESSION: Decrease in small right pleural effusion status post thoracentesis. Similar small moderate size left pleural effusion. No pneumothorax. [facility], , 10/06/2024 1:05 PM
[2024-10-06 16:22] LABS: Glucose,Whole Blood 226 mg/dL (70-110)
--- NOTE | 2024-10-06 18:33 | P.PN ---
Subjective Progress Note Date: 10/06/24 This is a very pleasant 59-year-old male patient with a known history of congestive heart failure, diabetes mellitus type 2, COPD, ongoing smoker of 40 years, hypertension, hyperlipidemia, chronic kidney disease who had recently moved here from [place]. He presented to the emergency room on September 29, 2024 with complaints of shortness of breath and left-sided chest pain. Chest x- ray was consistent with congestive heart failure. proBNP was 11,300. VQ scan revealed low probability for PE. Echocardiogram reveals impaired left ventricular systolic function with ejection fraction of 30 to 35%. Moderate pulmonary hypertension. He is seen today in consultation on the selective care unit. He is currently sitting up in bed. Awake and alert in no acute distress. Maintaining good O2 saturations in the 90s on 3 L/min per nasal cannula. He states he is breathing better compared to when he first came in. White count 8.6. Hemoglobin 11.4. Platelets 354. Sodium 135. Potassium 6.1. Bicarb 28. BUN 60. Creatinine 1.99. Glucose 125. He was initiated on DuoNeb inhalations, prednisone and IV diuretics. Lovenox for DVT prophylaxis. NicoDerm patch in place. Progress note dated October 02, 2024. The patient is seen today in room 378. He is feeling much better. He was admitted with a diagnosis of shortness of breath, primarily related CHF, but also COPD. He continues on oxygen at 3 L. He is not receiving any IV fluids. Current labs include a white count 7.8, hemoglobin 12.1, hematocrit 39.3, and platelet count 281,000. Sodium 132, potassium 5.6, chlorides 103, CO2 24, BUN 64, and creatinine 1.98. Glucose is 205. Calcium is 8.7. Bilateral lower extremity Dopplers, were negative. Progress note dated October 03, 2024. 59-year-old male admitted with a diagnosis of congestive heart failure. The patient likely also has some underlying COPD. He did smoke heavily for 40 years. The patient is seen today in room 378. He continues on oxygen, 2 L. Saturations are 98%. The patient is not receiving any IV fluids. Current labs include a sodium 136, potassium 5.2, chlorides 98, CO2 31, anion gap 7, BUN 66, creatinine 1.91. Glucose is 210. Calcium is 8.9. Progress note dated October 04, 2024. 59-year-old male admitted with a diagnosis of congestive heart failure, but also, with likely underlying COPD. The patient is seen today in room 378. He is sitting in bed, in no distress. He is on 2 L of oxygen. Saturations are 99%. He is not receiving any IV fluids. Current labs include a white count 9.3, hemoglobin 12.2, hematocrit 39.4, and platelet count 296,000. Sodium 135, potassium 5.3, chlorides 101, CO2 28, BUN 71, creatinine 1.65. Glucose is 116. Calcium 8.7. Chest x-ray reveals some cardiomegaly, and some bibasilar atelectasis, and/or infiltrates. There may be small bilateral effusions as well. On 10/05/2024, patient is being seen for a follow-up. The patient has an acute hypoxic respiratory failure due to COPD/CHF exacerbation. Noted the patient used to live in [place] and currently is on [place]. He continues to have ex ertional dyspnea. Is having difficulties laying down flat in bed. He has also ongoing dyspnea at rest. He remains on DuoNeb nebulized treatments [id number]. He continues to have edema lower extremities bilaterally and based on that I switch the patient back to IV Lasix 40 mg every 12 hours. His white cell count is at 9.8 with a hemoglobin 11.7 and a platelet count of 311. BUN 68 with a creatinine of 1.6 and a sodium levels at 135. Note that his procalcitonin level at time of admission was 0.14. His proBNP level was 11,300. Reviewed the VQ scan and it was a very low and of intermediate probability. The follow-up chest x-ray from 10/03/2024 showed bilateral pleural effusion ted ng with cardiomegaly and smaller lung volumes and based on that, an ultrasound of the chest was ordered to evaluate for any pleural effusion. He is currently on Lovenox 40 mg subcu for DVT prophylaxis. Remains on Coreg 12.5 mg twice daily On 10/06/2024, the patient is less short of breath compared to yesterday. The patient has responded nicely to bronchodilators and steroids and diuretics. No zachary ultrasound of the chest showed bilateral pleural effusion. Based on that, performed a right-sided thoracentesis on this patient and a total of 450 cc of pleural fluid was aspirated from the right lung without any complication. Chest x-ray shows no evidence of any pneumothorax. The patient meanwhile is diuresing well and the patient is a negative fluid balance. On today's blood work, the risa rucker's BUN is 69 with a creatinine of 1.6 which is stable compared to yesterday and sodium levels at 137. Fluid balance over the past 24 hours is -940 cc. The patient is currently on room air oxygen. The patient remains on IV Lasix 40 mg every 12 hours. Objective - Vital Signs Vital signs: Vital Signs Temp 97.7 F 10/06/24 08:10 Pulse 76 10/06/24 11:35 Resp 18 10/06/24 08:10 BP 154/86 10/06/24 08:10 Pulse Ox 97 10/06/24 08:10 FiO2 Intake & Output 10/05/24 10/06/24 10/06/24 18:59 06:59 18:59 Intake Total 580 480 220 Output Total 800 400 Balance -220 480 -180 Weight 78.9 kg Intake: Oral 580 480 220 Output: Urine 800 400 Other: Voiding Method Urinal Urinal Urinal # Voids 2 - Exam No acute distress, oriented 3. Currently on room air oxygen HEENT examination is grossly unremarkable. Mucous membranes are moist. No oral lesions. Neck supple. Full range of motion. No adenopathy thyromegaly or neck vein distention. Cardiovascular examination reveals regular rhythm rate. S1-S2 normal. No S3 or S4. No discernible murmur noted. Lungs reveal reveal bibasilar crackles. No wheezes or rhonchi. Breath sounds equal. Diminished breath sound lung bases bilaterally Abdomen soft bowel sounds are heard. No masses or tenderness. Extremities reveal mild lower extremity edema. Skin is without rash or lesion. Neurologic examination is brief but nonfocal. - Labs CBC & Chem 7: 10/05/24 06:26 10/06/24 07:23 Labs: Abnormal Lab Results - Last 24 Hours (Table) 10/05/24 10/05/24 10/05/24 Range/Units 11:48 16:05 19:54 Carbon Dioxide (22-30) mmol/L BUN (9-20) mg/dL Creatinine (0.66-1.25) mg/dL Glucose (74-99) mg/dL POC Glucose (mg/dL) 220 H 277 H (70-110) mg/dL Urine Protein 2+ H (Negative) Urine Blood Trace H (Negative) Urine Mucus Rare H (None) /hpf 10/06/24 10/06/24 10/06/24 Range/Units 06:10 07:23 11:39 Carbon Dioxide 31 H (22-30) mmol/L BUN 69 H (9-20) mg/dL Creatinine 1.61 H (0.66-1.25) mg/dL Glucose 246 H (74-99) mg/dL POC Glucose (mg/dL) 243 H 338 H (70-110) mg/dL Urine Protein (Negative) Urine Blood (Negative) Urine Mucus (None) /hpf Assessment and Plan Plan: Acute hypoxemic respiratory failure secondary to an acute exacerbation of chronic systolic congestive heart failure with impaired left ventricular systolic function with an ejection fraction of 30 to 35%. The patient is currently on room air oxygen Acute exacerbation of chronic obstructive pulmonary disease, improving Acute CHF exacerbation with elevated proBNP level at time of admission with bilateral pleural effusions, improving. Bilateral pleural effusion and the patient is status post left-sided thoracentesis with removal of 450 cc of pleural fluid Chronic and ongoing tobacco dependence of 40 years. Acute on chronic kidney disease, creatinine is down to 1.6 Hyperkalemia secondary to above, improved Systolic heart failure with an ejection fraction of 30 to 35%, with moderate degree of pulmonary hypertension Diabetes mellitus, type II. Hypertension. Hyperlipidemia. Plan: Continue oxygen supplementation to maintain saturation above 90%, currently on room air oxygen Restart Lasix 40 mg IV every 12 hours Left-sided thoracentesis was done and the pleural fluid will be sent for analysis Monitor renal function Continue DuoNeb nebulized treatments Continue IV Solu-Medrol Will continue to follow
--- NOTE | 2024-10-06 18:34 | P.PCN ---
Date of Procedure: 10/06/24 Preoperative Diagnosis: Right-sided pleural effusion Postoperative Diagnosis: Right-sided pleural effusion Procedure(s) Performed: Right-sided thoracentesis Anesthesia: local Surgeon: Singh Retana IV fluids (ml): 0 Pathology: other Condition: stable Disposition: floor Operative Findings: A time out was performed and the chest x-ray was reviewed, the appropriate side was confirmed and marked. My hands were washed immediately prior to the procedure. I wore a surgical cap, mask with protective eyewear, sterile gown and sterile gloves throughout the procedure. The patient was prepped and draped in a sterile manner using chlorhexidine scrub after the appropriate level was p ercussed and confirmed by ultrasound. 1% lidocaine was used to anesthesize the skin, subcutaneous tissue, superior aspect of the rib periosteum and parietal pleura. A finder needle was then introduced over the superior aspect of the rib to locate the pleural fluid; 2colored fluid was aspirated at a depth of approximately 2 cm. A 10-blade scalpel was used to cristi the skin at the insertion site. The [id number] needle was then introduced through the skin incision into the pleural space using negative aspiration pressure and the red colometric indicator to confirm appropriate positioning of the needle. The thoracentesis catheter was then threaded without difficulty. Following 50 ml of turbid colored fluid was removed without difficulty. The catheter was then removed. No immediate complications were noted during the procedure. A post- procedure chest x-ray is pending at the time of this note. The fluid will be sent for studies. Estimated blood loss is 0cc
[2024-10-06 20:18] LABS: Glucose,Whole Blood 288 mg/dL (70-110)
[2024-10-07 00:13] LABS: Glucose,Whole Blood 336 mg/dL (70-110)
[2024-10-07] MEDS: INSULIN DETEMIR (LEVEMIR) 100 UNIT/ML SYR SQ SCH (00:17)
[2024-10-07 02:50] LABS: Glucose, BF Source Pleural fluid; Glucose, Body Fluid 302 mg/dL; LDH, Body Fluid Source Pleural fluid; T. Protein, Body Fluid Source Pleural fluid; Total Protein, Body Fluid 1220 mg/dL
[2024-10-07 03:36] VITALS: TEMP 97.4
[2024-10-07 04:06] LABS: Appearance,BF Clear (Clear)
[2024-10-07 06:01] LABS: Glucose,Whole Blood 257 mg/dL (70-110)
[2024-10-07 09:12] LABS: African American GFR (CKD) 44 (>60 ml/min/1.73 sqM); Anion Gap 6 mmol/L; Blood Urea Nitrogen 66 mg/dL (9-20); Calcium 9.3 mg/dL (8.4-10.2); Carbon Dioxide 33 mmol/L (22-30); Chloride 98 mmol/L (98-107); Glucose 221 mg/dL (74-99); Magnesium 1.9 mg/dL (1.6-2.3); Non-African American GFR(CKD) 38 (>60 ml/min/1.73 sqM); Potassium 4.2 mmol/L (3.5-5.1); Sodium 137 mmol/L (137-145)
[2024-10-07 09:59] VITALS: RESP 17
[2024-10-07 11:14] LABS: Glucose,Whole Blood 310 mg/dL (70-110)
--- NOTE | 2024-10-07 11:40 | P.PN ---
Subjective Patient is seen in follow-up for acute kidney injury on chronic kidney disease. Renal function worse with diuresis. Edema improved. Vital signs are stable. General: No acute distress. HEENT: Head exam is unremarkable. On room air. LUNGS: No audible rhonchi or wheezes. HEART: Rate and Rhythm are regular. ABDOMEN: Nontender. EXTREMITITES: Trace edema. Objective - Vital Signs Vital signs: Vital Signs Temp 97.4 F L 10/07/24 08:45 Pulse 72 10/07/24 08:45 Resp 17 10/07/24 08:45 BP 164/88 10/07/24 08:45 Pulse Ox 100 10/07/24 08:45 FiO2 Intake & Output 10/06/24 10/07/24 10/07/24 18:59 06:59 18:59 Intake Total 338 717 110 Output Total 400 1000 400 Balance -62 -283 -290 Weight 77.3 kg Intake: Oral 338 717 110 Output: Urine 400 1000 400 Other: Voiding Method Urinal Urinal Urinal - Labs CBC & Chem 7: 10/05/24 06:26 10/07/24 08:34 Labs: Abnormal Lab Results - Last 24 Hours (Table) 10/06/24 10/06/24 10/06/24 Range/Units 11:39 16:21 20:17 Carbon Dioxide (22-30) mmol/L BUN (9-20) mg/dL Creatinine (0.66-1.25) mg/dL Glucose (74-99) mg/dL POC Glucose (mg/dL) 338 H 226 H 288 H (70-110) mg/dL 10/07/24 10/07/24 10/07/24 Range/Units 00:11 05:59 08:34 Carbon Dioxide 33 H (22-30) mmol/L BUN 66 H (9-20) mg/dL Creatinine 1.86 H (0.66-1.25) mg/dL Glucose 221 H (74-99) mg/dL POC Glucose (mg/dL) 336 H 257 H (70-110) mg/dL 10/07/24 Range/Units 11:13 Carbon Dioxide (22-30) mmol/L BUN (9-20) mg/dL Creatinine (0.66-1.25) mg/dL Glucose (74-99) mg/dL POC Glucose (mg/dL) 310 H (70-110) mg/dL Microbiology - Last 24 Hours (Table) 10/06/24 14:00 Gram Stain - Preliminary Pleural Fluid Assessment and Plan Plan: Assessment: 1. Acute kidney injury secondary to ATN secondary to cardiorenal syndrome. No hydronephrosis noted on kidney ultrasound. Renal function worse with creatinine 1.86 today. 2. Chronic kidney disease stage IIIa with creatinine 1.2 in March 2024. Etiology is diabetic kidney disease. 3. Volume overload. Improving with diuresis. 4. Acute on chronic systolic CHF ejection fraction of 30 to 35% with moderate pulmonary hypertension. 5. Urinary retention. On Flomax. Dawson catheter removed. 6. Diabetes mellitus. Plan: Change Lasix to oral. Maintain SGLT2 number. Maintain fluid restriction. Continue to monitor renal function and urine output. Avoid nephrotoxins. Advised patient to monitor his weight closely at home and to notify physician if develops edema or gains more than 3 pounds in 1 week duration. Was also advised to maintain low-salt diet and fluid restriction of less than 50 to 55 ounces per day. Follow-up outpatient 1 week postdischarge.
[2024-10-07 12:14] VITALS: BP 179/98; PULSE 68
[2024-10-07] MEDS ORDERED: FUROSEMIDE 40 MG TAB PO SCH (16:00)
--- NOTE | 2024-10-07 16:34 | P.PN ---
Subjective Progress Note Date: 10/07/24 This is a very pleasant 59-year-old male patient with a known history of congestive heart failure, diabetes mellitus type 2, COPD, ongoing smoker of 40 years, hypertension, hyperlipidemia, chronic kidney disease who had recently moved here from [place]. He presented to the emergency room on September 29, 2024 with complaints of shortness of breath and left-sided chest pain. Chest x- ray was consistent with congestive heart failure. proBNP was 11,300. VQ scan revealed low probability for PE. Echocardiogram reveals impaired left ventricular systolic function with ejection fraction of 30 to 35%. Moderate pulmonary hypertension. He is seen today in consultation on the selective care unit. He is currently sitting up in bed. Awake and alert in no acute distress. Maintaining good O2 saturations in the 90s on 3 L/min per nasal cannula. He states he is breathing better compared to when he first came in. White count 8.6. Hemoglobin 11.4. Platelets 354. Sodium 135. Potassium 6.1. Bicarb 28. BUN 60. Creatinine 1.99. Glucose 125. He was initiated on DuoNeb inhalations, prednisone and IV diuretics. Lovenox for DVT prophylaxis. NicoDerm patch in place. Progress note dated October 02, 2024. The patient is seen today in room 378. He is feeling much better. He was admitted with a diagnosis of shortness of breath, primarily related CHF, but also COPD. He continues on oxygen at 3 L. He is not receiving any IV fluids. Current labs include a white count 7.8, hemoglobin 12.1, hematocrit 39.3, and platelet count 281,000. Sodium 132, potassium 5.6, chlorides 103, CO2 24, BUN 64, and creatinine 1.98. Glucose is 205. Calcium is 8.7. Bilateral lower extremity Dopplers, were negative. Progress note dated October 03, 2024. 59-year-old male admitted with a diagnosis of congestive heart failure. The patient likely also has some underlying COPD. He did smoke heavily for 40 years. The patient is seen today in room 378. He continues on oxygen, 2 L. Saturations are 98%. The patient is not receiving any IV fluids. Current labs include a sodium 136, potassium 5.2, chlorides 98, CO2 31, anion gap 7, BUN 66, creatinine 1.91. Glucose is 210. Calcium is 8.9. Progress note dated October 04, 2024. 59-year-old male admitted with a diagnosis of congestive heart failure, but also, with likely underlying COPD. The patient is seen today in room 378. He is sitting in bed, in no distress. He is on 2 L of oxygen. Saturations are 99%. He is not receiving any IV fluids. Current labs include a white count 9.3, hemoglobin 12.2, hematocrit 39.4, and platelet count 296,000. Sodium 135, potassium 5.3, chlorides 101, CO2 28, BUN 71, creatinine 1.65. Glucose is 116. Calcium 8.7. Chest x-ray reveals some cardiomegaly, and some bibasilar atelectasis, and/or infiltrates. There may be small bilateral effusions as well. On 10/05/2024, patient is being seen for a follow-up. The patient has an acute hypoxic respiratory failure due to COPD/CHF exacerbation. Noted the patient used to live in [place] and currently is on [place]. He continues to have ex ertional dyspnea. Is having difficulties laying down flat in bed. He has also ongoing dyspnea at rest. He remains on DuoNeb nebulized treatments [id number]. He continues to have edema lower extremities bilaterally and based on that I switch the patient back to IV Lasix 40 mg every 12 hours. His white cell count is at 9.8 with a hemoglobin 11.7 and a platelet count of 311. BUN 68 with a creatinine of 1.6 and a sodium levels at 135. Note that his procalcitonin level at time of admission was 0.14. His proBNP level was 11,300. Reviewed the VQ scan and it was a very low and of intermediate probability. The follow-up chest x-ray from 10/03/2024 showed bilateral pleural effusion ted ng with cardiomegaly and smaller lung volumes and based on that, an ultrasound of the chest was ordered to evaluate for any pleural effusion. He is currently on Lovenox 40 mg subcu for DVT prophylaxis. Remains on Coreg 12.5 mg twice daily On 10/06/2024, the patient is less short of breath compared to yesterday. The patient has responded nicely to bronchodilators and steroids and diuretics. No zachary ultrasound of the chest showed bilateral pleural effusion. Based on that, performed a right-sided thoracentesis on this patient and a total of 450 cc of pleural fluid was aspirated from the right lung without any complication. Chest x-ray shows no evidence of any pneumothorax. The patient meanwhile is diuresing well and the patient is a negative fluid balance. On today's blood work, the risa rucker's BUN is 69 with a creatinine of 1.6 which is stable compared to yesterday and sodium levels at 137. Fluid balance over the past 24 hours is -940 cc. The patient is currently on room air oxygen. The patient remains on IV Lasix 40 mg every 12 hours. On 10/07/2024, the patient is feeling much improved. The patient underwent a right-sided thoracentesis yesterday which further improved his respiratory status and the patient's pleural fluid was essentially transudate. His COPD is being optimized. The patient remains on bronchodilators. The patient is on steroids and the patient will to be discharged home on a prednisone burst taper in addition to that the patient will be offered a nebulizer. Trelegy Ellipta as maintenance should be adequate at time of discharge and the patient will be discharged home on oral diuretics. Blood work from today shows a BUN of 66 with a creatinine of 1.8 and sodium levels of 137. No other new complaints for now. The patient is currently on room air oxygen. Objective - Vital Signs Vital signs: Vital Signs Temp 97.4 F L 10/07/24 08:45 Pulse 72 10/07/24 08:45 Resp 17 10/07/24 08:45 BP 164/88 10/07/24 08:45 Pulse Ox 100 10/07/24 08:45 FiO2 Intake & Output 10/06/24 10/07/24 10/07/24 18:59 06:59 18:59 Intake Total 338 717 110 Output Total 400 1000 400 Balance -62 -283 -290 Weight 77.3 kg Intake: Oral 338 717 110 Output: Urine 400 1000 400 Other: Voiding Method Urinal Urinal Urinal - Exam No acute distress, oriented 3. Currently on room air oxygen HEENT examination is grossly unremarkable. Mucous membranes are moist. No oral lesions. Neck supple. Full range of motion. No adenopathy thyromegaly or neck vein distention. Cardiovascular examination reveals regular rhythm rate. S1-S2 normal. No S3 or S4. No discernible murmur noted. Lungs reveal reveal bibasilar crackles. No wheezes or rhonchi. Breath sounds equal. Diminished breath sound lung bases bilaterally Abdomen soft bowel sounds are heard. No masses or tenderness. Extremities reveal mild lower extremity edema. Skin is without rash or lesion. Neurologic examination is brief but nonfocal. - Labs CBC & Chem 7: 10/05/24 06:26 10/07/24 08:34 Labs: Abnormal Lab Results - Last 24 Hours (Table) 10/06/24 10/06/24 10/06/24 Range/Units 11:39 16:21 20:17 Carbon Dioxide (22-30) mmol/L BUN (9-20) mg/dL Creatinine (0.66-1.25) mg/dL Glucose (74-99) mg/dL POC Glucose (mg/dL) 338 H 226 H 288 H (70-110) mg/dL 10/07/24 10/07/24 10/07/24 Range/Units 00:11 05:59 08:34 Carbon Dioxide 33 H (22-30) mmol/L BUN 66 H (9-20) mg/dL Creatinine 1.86 H (0.66-1.25) mg/dL Glucose 221 H (74-99) mg/dL POC Glucose (mg/dL) 336 H 257 H (70-110) mg/dL 10/07/24 Range/Units 11:13 Carbon Dioxide (22-30) mmol/L BUN (9-20) mg/dL Creatinine (0.66-1.25) mg/dL Glucose (74-99) mg/dL POC Glucose (mg/dL) 310 H (70-110) mg/dL Microbiology - Last 24 Hours (Table) 10/06/24 14:00 Gram Stain - Preliminary Pleural Fluid Assessment and Plan Plan: Acute hypoxemic respiratory failure secondary to an acute exacerbation of chronic systolic congestive heart failure with impaired left ventricular systolic function with an ejection fraction of 30 to 35%. The patient is currently on room air oxygen, clinically stable Acute exacerbation of chronic obstructive pulmonary disease, improving Acute CHF exacerbation with elevated proBNP level at time of admission with bilateral pleural effusions, improving. Bilateral pleural effusion and the patient is status post left-sided thoracentesis with removal of 450 cc of pleural fluid and the pleural fluid is a transudate based on protein criteria and LDH criteria Chronic and ongoing tobacco dependence of 40 years. Acute on chronic kidney disease, creatinine is down to 1.6 Hyperkalemia secondary to above, improved Systolic heart failure with an ejection fraction of 30 to 35%, with moderate degree of pulmonary hypertension Diabetes mellitus, type II. Hypertension. Hyperlipidemia. Plan: Continue oxygen supplementation to maintain saturation above 90%, currently on room air oxygen Prednisone burst taper Nebulizer machine for home DuoNeb treatments Recommend Trelegy Ellipta at the time of discharge 100 mcg 1 puff a day Left-sided thoracentesis was done and the pleural fluid was a transudate Monitor renal function on outpatient basis Continue DuoNeb nebulized treatments Pulmonary and cardiology follow-up Possible discharge today.
[2024-10-08] MEDS ORDERED: predniSONE 10 MG TAB PO SCH (09:00)
== END 2024-10-07 13:59 | disposition home or self-care (01) | DRG 194 ==
LOC: EC 11:36 → 3SCARD 15:31
PROVIDERS: ADMIT Internal Medicine; ATTEND Internal Medicine
PROC: 0W993ZZ Drainage of Right Pleural Cavity, Percutaneous Approach (ICD-10-PCS; principal; 2024-10-06)
DX: I13.0 Hypertensive heart and chronic kidney disease with heart failure and stage 1 through stage 4 chronic kidney disease, or unspecified chronic kidney disease (principal); J96.01 Acute respiratory failure with hypoxia; E11.22 Type 2 diabetes mellitus with diabetic chronic kidney disease; N18.31 Chronic kidney disease, stage 3a; E78.00 Pure hypercholesterolemia, unspecified; I50.23 Acute on chronic systolic (congestive) heart failure; I16.0 Hypertensive urgency; R33.9 Retention of urine, unspecified; F17.210 Nicotine dependence, cigarettes, uncomplicated; I49.3 Ventricular premature depolarization; R00.0 Tachycardia, unspecified; N17.0 Acute kidney failure with tubular necrosis; E87.5 Hyperkalemia; I21.A1 Myocardial infarction type 2; I27.20 Pulmonary hypertension, unspecified; J44.1 Chronic obstructive pulmonary disease with (acute) exacerbation; Z96.659 Presence of unspecified artificial knee joint; I25.5 Ischemic cardiomyopathy; N20.0 Calculus of kidney; J91.8 Pleural effusion in other conditions classified elsewhere
CPT/HCPCS: 36415; 51798; 71045; 71046; 76604; 76770; 78582; 80048; 80053; 80061; 81001; 82945; 83036; 83605; 83615; 83735; 83880; 84132; 84145; 84157; 84484; 85025; 85027; 85379; 85610; 85730; 87070; 87205; 88108; 88305; 89050; 93005; 93306; 93970; 94640; 94760; 96372; 96374; 96375; 96376; 99291

== ENCOUNTER → 2024-10-28 | Outpatient (CLI) | payer OTHER ==
[2024-10-28 16:21] LABS: BUN/Creat Ratio 26.75 Ratio (12.00-20.00); Blood Urea Nitrogen 53.5 mg/dL (9.0-27.0); Carbon Dioxide 25.7 mmol/L (21.6-31.8); Chloride 100 mmol/L (96-109); Glucose 209 mg/dL (70-110); Magnesium 1.9 mg/dL (1.5-2.4); Potassium 4.2 mmol/L (3.5-5.5); Sodium 139 mmol/L (135-145)
== END | disposition home or self-care (01) ==
LOC: LABWHC1 09:58
PROVIDERS: ATTEND Nurse Practitioner Adult Health
DX: I10 Essential (primary) hypertension (principal)
CPT/HCPCS: 36415; 80048; 83735

== ENCOUNTER 2025-02-22 21:28 | Inpatient (IN) | payer OTHER ==
--- NOTE | 2025-02-22 21:33 | ED ---
General Adult HPI - General Stated complaint: Chest Pain Time Seen by Provider: 02/22/25 21:33 - History of Present Illness Initial comments: Andriy is a 60-year-old male with CHF and CKD who presents the ER today for evaluation of chest pain and not feeling well. Patient reports he went to his primary care this morning for his annual physical blood pressure was good he had blood work drawn he was supposed to go to [facility] and get his pneum ococcal vaccine but reported he started to not feel too good so he just went home instead. Patient rested throughout most the day no complaints. Around 4 PM he was get ready for dinner when he started feel really lightheaded fell backwards onto his tailbone. Patient reports that he then got up and ate rotisserie chicken for dinner then went to bed. Patient states that then developed diarrhea and he has been nauseated he has some crampy abdominal pain and about an hour prior to coming to the ER he developed pain in his left chest. - Related Data Previous Rx's Medication Instructions Recorded Acetaminophen Tab [Tylenol] 650 mg PO Q6HR PRN tab 10/07/24 Aspirin 81 mg PO DAILY #30 tab 10/07/24 Atorvastatin [Lipitor] 40 mg PO HS #30 tab 10/07/24 Dapagliflozin Propanediol [Farxiga] 5 mg PO DAILY #30 tab 10/07/24 Furosemide [Lasix] 40 mg PO BID@0900,1600 #60 tab 10/07/24 Ipratropium-Albuterol Nebulize 3 ml INHALATION RT-Q4H PRN #100 10/07/24 [Duoneb 0.5 mg-3 mg/3 ml Soln] each Ipratropium-Albuterol Nebulize 3 ml INHALATION RT-QID each 10/07/24 [Duoneb 0.5 mg-3 mg/3 ml Soln] Nicotine 21Mg/24Hr Patch [Habitrol] 1 patch TRANSDERM HS patch 10/07/24 carvediloL [Coreg*] 12.5 mg PO BID-W/MEALS #60 tab 10/07/24 predniSONE 30 mg PO DAILY #24 tab 10/07/24 Allergies Allergy/AdvReac Type Severity Reaction Status Date / Time No Known Allergies Allergy Verified 09/29/24 12:56 Review of Systems ROS Statement: Those systems with pertinent positive or pertinent negative responses have been documented in the HPI. ROS Other: All systems not noted in ROS Statement are negative. Past Medical History Past Medical History: Heart Failure, COPD, Diabetes Mellitus, Hypertension, Re nal Disease History of Any Multi-Drug Resistant Organisms: MRSA Date of last positivie culture/infection: 05/21/2024 MDRO Source:: upper lip Additional Past Surgical History / Comment(s): left wrist surgery, tumor removed from right side of neck about 40 years ago Past Anesthesia/Blood Transfusion Reactions: No Reported Reaction Past Psychological History: No Psychological Hx Reported Smoking Status: Current every day smoker Past Alcohol Use History: Occasional Past Drug Use History: None Reported - Past Family History Sister(s) Family Medical History: Cancer Additional Family Medical History / Comment(s): breast cancer, at 57 from cancer Father Family Medical History: Dementia Additional Family Medical History / Comment(s): alzheimers General Exam - General Exam Comments Initial Comments: Physical Exam GENERAL: Patient is well-developed and well-nourished. Patient is nontoxic and well- hydrated and is in no distress. HENT: Normocephalic, Atraumatic. EYES: PERRL, EOMI PULMONARY: Unlabored respirations. No audible rales rhonchi or wheezing was noted. CARDIOVASCULAR: There is a regular rate and rhythm without any murmurs gallops or rubs. ABDOMEN: Soft and nontender with normal bowel sounds. SKIN: Skin is clear with no lesions or rashes and otherwise unremarkable. : Deferred NEUROLOGIC: Patient is alert and oriented x3. Moving all extremities spontaneously MUSCULOSKELETAL: Normal extremities with adequate strength and full range of motion. No lower extremity swelling or edema. No calf tenderness. PSYCHIATRIC: Normal psychiatric evaluation. Course Vital Signs 02/22/25 21:30 Temperature 97.6 F Pulse Rate 74 Respiratory 20 Rate Blood Pressure 111/89 O2 Sat by Pulse 98 Oximetry Medical Decision Making - Medical Decision Making Was pt. sent in by a medical professional or institution (, PA, MOBILE WEB APPLICATION DEVELOPER, urgent care, hospital, or long term...) When possible be specific @ -No Did you speak to anyone other than the patient for history (EMS, parent, family, police, friend...)? What history was obtained from this source @ -EMS Did you review nursing and triage notes (agree or disagree)? Why? @ -I reviewed and agree with nursing and triage notes Were old charts reviewed (outside hosp., previous admission, EMS record, old EKG, old radiological studies, urgent care reports/EKG's, long term records)? Report findings @ -Previous labs were reviewed Differential Diagnosis (chest pain, altered mental status, abdominal pain women, abdominal pain men, vaginal bleeding, weakness, fever, dyspnea, syncope, headache, dizziness, GI bleed, back pain, seizure, CVA, palpatations, mental health)? @Differential Syncope: Valvular disease, hypertrophic cardiomyopathy, pulmonary embolism, tamponade, tachycardia, bradycardia, DC, hypovolemia, hemorrhage, dissection, anemia, intracranial hemorrhage, seizure, hypoglycemia, carbon monoxide poisoning, this is not meant to be an all-inclusive list. Differential Abdominal Pain Men: Appendicitis, cholecystitis, diverticulosis, ischemic bowel, pancreatitis, hepatitis, UTI, gastroenteritis, AAA, incarcerated hernia, bowel obstruction, constipation, inflammatory bowel, hepatitis, peptic ulcer disease, splenic infarction, perforated viscus, testicular torsion, this is not meant to be an all-inclusive list EKG interpreted by me (3pts min.). @ -As above X-rays interpreted by me (1pt min.). @ -Chest x-ray no signs of heart failure no widened mediastinum CT interpreted by me (1pt min.). @ -None done U/S interpreted by me (1pt. min.). @ -None done What testing was considered but not performed or refused? (CT, X-rays, U/S, labs)? Why? @ -None What meds were considered but not given or refused? Why? @ -None Did you discuss the management of the patient with other professionals (professionals i.e. , PA, MOBILE WEB APPLICATION DEVELOPER, lab, RT, psych nurse, psychiatric social worker, tile decorator, teacher, public service officer, casey saw operator)? Give summary @ -No Was smoking cessation discussed for >3mins.? @ -No Was critical care preformed (if so, how long)? @ -No Were there social determinants of health that impacted care today? How? (Homelessness, low income, unemployed, alcoholism, drug addiction, transportation, low edu. Level, literacy, decrease access to med. care, usp, rehab)? @ -No Was there de-escalation of care discussed even if they declined (Discuss DNR or withdrawal of care, Hospice)? DNR status @ -No What co-morbidities impacted this encounter? (DM, HTN, Smoking, COPD, CAD, Cancer, CVA, ARF, Chemo, Hep., AIDS, mental health diagnosis, sleep apnea, morb id obesity)? @ -CHF, CKD, hypertension Was patient admitted / discharged? Hospital course, mention meds given and route, prescriptions, significant lab abnormalities, going to OR and other pertinent info. @ -Admit Patient was seen and evaluated, history is obtained from patient and EMS. Patient experiencing abdominal pain nausea diarrhea had an episode of syncope. Patient was hypotensive for EMS responsive to fluids. Labs and imaging were ordered, patient has significant dehydration with BUN of 102 and creatinine at 3.6 with baseline creatinine of 2.0. Electrolytes were otherwise unremarkable. Given the patient's history of CHF I do feel he should be observed after receiving IV fluids. Patient agreeable to this plan. Patient to be admitted to med on-call [facility] physician group. Undiagnosed new problem with uncertain prognosis? @ -No Drug Therapy requiring intensive monitoring for toxicity (Heparin, Nitro, Insulin, Cardizem)? @ -No Were any procedures done? @ -No Diagnosis/symptom? @ -Nausea, diarrhea, dehydration, acute kidney injury Acute, or Chronic, or Acute on Chronic? @ -Acute Uncomplicated (without systemic symptoms) or Complicated (systemic symptoms)? @ -Complicated Side effects of treatment? @ -No Exacerbation, Progression, or Severe Exacerbation? @ -No Poses a threat to life or bodily function? How? (Chest pain, USA, DC, pneumonia, PE, COPD, DKA, ARF, appy, cholecystitis, CVA, Diverticulitis, Homicidal, Suicidal, threat to staff... and all critical care pts) @ -No - Lab Data Result diagrams: 02/22/25 21:47 02/22/25 21:47 Lab Results 02/22/25 02/22/25 02/22/25 Range/Units 21:47 21:47 21:47 WBC 9.19 (4.50-10.00) 10*3/uL RBC 4.26 L (4.40-5.60) 10*6/uL Hgb 12.4 L (13.0-17.0) g/dL Hct 35.6 L (39.6-50.0) % MCV 83.6 (80.0-97.0) fL MCH 29.1 (27.0-32.0) pg MCHC 34.8 (32.0-37.0) g/dL Plt Count 291 (140-440) 10*3/uL MPV 9.9 (9.5-12.2) fL Immature Gran % (Auto) 0.3 % Neutrophils % 55.7 % Lymphocytes % 28.7 % Monocytes % 11.5 % Eosinophils % 2.8 % Basophils % 1.0 % Immature Gran # 0.03 (0.00-0.04) 10*3/uL Neutrophils # 5.11 (1.80-7.70) 10*3/uL Lymphocytes # 2.64 (0.90-5.00) 10*3/uL Monocytes # 1.06 H (0.20-1.00) 10*3/uL Eosinophils # 0.26 (0.04-0.35) 10*3/uL Basophils # 0.09 (0.00-0.10) 10*3/uL PT 11.3 (10.0-12.5) sec INR 1.0 (<1.2) APTT 23.6 (22.0-30.0) sec Sodium 134 L (137-145) mmol/L Potassium 4.8 (3.5-5.1) mmol/L Chloride 102 (98-107) mmol/L Carbon Dioxide 15 L (22-30) mmol/L Anion Gap 17 mmol/L BUN 102 H* (9-20) mg/dL Creatinine 3.26 H (0.66-1.25) mg/dL Est GFR (CKD-EPI)AfAm 22 (>60 ml/min/1.73 sqM) Est GFR (CKD-EPI)NonAf 19 (>60 ml/min/1.73 sqM) Glucose 131 H (74-99) mg/dL Calcium 9.1 (8.4-10.2) mg/dL Magnesium 1.9 (1.6-2.3) mg/dL Total Bilirubin 0.3 (0.2-1.3) mg/dL AST 20 (17-59) U/L ALT 24 (4-49) U/L Alkaline Phosphatase 80 (38-126) U/L Troponin I (0.000-0.034) ng/mL Total Protein 7.0 (6.3-8.2) g/dL Albumin 3.8 (3.5-5.0) g/dL Lipase 286 (23-300) U/L 02/22/25 Range/Units 21:47 WBC (4.50-10.00) 10*3/uL RBC (4.40-5.60) 10*6/uL Hgb (13.0-17.0) g/dL Hct (39.6-50.0) % MCV (80.0-97.0) fL MCH (27.0-32.0) pg MCHC (32.0-37.0) g/dL Plt Count (140-440) 10*3/uL MPV (9.5-12.2) fL Immature Gran % (Auto) % Neutrophils % % Lymphocytes % % Monocytes % % Eosinophils % % Basophils % % Immature Gran # (0.00-0.04) 10*3/uL Neutrophils # (1.80-7.70) 10*3/uL Lymphocytes # (0.90-5.00) 10*3/uL Monocytes # (0.20-1.00) 10*3/uL Eosinophils # (0.04-0.35) 10*3/uL Basophils # (0.00-0.10) 10*3/uL PT (10.0-12.5) sec INR (<1.2) APTT (22.0-30.0) sec Sodium (137-145) mmol/L Potassium (3.5-5.1) mmol/L Chloride (98-107) mmol/L Carbon Dioxide (22-30) mmol/L Anion Gap mmol/L BUN (9-20) mg/dL Creatinine (0.66-1.25) mg/dL Est GFR (CKD-EPI)AfAm (>60 ml/min/1.73 sqM) Est GFR (CKD-EPI)NonAf (>60 ml/min/1.73 sqM) Glucose (74-99) mg/dL Calcium (8.4-10.2) mg/dL Magnesium (1.6-2.3) mg/dL Total Bilirubin (0.2-1.3) mg/dL AST (17-59) U/L ALT (4-49) U/L Alkaline Phosphatase (38-126) U/L Troponin I <0.012 (0.000-0.034) ng/mL Total Protein (6.3-8.2) g/dL Albumin (3.5-5.0) g/dL Lipase (23-300) U/L Disposition Clinical Impression: Dehydration, Diarrhea, CORBY (acute kidney injury), Inflammatory bowel disease Disposition: ADMITTED IP TO THIS [facility] Condition: Stable Is patient prescribed a controlled substance at d/c from ED?: No Referrals: Ludmila Zimmer NPC [REFERRING] - 1-2 days
[2025-02-22] MEDS: SODIUM CHLORIDE 0.9% 500 ML 500 ML IV STA (22:09)
[2025-02-22 22:42] LABS: Basophils # (A) 0.09 10*3/uL (0.00-0.10); Eosinophils # (A) 0.26 10*3/uL (0.04-0.35); Eosinophils % (A) 2.8 %; HCT 35.6 % (39.6-50.0); HGB 12.4 g/dL (13.0-17.0); Lymphocytes # (A) 2.64 10*3/uL (0.90-5.00); Lymphocytes % (A) 28.7 %; MCH 29.1 pg (27.0-32.0); MCHC 34.8 g/dL (32.0-37.0); MCV 83.6 fL (80.0-97.0); Mean Platelet Volume 9.9 fL (9.5-12.2); Monocytes # (A) 1.06 10*3/uL (0.20-1.00); Monocytes % (A) 11.5 %; Neutrophils # (A) 5.11 10*3/uL (1.80-7.70); Neutrophils % (A) 55.7 %; Platelet Count 291 10*3/uL (140-440); RBC 4.26 10*6/uL (4.40-5.60); RDW 14.8 % (11.5-14.5); WBC 9.19 10*3/uL (4.50-10.00)
--- NOTE | 2025-02-22 22:46 | XR ---
EXAMINATION TYPE: XR chest 2V DATE OF EXAM: 02/22/2025 10:22 PM COMPARISON: 10/06/2024 CLINICAL INDICATION: Male, 60 years old with history of Chest Pain, TECHNIQUE: XR chest 2V view(s) obtained. FINDINGS: The heart size is normal. The pulmonary vasculature is normal. The lungs are clear. IMPRESSION: 1. No acute pulmonary process. [facility], Workstation: [facility], 02/22/2025 10:44 PM
[2025-02-22 22:48] LABS: ALT 24 U/L (4-49); AST 20 U/L (17-59); African American GFR (CKD) 22 (>60 ml/min/1.73 sqM); Albumin 3.8 g/dL (3.5-5.0); Alkaline Phosphatase 80 U/L (38-126); Anion Gap 17 mmol/L; Calcium 9.1 mg/dL (8.4-10.2); Carbon Dioxide 15 mmol/L (22-30); Chloride 102 mmol/L (98-107); Glucose 131 mg/dL (74-99); Lipase 286 U/L (23-300); Magnesium 1.9 mg/dL (1.6-2.3); Non-African American GFR(CKD) 19 (>60 ml/min/1.73 sqM); Potassium 4.8 mmol/L (3.5-5.1); Sodium 134 mmol/L (137-145); Total Bilirubin 0.3 mg/dL (0.2-1.3)
[2025-02-22 22:56] LABS: Partial Thromboplastin Time 23.6 sec (22.0-30.0); Prothrombin Time 11.3 sec (10.0-12.5)
[2025-02-22 23:09] LABS: Blood Urea Nitrogen 102 mg/dL (9-20)
[2025-02-23] MEDS ORDERED: ONDANSETRON 4 MG/2 ML VIAL IVP PRN (00:06)
[2025-02-23] MEDS ORDERED: NALOXONE 0.4 MG/ML 1 ML VIAL IV PRN (00:06)
[2025-02-23] MEDS: SODIUM CHLORIDE 0.9% 1,000 ML IV ONE (00:47)
[2025-02-23] MEDS: 0.9% NACL WITH KCL 20 MEQ/L 1,000 ML IV SCH (01:35)
--- NOTE | 2025-02-23 04:44 | P.HPIM ---
History of Present Illness H&P Date: 02/23/25 Chief Complaint: Weakness and chest pain The patient is a 60-year-old male with history of chronic kidney disease, hypertension who states that he was doing well he was seen by his family physician on the day of admission for his routine checkup. Patient states his checkup was okay he was went home and had some chicken and then started to have diarrhea. The patient states he felt weak and fell on his tailbone. The patient states he then noticed chest pain he had no lower extremity edema so he presented to the emergency room for evaluation the patient was brought to the emergency room was found to have an elevated BUN of 102, he had a creatinine of 3.26. Chest x-ray did not show any acute abnormality. The patient had initial enzymes were negative. He was hospitalized for further workup and management. Review of Systems Cardiovascular: Reports chest pain Gastrointestinal: Reports diarrhea, Reports nausea 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 Past Anesthesia/Blood Transfusion Reactions: No Reported Reaction Past Psychological History: No Psychological Hx Reported Smoking Status: Current every day smoker Past Alcohol Use History: Occasional Past Drug Use History: None Reported - Past Family History Sister(s) Family Medical History: Cancer Additional Family Medical History / Comment(s): breast cancer, at 57 from cancer Father Family Medical History: Dementia Additional Family Medical History / Comment(s): alzheimers Medications and Allergies Home Medications Medication Instructions Recorded Confirmed Type Acetaminophen Tab [Tylenol] 650 mg PO Q6HR PRN tab 10/07/24 Rx Aspirin 81 mg PO DAILY #30 tab 10/07/24 Rx Atorvastatin [Lipitor] 40 mg PO HS #30 tab 10/07/24 Rx Dapagliflozin Propanediol [Farxiga] 5 mg PO DAILY #30 tab 10/07/24 Rx Furosemide [Lasix] 40 mg PO BID@0900,1600 #60 tab 10/07/24 Rx Ipratropium-Albuterol Nebulize 3 ml INHALATION RT-Q4H PRN #100 10/07/24 Rx [Duoneb 0.5 mg-3 mg/3 ml Soln] each Ipratropium-Albuterol Nebulize 3 ml INHALATION RT-QID each 10/07/24 Rx [Duoneb 0.5 mg-3 mg/3 ml Soln] Nicotine 21Mg/24Hr Patch [Habitrol] 1 patch TRANSDERM HS patch 10/07/24 Rx carvediloL [Coreg*] 12.5 mg PO BID-W/MEALS #60 tab 10/07/24 Rx predniSONE 30 mg PO DAILY #24 tab 10/07/24 Rx Allergies Allergy/AdvReac Type Severity Reaction Status Date / Time No Known Allergies Allergy Verified 09/29/24 12:56 Physical Exam Vitals: Vital Signs Temp Pulse Pulse Resp BP BP Pulse Ox 02/23/25 02:15 90 02/23/25 02:14 98.8 F 90 17 130/74 98 02/23/25 01:39 98.0 F 93 20 118/79 99 02/22/25 21:30 97.6 F 74 20 111/89 98 Intake and Output 02/22/25 02/22/25 02/23/25 14:59 22:59 06:59 Other: Voiding Method Toilet Weight 74.2 kg 74.2 kg - Constitutional General appearance: cooperative - Respiratory Respiratory: bilateral: CTA - Cardiovascular Rhythm: regular - Gastrointestinal General gastrointestinal: normal bowel sounds - Integumentary Integumentary: normal - Musculoskeletal Musculoskeletal: strength equal bilaterally - Psychiatric Psychiatric: appropriate affect Results CBC & Chem 7: 02/22/25 21:47 02/22/25 21:47 Labs: Abnormal Lab Results - Last 24 Hours (Table) 02/22/25 02/22/25 Range/Units 21:47 21:47 RBC 4.26 L (4.40-5.60) 10*6/uL Hgb 12.4 L (13.0-17.0) g/dL Hct 35.6 L (39.6-50.0) % Monocytes # 1.06 H (0.20-1.00) 10*3/uL Sodium 134 L (137-145) mmol/L Carbon Dioxide 15 L (22-30) mmol/L BUN 102 H* (9-20) mg/dL Creatinine 3.26 H (0.66-1.25) mg/dL Glucose 131 H (74-99) mg/dL Thrombosis Risk Factor Assmnt - Choose All That Apply Any of the Below Risk Factors Present?: Yes Other Risk Factors: Yes Each Risk Factor Represents 2 Points: Age 61-74 years Each Risk Factor Represents 3 Points: History of DVT/PE Other congenital or acquired thrombophilia - If yes, enter type in comment: No Thrombosis Risk Factor Assessment Total Risk Factor Score: 5 Thrombosis Risk Factor Assessment Level: High Risk Assessment and Plan (1) Chest pain Narrative/Plan: Serial enzymes, cardiology consult Current Visit: Yes Status: Acute Code(s): R07.9 - CHEST PAIN, UNSPECIFIED SNOMED Code(s): 17923092 (2) CORBY (acute kidney injury) Narrative/Plan: Acute on chronic kidney disease. Will give IV hydration, nephrology consult Current Visit: Yes Status: Acute Code(s): N17.9 - ACUTE KIDNEY FAILURE, UNSPECIFIED SNOMED Code(s): 66174188 (3) Dehydration Narrative/Plan: Likely secondary to diarrhea will need to monitor fluid status given patient history of CHF Current Visit: Yes Status: Acute Code(s): E86.0 - DEHYDRATION SNOMED Code(s): 86356115 (4) Diarrhea Narrative/Plan: Will monitor Current Visit: Yes Status: Acute Code(s): R19.7 - DIARRHEA, UNSPECIFIED SNOMED Code(s): 96810315
[2025-02-23 06:57] LABS: Glucose,Whole Blood 107 mg/dL (70-110)
[2025-02-23] MEDS ORDERED: IPRATROPIUM-ALBUTEROL 3 ML NEB INHALATION PRN (08:11)
[2025-02-23] MEDS ORDERED: ACETAMINOPHEN TAB 325 MG TAB PO PRN (08:13)
[2025-02-23] MEDS ORDERED: DAPAGLIFLOZIN PROPANEDIOL 5 MG TABLET PO SCH (09:00)
[2025-02-23] MEDS: HYDROcodone/APAP 5-325MG 1 EACH TAB PO PRN (09:02)
[2025-02-23] MEDS: HEPARIN SODIUM,PORCINE 5,000 UNIT/ML 1 ML VIAL SQ SCH (09:03)
[2025-02-23] MEDS: ASPIRIN 81 MG PO SCH (09:03)
[2025-02-23] MEDS: carvediloL 12.5 MG TAB PO SCH (09:03)
[2025-02-23] MEDS: SODIUM CHLORIDE 0.9% 1,000 ML IV SCH (09:06)
--- NOTE | 2025-02-23 09:09 | US ---
EXAMINATION TYPE: US kidneys/renal and bladder DATE OF EXAM: 02/23/2025 COMPARISON: NONE CLINICAL INDICATION: Male, 60 years old with history of CORBY on CKD TECHNIQUE: Grayscale imaging of the bilateral kidneys and urinary bladder: FINDINGS: EXAM MEASUREMENTS: Right Kidney: 10.3 x 4.7 x 4.3 cm Left Kidney: 11.7 x 5.1 x 4.4 cm Right Kidney: Echogenic focus upper pole 5 mm. Left Kidney: No hydronephrosis or masses seen Bladder: Partially distended bladder shows no gross abnormality. Bilateral Jets seen: yes IMPRESSION: 1. No hydronephrosis. 2. Possible 5 mm nonobstructive right upper pole renal calculus. [facility], , 02/23/2025 9:07 AM
[2025-02-23 09:25] LABS: HCT 34.8 % (39.6-50.0); HGB 11.9 g/dL (13.0-17.0); MCH 28.5 pg (27.0-32.0); MCHC 34.2 g/dL (32.0-37.0); MCV 83.3 fL (80.0-97.0); Mean Platelet Volume 9.5 fL (9.5-12.2); Platelet Count 281 10*3/uL (140-440); RBC 4.18 10*6/uL (4.40-5.60); WBC 10.63 10*3/uL (4.50-10.00)
[2025-02-23 09:42] LABS: African American GFR (CKD) 29 (>60 ml/min/1.73 sqM); Anion Gap 12 mmol/L; Blood Urea Nitrogen 93 mg/dL (9-20); Calcium 9.1 mg/dL (8.4-10.2); Carbon Dioxide 18 mmol/L (22-30); Chloride 108 mmol/L (98-107); Glucose 107 mg/dL (74-99); Magnesium 1.8 mg/dL (1.6-2.3); Non-African American GFR(CKD) 25 (>60 ml/min/1.73 sqM); Sodium 138 mmol/L (137-145)
[2025-02-23 09:57] LABS: Potassium 6.6 mmol/L (3.5-5.1)
[2025-02-23 10:04] LABS: Appearance,Urine Clear (Clear); Bilirubin,Urine Negative (Negative); Blood,Urine Trace (Negative); Color,Urine Colorless; Glucose,Urine (UA) 2+ (Negative); Ketones,Urine Negative (Negative); Leukocyte Esterase,Urine Negative (Negative); Nitrite,Urine Negative (Negative); PH, Urine 5.5 (5.0-8.0); Protein,Urine 1+ (Negative); RBC,Urine 23 /hpf (0-5); Specific Gravity,Urine 1.009 (1.001-1.035); Urobilinogen,Urine <2.0 mg/dL (<2.0); WBC,Urine 11 /hpf (0-5)
[2025-02-23] MEDS: SODIUM ZIRCONIUM CYCLOSILICATE 10 GM PACKET PO ONE (10:17)
[2025-02-23] MEDS: IPRATROPIUM-ALBUTEROL 3 ML NEB INHALATION SCH (10:23)
[2025-02-23 10:47] LABS: African American GFR (CKD) 31 (>60 ml/min/1.73 sqM); Anion Gap 12 mmol/L; Blood Urea Nitrogen 91 mg/dL (9-20); Calcium 8.9 mg/dL (8.4-10.2); Carbon Dioxide 17 mmol/L (22-30); Chloride 108 mmol/L (98-107); Glucose 191 mg/dL (74-99); Non-African American GFR(CKD) 26 (>60 ml/min/1.73 sqM); Sodium 137 mmol/L (137-145)
[2025-02-23 10:52] LABS: Potassium 6.6 mmol/L (3.5-5.1)
--- NOTE | 2025-02-23 11:04 | P.CRDCN ---
History of Present Illness History of present illness: HISTORY OF PRESENT ILLNESS: This is a 60-year-old male with a past medical history significant for chronic kidney disease, congestive heart failure, nonischemic cardiomyopathy, and hypert ension. Patient follows in the office with Dr. Salazar. We have been asked to see the patient in consultation for chest pain. Patient examined at the bedside. Patient states he has not been feeling well and has been feeling nauseated and having diarrhea. He also reports that he fell at home in the kitchen and hit his tailbone. He reports having some vague chest pain yesterday that has since resolved with no further episodes of chest pain or pressure. Patient presented to the hospital for further evaluation. Patient was found to have worsening kidney function. He currently denies any chest pain or pressure. He denies any shortness of breath. Vital signs are stable. DIAGNOSTICS: - EKG reveals sinus mechanism with no signs of acute ischemia. Repeat EKG with Q waves inferiorly. - Chest xray negative for acute process. - Laboratory data: WBC 10.63. Hemoglobin 11.9. Platelet count 281. Sodium 137. Potassium 6.6. BUN 91. Creatinine 2.51. Troponin negative x 3. - Current home cardiac medications include Aldactone 25 mg daily, Entresto 24-26 mg twice a day, Lasix 40 mg daily, carvedilol 25 mg twice a day, Farxiga 5 mg daily, Lipitor 40 mg at night, aspirin 81 mg daily. - Most recent echocardiogram obtained in September 2024 revealed ejection fraction 30 to 35%, moderate pulmonary hypertension, mild mitral and tricuspid regurgitation - Patient underwent Lexiscan stress test in October 2024 which was negative for ischemia. - Cardiac catheterization history: Unknown REVIEW OF SYSTEMS: At the time of my exam: CONSTITUTIONAL: Denies fever or chills. HEENT: Denies blurred vision, vision changes, or eye pain. Denies hemoptysis CARDIOVASCULAR: Denies chest pain. Denies orthopnea. Denies PND. Denies palpitations RESPIRATORY: Denies shortness of breath. GASTROINTESTINAL: Denies abdominal pain. Denies nausea or vomiting. HEMATOLOGIC: Denies bleeding disorders. GENITOURINARY: Denies any blood in urine. SKIN: Denies pruitis. Denies rash. PHYSICAL EXAM: VITAL SIGNS: Reviewed. GENERAL: Well-developed in no acute distress. HEENT: Head is normocephalic. Pupils are equal, round. Sclerae anicteric. Mucous membranes of the mouth are moist. Neck supple. No JVD or thyromegaly LUNGS: Respirations even and unlabored. Lungs essentially clear to auscultation bilaterally. HEART: Regular rate and rhythm. S1 and S2 heard. ABDOMEN: Soft. Nondistended. Nontender. EXTREMITIES: Normal range of motion. No clubbing or cyanosis. Peripheral pulses intact. No lower extremity edema NEUROLOGIC: Awake and alert. Oriented x 3. ASSESSMENT: Diarrhea Dehydration Acute on chronic kidney disease Hyperkalemia Atypical chest pain, troponin negative x 3, acute coronary syndrome ruled out History of nonischemic cardiomyopathy Moderate pulmonary hypertension History of hypertension Chronic congestive heart failure with reduced EF, not in acute exacerbation PLAN: No need to repeat echocardiogram as this was performed in September 2024 An acute coronary event has been ruled out Continue aspirin, Lipitor, and carvedilol Hold Aldactone, Entresto, Lasix and Farxiga until kidney function normalizes. Nephrology following. Continue IV fluids Further recommendations pending patient course Nurse practitioner note has been reviewed by physician. Signing provider agrees with the documented findings, assessment, and plan of care documented by HEALTH EDUCATION TEACHER as a scribe. 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 Past Anesthesia/Blood Transfusion Reactions: No Reported Reaction Past Psychological History: No Psychological Hx Reported Smoking Status: Current every day smoker Past Alcohol Use History: Occasional Past Drug Use History: None Reported - Past Family History Sister(s) Family Medical History: Cancer Additional Family Medical History / Comment(s): breast cancer, at 57 from cancer Father Family Medical History: Dementia Additional Family Medical History / Comment(s): alzheimers Medications and Allergies Home Medications Medication Instructions Recorded Confirmed Type Aspirin 81 mg PO DAILY #30 tab 10/07/24 02/23/25 Rx Atorvastatin [Lipitor] 40 mg PO HS #30 tab 10/07/24 02/23/25 Rx Dapagliflozin Propanediol [Farxiga] 5 mg PO DAILY #30 tab 10/07/24 02/23/25 Rx Ipratropium-Albuterol Nebulize 3 ml INHALATION RT-QID each 10/07/24 02/23/25 Rx [Duoneb 0.5 mg-3 mg/3 ml Soln] Furosemide [Lasix] 40 mg PO DAILY 02/23/25 02/23/25 History Sacubitril/Valsartan [Entresto 24 1 tab PO BID 02/23/25 02/23/25 History mg-26 mg Tablet] Spironolactone 25 mg PO DAILY 02/23/25 02/23/25 History Umeclidinium Brm/Vilanterol Tr 1 puff INHALATION RT-DAILY 02/23/25 02/23/25 History [Anoro Ellipta 62.5-25 Mcg INH] carvediloL [Coreg] 25 mg PO BID 02/23/25 02/23/25 History traMADol HCl [Ultram] 50 mg PO TID PRN 02/23/25 02/23/25 History Allergies Allergy/AdvReac Type Severity Reaction Status Date / Time No Known Allergies Allergy Verified 02/23/25 10:08 Physical Exam Vitals: Vital Signs Temp Pulse Pulse Resp BP BP Pulse Ox 02/23/25 10:30 90 16 02/23/25 10:23 90 16 02/23/25 07:00 98.4 F 90 16 153/84 97 02/23/25 02:15 90 02/23/25 02:14 98.8 F 90 17 130/74 98 02/23/25 01:39 98.0 F 93 20 118/79 99 02/22/25 21:30 97.6 F 74 20 111/89 98 Intake and Output 02/22/25 02/23/25 02/23/25 22:59 06:59 14:59 Intake Total 118 Balance 118 Intake: Oral 118 Other: Voiding Method Toilet Toilet # Voids 1 Weight 74.2 kg 74.2 kg Results 02/23/25 08:53 02/23/25 10:17 Cardiac Enzymes 02/22/25 02/22/25 02/23/25 Range/Units 21:47 21:47 05:00 AST 20 (17-59) U/L Troponin I <0.012 0.015 (0.000-0.034) ng/mL 02/23/25 Range/Units 08:53 AST (17-59) U/L Troponin I 0.021 (0.000-0.034) ng/mL Coagulation 02/22/25 Range/Units 21:47 PT 11.3 (10.0-12.5) sec APTT 23.6 (22.0-30.0) sec CBC 02/22/25 02/23/25 Range/Units 21:47 08:53 WBC 9.19 10.63 H (4.50-10.00) 10*3/uL RBC 4.26 L 4.18 L (4.40-5.60) 10*6/uL Hgb 12.4 L 11.9 L (13.0-17.0) g/dL Hct 35.6 L 34.8 L (39.6-50.0) % Plt Count 291 281 (140-440) 10*3/uL Comprehensive Metabolic Panel 02/22/25 02/23/25 Range/Units 21:47 08:53 Sodium 134 L 138 (137-145) mmol/L Potassium 4.8 6.6 H* (3.5-5.1) mmol/L Chloride 102 108 H (98-107) mmol/L Carbon Dioxide 15 L 18 L (22-30) mmol/L BUN 102 H* 93 H (9-20) mg/dL Creatinine 3.26 H 2.60 H (0.66-1.25) mg/dL Glucose 131 H 107 H (74-99) mg/dL Calcium 9.1 9.1 (8.4-10.2) mg/dL AST 20 (17-59) U/L ALT 24 (4-49) U/L Alkaline Phosphatase 80 (38-126) U/L Total Protein 7.0 (6.3-8.2) g/dL Albumin 3.8 (3.5-5.0) g/dL Current Medications Generic Name Dose Route Start Last Admin Trade Name Freq PRN Reason Stop Dose Admin Acetaminophen 650 mg 02/23/25 08:13 Acetaminophen Tab 325 Mg Tab PO Q6HR PRN Mild Pain or Fever > 100.5 Hydrocodone Bitart/Acetaminophen 1 each 02/23/25 08:13 02/23/25 09:02 Hydrocodone/Apap 5-325mg 1 Each Tab PO 1 each Q4HR PRN Administration Moderate Pain (Scale 4 to 6) Albuterol/Ipratropium 3 ml 02/23/25 08:11 Ipratropium-Albuterol 3 Ml Neb INHALATION RT-Q4H PRN Dyspnea Albuterol/Ipratropium 3 ml 02/23/25 12:00 02/23/25 10:23 Ipratropium-Albuterol 3 Ml Neb INHALATION 3 ml RT-QID CARMENCITA Administration Aspirin 81 mg 02/23/25 09:00 02/23/25 09:03 Aspirin 81 Mg PO 81 mg DAILY CARMENCITA Administration Atorvastatin Calcium 40 mg 02/23/25 21:00 Atorvastatin 40 Mg Tab PO HS CARMENCITA Carvedilol 12.5 mg 02/23/25 08:30 02/23/25 09:03 Carvedilol 12.5 Mg Tab PO 12.5 mg BID-W/MEALS CARMENCITA Administration Heparin Sodium (Porcine) 5,000 unit 02/23/25 08:30 02/23/25 09:03 Heparin Sodium,Porcine 5,000 Unit/Ml 1 Ml Vial SQ 5,000 unit Q8HR CARMENCITA Administration Sodium Chloride 1,000 mls @ 75 mls/hr 02/23/25 08:45 02/23/25 09:06 Saline 0.9% IV 75 mls/hr .[id number] CARMENCITA Administration Naloxone HCl 0.2 mg 02/23/25 00:06 Naloxone 0.4 Mg/Ml 1 Ml Vial IV Q2M PRN Opioid Reversal Nicotine 1 patch 02/23/25 21:00 Nicotine 21mg/24hr Patch TRANSDERM HS CARMENCITA Ondansetron HCl 4 mg 02/23/25 00:06 Ondansetron 4 Mg/2 Ml Vial IVP Q8HR PRN Nausea And Vomiting Intake and Output 02/22/25 02/23/25 02/23/25 22:59 06:59 14:59 Intake Total 118 Balance 118 Intake: Oral 118 Other: Voiding Method Toilet Toilet # Voids 1 Weight 74.2 kg 74.2 kg 02/23/25 08:53 02/23/25 08:53
--- NOTE | 2025-02-23 11:06 | P.NPCON ---
History of Present Illness - Reason for Consult acute renal failure, chronic renal failure - History of Present Illness Reason for consultation: Acute kidney injury on chronic kidney disease History of present illness: Patient is a 60-year-old male seen in renal consultation for acute kidney injury on chronic kidney disease. Patient has chronic kidney disease stage IIIb with baseline creatinine near 2. Creatinine this admission was 3.26 and is 2.6 today. Patient came to the hospital due to chest pain. He also sustained a fall and fell on his tailbone. Patient says he been feeling dizzy for a couple of weeks now. Patient states he did lose consciousness and was found down by his ex-. Currently denies any chest pain or shortness of breath. He does take Lasix at home which is currently held. He did receive 1.5 L of normal saline in the ER and is currently maintained on normal saline at 75 cc an hour. He has been voiding. Denies gross hematuria or dysuria. Potassium this morning is elevated at 6.6. He was taking Aldactone as well as Entresto outpatient. Denies use of nonsteroidals. Denies history of diabetes or coronary artery disease. Vital signs are stable. General: No acute distress. HEENT: Head exam is unremarkable. LUNGS: No audible rhonchi or wheezes. HEART: Rate and Rhythm are regular. ABDOMEN: Nontender. EXTREMITITES: No edema. 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 Past Anesthesia/Blood Transfusion Reactions: No Reported Reaction Past Psychological History: No Psychological Hx Reported Smoking Status: Current every day smoker Past Alcohol Use History: Occasional Past Drug Use History: None Reported - Past Family History Sister(s) Family Medical History: Cancer Additional Family Medical History / Comment(s): breast cancer, at 57 from cancer Father Family Medical History: Dementia Additional Family Medical History / Comment(s): alzheimers Medications and Allergies Home Medications Medication Instructions Recorded Confirmed Type Aspirin 81 mg PO DAILY #30 tab 10/07/24 02/23/25 Rx Atorvastatin [Lipitor] 40 mg PO HS #30 tab 10/07/24 02/23/25 Rx Dapagliflozin Propanediol [Farxiga] 5 mg PO DAILY #30 tab 10/07/24 02/23/25 Rx Ipratropium-Albuterol Nebulize 3 ml INHALATION RT-QID each 10/07/24 02/23/25 Rx [Duoneb 0.5 mg-3 mg/3 ml Soln] Furosemide [Lasix] 40 mg PO DAILY 02/23/25 02/23/25 History Sacubitril/Valsartan [Entresto 24 1 tab PO BID 02/23/25 02/23/25 History mg-26 mg Tablet] Spironolactone 25 mg PO DAILY 02/23/25 02/23/25 History Umeclidinium Brm/Vilanterol Tr 1 puff INHALATION RT-DAILY 02/23/25 02/23/25 History [Anoro Ellipta 62.5-25 Mcg INH] carvediloL [Coreg] 25 mg PO BID 02/23/25 02/23/25 History traMADol HCl [Ultram] 50 mg PO TID PRN 02/23/25 02/23/25 History Allergies Allergy/AdvReac Type Severity Reaction Status Date / Time No Known Allergies Allergy Verified 02/23/25 10:08 Physical Exam Vitals: Vital Signs Temp Pulse Pulse Resp BP BP Pulse Ox 02/23/25 10:30 90 16 02/23/25 10:23 90 16 02/23/25 07:00 98.4 F 90 16 153/84 97 02/23/25 02:15 90 02/23/25 02:14 98.8 F 90 17 130/74 98 02/23/25 01:39 98.0 F 93 20 118/79 99 02/22/25 21:30 97.6 F 74 20 111/89 98 Intake and Output 02/22/25 02/23/25 02/23/25 22:59 06:59 14:59 Intake Total 118 Balance 118 Intake: Oral 118 Other: Voiding Method Toilet Toilet # Voids 1 Weight 74.2 kg 74.2 kg Results - Lab Results Most recent lab results Calcium 9.1 mg/dL (8.4-10.2) 02/23/25 08:53 Magnesium 1.8 mg/dL (1.6-2.3) 02/23/25 08:53 02/23/25 08:53 02/23/25 08:53 Assessment and Plan Plan: Assessment: 1. Acute kidney injury secondary to ATN secondary to hypovolemia and further worsen with the use of diuretics and Entresto. Creatinine 3.2 on admission and is 2.6 today. No hydronephrosis noted on kidney ultrasound. 2. Chronic kidney disease stage IIIb with baseline creatinine near 2. 3. Hyperkalemia secondary to acute kidney injury, metabolic acidosis, further worsened with the use of ARB and Aldactone. 4. Metabolic acidosis secondary to acute kidney injury. 5. Chest pain. Being followed by cardiology. Plan: Change IV fluids to bicarb drip. Check bladder scan to rule out urinary retention. 1 g IV calcium gluconate, 10 units IV regular insulin with amp D50, sodium bicarb IV push now. Add Lokelma. Renal diet. Repeat potassium level this afternoon. Continue to hold losartan and Aldactone. Avoid nephrotoxins. Continue to monitor renal function and urine output. Check CK level. Check serologies. Check UPC. Thank you for the consultation. I will continue to follow the patient with you during his hospital stay.
[2025-02-23 11:17] VITALS: BMI 24.8
[2025-02-23] MEDS: CALCIUM GLUCONATE IN NACL 2 GM in SALINE 1 100ML.BAG IVPB ONE (11:21)
[2025-02-23] MEDS: DEXTROSE 50% SYRINGE 50 ML IVP STA (11:21)
[2025-02-23] MEDS: SODIUM BICARB 8.4% 50 ML SYR (1 MEQ/ML) IV STA (11:21)
[2025-02-23] MEDS: INSULIN REGULAR 100 UNIT/ML VIAL (IV) IV ONE (11:22)
[2025-02-23 12:14] LABS: Creatinine,Urine Random 35.3 mg/dL; Protein/Creatinine Ratio,Urine 1.841
[2025-02-23] MEDS: DEXTROSE 5% IN WATER 1,000 ML with SODIUM BICARB (1 MEQ/ML) 150 ML IV SCH (13:11)
[2025-02-23] MEDS ORDERED: DEXTROSE 50% SYRINGE 50 ML IVP PRN ×2 (13:54)
--- NOTE | 2025-02-23 15:46 | P.PN ---
Subjective Progress Note Date: 02/23/25 Hospital course: Patient is a pleasant 60-year-old male with a past medical history of CKD stage IIIb, hypertension, hyperlipidemia, type II [id number] diabetes mellitus, and nicotine dependence. He presented to the emergency department with a chief complaint of weakness and presyncopal episode accompanied by chest pain. Still patient 0.8. Vital signs on arrival showed rate 89, heart rate 74, respiratory rate 20, temp 97.6 F, and SpO2 of 98% on room air. EKG completed showing normal sinus rhythm at 91 bpm with prominent Q waves inferior leads II, III, and aVF. Labs completed and reviewed. CBC showing normocytic anemia with hemoglobin of 12.4. BMP showing sodium 134, chloride 102, bicarb 15, and anion gap of 17 with BUN of 102, creatinine 3.26, GFR of 19. Blood glucose 131. Calcium 9.1. Magnesium 1.9. Liver profile unremarkable. Troponin less than 0.012. Patient admitted under our services with consultation to cardiology for chest pain and nephrology for acute kidney injury on stage IIIb chronic kidney disease. Troponins trended resulting at less than 0.012, 0.015, 0.021. Physical exam: Vital signs reviewed and stable. General: Nontoxic, no distress and appears stated age. Derm: Skin warm and dry, normal coloration for ethnicity. Head: Atraumatic, normocephalic and symmetric. Eyes: EOM's intact, no lid lag, and anicteric sclera Mouth: no lip lesions, mucus membranes moist Cardiovascular: regular rate and rhythm with normal S1S2, no murmur, positive posterior tibial pulses bilaterally, and cap refill < 2 seconds. Lungs: Respirations even, regular, and unlabored on room air. Lungs CTA bilaterally, no rhonchi, no rales, no wheezing, and no accessory muscle usage. Abdominal: soft, nontender to palpation, no guarding, no appreciable organomegaly Ext: ROM intact. No gross muscle atrophy, no edema, no contractures Neuro: Speech clear, face symmetrical and CN II-XII grossly intact with no noted focal neuro deficits Psych: Alert and oriented to person, place, time, and situation. Appropriate and pleasant affect. Assessment and Plan of Care: Chest pain, rule out acute coronary event Hypertension Hyperlipidemia -Cardiology consulted, appreciate recommendations -Telemetry monitoring -Troponins trended resulting at less than 0.012, 0.015, 0.021. -Cardiac diet, NPO at midnight -Aspirin 81 mg daily, atorvastatin 40 mg nightly, and carvedilol 12.5 mg twice daily. Hyperkalemia CORBY on CKD stage IIIb -K+ 6.6 orders placed for hyperkalemia cocktail consisting of Lokelma 10 g, insulin reg 10 U IV, 1 amp D50, Sodium bicarb 1 amp, and Calcium gluconate 2g IVPB. -Nephrology consulted and discussed plan of care with Dr. Everett.. -Hold nephrotoxic medicaions incluiding Farxiga, Entresto, Lasix, and Aldactone. - Continue gentle IV fluid hydration. - Patient to remain on continuous telemetry monitoring. - Continued close monitoring of potassium and renal function with repeat BMP this afternoon and again tomorrow morning. - Order placed for renal ultrasound Data and imaging reviewed: -Morning labs reviewed. Troponins trended resulting at less than 0.012, 0.015, 0.021. CBC showing leukocytosis with WBC count of 10.63, hemoglobin of 11.9. BMP showing hyperkalemia with potassium of 6.6, chloride 108, bicarb 18, anion gap 12, BUN of 93, creatinine of 2.60, GFR of 25. Blood glucose 107. Magnesium 1.8. - Vital signs reviewed. Blood pressure 153/84, heart rate 90, respiratory rate 16, temp 98.4 F, and SpO2 of 97% on room air. CODE STATUS: Full code DVT prophylaxis: Heparin Discussed with: Patient, RN, and gas meter mechanic Anticipated discharge date: Pending clinical course Anticipated discharge place: Home Patient was seen independently by Nurse Pracitioner. This document was prepared using [employer] dictation software. Please allow for errors in stave cutting supervisor, while rare they do occur. Juan Luis Martini NP rendered care for this patient independently, reviewed the findings and plan as documented in the note above and agree with plan. I did not physically speak with or examine the patient on this date. Objective - Vital Signs Vital signs: Vital Signs Temp 98.4 F 02/23/25 07:00 Pulse 90 02/23/25 07:00 Resp 16 02/23/25 07:00 BP 153/84 02/23/25 07:00 Pulse Ox 97 02/23/25 07:00 FiO2 Intake & Output 02/22/25 02/23/25 02/23/25 18:59 06:59 18:59 Weight 74.2 kg Other: Voiding Method Toilet # Voids 1 - Labs CBC & Chem 7: 02/23/25 08:53 02/23/25 14:13 Labs: Abnormal Lab Results - Last 24 Hours (Table) 02/22/25 02/22/25 Range/Units 21:47 21:47 RBC 4.26 L (4.40-5.60) 10*6/uL Hgb 12.4 L (13.0-17.0) g/dL Hct 35.6 L (39.6-50.0) % Monocytes # 1.06 H (0.20-1.00) 10*3/uL Sodium 134 L (137-145) mmol/L Carbon Dioxide 15 L (22-30) mmol/L BUN 102 H* (9-20) mg/dL Creatinine 3.26 H (0.66-1.25) mg/dL Glucose 131 H (74-99) mg/dL
[2025-02-23 16:53] LABS: Glucose,Whole Blood 102 mg/dL (70-110)
[2025-02-23] MEDS: INSULIN LISPRO (HumaLOG) 100 UNIT/ML 10 mL VL SQ SCH (16:54)
[2025-02-23] MEDS: SODIUM ZIRCONIUM CYCLOSILICATE 10 GM PACKET PO SCH (17:01)
[2025-02-23 20:17] LABS: Glucose,Whole Blood 151 mg/dL (70-110)
[2025-02-23] MEDS: NICOTINE 21MG/24HR PATCH TRANSDERM SCH (20:25)
[2025-02-23] MEDS: ATORVASTATIN 40 MG TAB PO SCH (20:25)
[2025-02-23 20:34] LABS: Protein, Total 6.9 g/dL (6.2-8.2)
[2025-02-23 20:55] LABS: Hepatitis A Antibody IgM Nonreactive (Nonreactive); Hepatitis B Core IgM Nonreactive (Nonreactive); Hepatitis B Surface Antigen Nonreactive (Nonreactive); Hepatitis C IgG Antibody Nonreactive (Nonreactive)
[2025-02-23 21:56] LABS: Anti-DNA, DS unit <1.0 IU/mL; DNA Double-Stranded Negative (Negative)
[2025-02-24 05:51] LABS: Glucose,Whole Blood 143 mg/dL (70-110)
[2025-02-24 08:32] LABS: Basophils # (A) 0.09 X 10*3/uL (0.00-0.10); Eosinophils # (A) 0.35 X 10*3/uL (0.04-0.35); HCT 33.3 % (39.6-50.0); HGB 11.2 g/dL (13.0-17.0); Lymphocytes # (A) 2.82 X 10*3/uL (0.90-5.00); MCH 28.1 pg (27.0-32.0); MCHC 33.6 g/dL (32.0-37.0); MCV 83.5 FL (80.0-97.0); Mean Platelet Volume 10.3 FL (9.5-12.2); Monocytes # (A) 0.98 X 10*3/uL (0.20-1.00); Monocytes % (A) 11.1 %; NRBC Per 100 WBC 0 X 10*3/uL (0.00-0.01); Neutrophils # (A) 4.54 X 10*3/uL (1.80-7.70); Neutrophils % (A) 51.7 %; Platelet Count 253 X 10*3/uL (140-440); RBC 3.99 X 10*6/uL (4.40-5.60)
[2025-02-24] MEDS: TAMSULOSIN 0.4 MG CAP.ER.24H PO SCH (08:42)
[2025-02-24 08:53] LABS: ALT 19 U/L (10-49); AST 17 U/L (14-35); Albumin 3.5 g/dL (3.8-4.9); Albumin/Globulin Ratio 1.09 Ratio (1.60-3.17); Alkaline Phosphatase 81 U/L (41-126); Blood Urea Nitrogen 67.4 mg/dL (9.0-27.0); Carbon Dioxide 20.4 mmol/L (21.6-31.8); Chloride 107 mmol/L (96-109); Globulin 3.2 g/dL (1.6-3.3); Glucose 142 mg/dL (70-110); Magnesium 1.8 mg/dL (1.5-2.4); Potassium 5.1 mmol/L (3.5-5.5); Sodium 140 mmol/L (135-145); Total Bilirubin <0.2 mg/dL (0.3-1.2); Total Protein 6.7 g/dL (6.2-8.2)
--- NOTE | 2025-02-24 10:40 | P.PN ---
Subjective HISTORY OF PRESENT ILLNESS: This is a 60-year-old male with a past medical history significant for chronic kidney disease, congestive heart failure, nonischemic cardiomyopathy, and hypertension. Patient follows in the office with Dr. Salazar. We have been asked to see the patient in consultation for chest pain. Patient examined at the bedside. Patient states he has not been feeling well and has been feeling nauseated and having diarrhea. He also reports that he fell at home in the kitchen and hit his tailbone. He reports having some vague chest pain yesterday that has since resolved with no further episodes of chest pain or pressure. Patient presented to the hospital for further evaluation. Patient was found to have worsening kidney function. He currently denies any chest pain or pressure. He denies any shortness of breath. Vital signs are stable. DIAGNOSTICS: - EKG reveals sinus mechanism with no signs of acute ischemia. Repeat EKG with Q waves inferiorly. - Chest xray negative for acute process. - Laboratory data: WBC 10.63. Hemoglobin 11.9. Platelet count 281. Sodium 137. Potassium 6.6. BUN 91. Creatinine 2.51. Troponin negative x 3. - Current home cardiac medications include Aldactone 25 mg daily, Entresto 24-26 mg twice a day, Lasix 40 mg daily, carvedilol 25 mg twice a day, Farxiga 5 mg daily, Lipitor 40 mg at night, aspirin 81 mg daily. - Most recent echocardiogram obtained in September 2024 revealed ejection fraction 30 to 35%, moderate pulmonary hypertension, mild mitral and tricuspid regurgitation - Patient underwent Lexiscan stress test in October 2024 which was negative for ischemia. - Cardiac catheterization history: Unknown 02/24/2025 Patient examined this morning at the bedside. Patient currently denies chest pain or pressure. He denies shortness of breath. Vital signs are stable. Labs from this morning are currently pending. Nursing reports that the patient had some urinary retention and has been started on Flomax. PHYSICAL EXAM: VITAL SIGNS: Reviewed. GENERAL: Well-developed in no acute distress. HEENT: Head is normocephalic. Pupils are equal, round. Sclerae anicteric. Mucous membranes of the mouth are moist. Neck supple. No JVD or thyromegaly LUNGS: Respirations even and unlabored. Lungs essentially clear to auscultation bilaterally. HEART: Regular rate and rhythm. S1 and S2 heard. ABDOMEN: Soft. Nondistended. Nontender. EXTREMITIES: Normal range of motion. No clubbing or cyanosis. Peripheral pulses intact. No lower extremity edema NEUROLOGIC: Awake and alert. Oriented x 3. ASSESSMENT: Diarrhea Dehydration Acute on chronic kidney disease Hyperkalemia Atypical chest pain, troponin negative x 3, acute coronary syndrome ruled out History of nonischemic cardiomyopathy Moderate pulmonary hypertension History of hypertension Chronic congestive heart failure with reduced EF, not in acute exacerbation PLAN: No need to repeat echocardiogram as this was performed in September 2024 An acute coronary event has been ruled out Continue aspirin, Lipitor, and carvedilol Hold Aldactone, Entresto, Lasix and Farxiga until kidney function normalizes. Nephrology following. Continue IV fluids Awaiting labs from this morning Further recommendations pending patient course Nurse practitioner note has been reviewed by physician. Signing provider agrees with the documented findings, assessment, and plan of care documented by [employer] as a scribe. Objective - Vital Signs Vital signs: Vital Signs Temp 97.8 F 02/24/25 07:09 Pulse 76 02/24/25 07:09 Resp 15 02/24/25 07:09 BP 154/91 02/24/25 07:09 Pulse Ox 98 02/24/25 07:09 FiO2 Intake & Output 02/23/25 02/24/25 02/24/25 18:59 06:59 18:59 Intake Total 354 Output Total 340 81 Balance 14 -81 Weight 74.2 kg Intake: Oral 354 Output: Post Void Residual 340 81 Other: Voiding Method Toilet Toilet Toilet # Voids 2 1 # Bowel Movements 1 - Labs CBC & Chem 7: 02/24/25 05:11 02/24/25 05:11 Labs: Abnormal Lab Results - Last 24 Hours (Table) 02/23/25 02/23/25 02/23/25 Range/Units 10:17 14:13 14:13 RBC (4.40-5.60) X 10*6/uL Hgb (13.0-17.0) g/dL Hct (39.6-50.0) % RDW (11.5-14.5) % Potassium 6.6 H* 5.7 H (3.5-5.1) mmol/L Chloride 108 H (98-107) mmol/L Carbon Dioxide 17 L (22-30) mmol/L Anion Gap (4.00-12.00) mmol/L BUN 91 H (9-20) mg/dL Creatinine 2.51 H (0.66-1.25) mg/dL Est GFR (CKD-EPI) (>=60) BUN/Creatinine Ratio (12.00-20.00) Ratio Glucose 191 H (74-99) mg/dL POC Glucose (mg/dL) (70-110) mg/dL Hemoglobin A1c (<=6.0) % Total Bilirubin (0.3-1.2) mg/dL Albumin (3.8-4.9) g/dL Albumin/Globulin Ratio (1.60-3.17) Ratio Tot Complement (CH50) >99 H (42 - 95) U/mL 02/23/25 02/24/25 02/24/25 Range/Units 20:14 05:11 05:11 RBC 3.99 L (4.40-5.60) X 10*6/uL Hgb 11.2 L (13.0-17.0) g/dL Hct 33.3 L (39.6-50.0) % RDW 15.0 H (11.5-14.5) % Potassium (3.5-5.1) mmol/L Chloride (98-107) mmol/L Carbon Dioxide (22-30) mmol/L Anion Gap (4.00-12.00) mmol/L BUN (9-20) mg/dL Creatinine (0.66-1.25) mg/dL Est GFR (CKD-EPI) (>=60) BUN/Creatinine Ratio (12.00-20.00) Ratio Glucose (74-99) mg/dL POC Glucose (mg/dL) 151 H (70-110) mg/dL Hemoglobin A1c 7.8 H (<=6.0) % Total Bilirubin (0.3-1.2) mg/dL Albumin (3.8-4.9) g/dL Albumin/Globulin Ratio (1.60-3.17) Ratio Tot Complement (CH50) (42 - 95) U/mL 02/24/25 02/24/25 Range/Units 05:11 05:44 RBC (4.40-5.60) X 10*6/uL Hgb (13.0-17.0) g/dL Hct (39.6-50.0) % RDW (11.5-14.5) % Potassium (3.5-5.1) mmol/L Chloride (98-107) mmol/L Carbon Dioxide 20.4 L (22-30) mmol/L Anion Gap 12.60 H (4.00-12.00) mmol/L BUN 67.4 H (9-20) mg/dL Creatinine 2.1 H (0.66-1.25) mg/dL Est GFR (CKD-EPI) 35 L (>=60) BUN/Creatinine Ratio 32.10 H (12.00-20.00) Ratio Glucose 142 H (74-99) mg/dL POC Glucose (mg/dL) 143 H (70-110) mg/dL Hemoglobin A1c (<=6.0) % Total Bilirubin <0.2 L (0.3-1.2) mg/dL Albumin 3.5 L (3.8-4.9) g/dL Albumin/Globulin Ratio 1.09 L (1.60-3.17) Ratio Tot Complement (CH50) (42 - 95) U/mL
--- NOTE | 2025-02-24 10:49 | P.PN ---
Subjective Patient is seen in follow-up for acute kidney injury and hyperkalemia. Potassium level better. Renal function also better. Bladder scan showed no evidence of urinary retention today although it was high yesterday. Oral intake is fair. Admits to good urine output. Vital signs are stable. General: No acute distress. HEENT: No acute distress. LUNGS: No audible rhonchi or wheezes. HEART: Rate and Rhythm are regular. ABDOMEN: Nontender. EXTREMITITES: No edema. Objective - Vital Signs Vital signs: Vital Signs Temp 97.8 F 02/24/25 07:09 Pulse 76 02/24/25 07:09 Resp 15 02/24/25 07:09 BP 154/91 02/24/25 07:09 Pulse Ox 98 02/24/25 07:09 FiO2 Intake & Output 02/23/25 02/24/25 02/24/25 18:59 06:59 18:59 Intake Total 354 Output Total 340 81 Balance 14 -81 Weight 74.2 kg Intake: Oral 354 Output: Post Void Residual 340 81 Other: Voiding Method Toilet Toilet Toilet # Voids 2 1 # Bowel Movements 1 - Labs CBC & Chem 7: 02/24/25 05:11 02/24/25 05:11 Labs: Abnormal Lab Results - Last 24 Hours (Table) 02/23/25 02/23/25 02/23/25 Range/Units 10:17 14:13 14:13 RBC (4.40-5.60) X 10*6/uL Hgb (13.0-17.0) g/dL Hct (39.6-50.0) % RDW (11.5-14.5) % Potassium 6.6 H* 5.7 H (3.5-5.1) mmol/L Chloride 108 H (98-107) mmol/L Carbon Dioxide 17 L (22-30) mmol/L Anion Gap (4.00-12.00) mmol/L BUN 91 H (9-20) mg/dL Creatinine 2.51 H (0.66-1.25) mg/dL Est GFR (CKD-EPI) (>=60) BUN/Creatinine Ratio (12.00-20.00) Ratio Glucose 191 H (74-99) mg/dL POC Glucose (mg/dL) (70-110) mg/dL Hemoglobin A1c (<=6.0) % Total Bilirubin (0.3-1.2) mg/dL Albumin (3.8-4.9) g/dL Albumin/Globulin Ratio (1.60-3.17) Ratio Tot Complement (CH50) >99 H (42 - 95) U/mL 02/23/25 02/24/25 02/24/25 Range/Units 20:14 05:11 05:11 RBC 3.99 L (4.40-5.60) X 10*6/uL Hgb 11.2 L (13.0-17.0) g/dL Hct 33.3 L (39.6-50.0) % RDW 15.0 H (11.5-14.5) % Potassium (3.5-5.1) mmol/L Chloride (98-107) mmol/L Carbon Dioxide (22-30) mmol/L Anion Gap (4.00-12.00) mmol/L BUN (9-20) mg/dL Creatinine (0.66-1.25) mg/dL Est GFR (CKD-EPI) (>=60) BUN/Creatinine Ratio (12.00-20.00) Ratio Glucose (74-99) mg/dL POC Glucose (mg/dL) 151 H (70-110) mg/dL Hemoglobin A1c 7.8 H (<=6.0) % Total Bilirubin (0.3-1.2) mg/dL Albumin (3.8-4.9) g/dL Albumin/Globulin Ratio (1.60-3.17) Ratio Tot Complement (CH50) (42 - 95) U/mL 02/24/25 02/24/25 Range/Units 05:11 05:44 RBC (4.40-5.60) X 10*6/uL Hgb (13.0-17.0) g/dL Hct (39.6-50.0) % RDW (11.5-14.5) % Potassium (3.5-5.1) mmol/L Chloride (98-107) mmol/L Carbon Dioxide 20.4 L (22-30) mmol/L Anion Gap 12.60 H (4.00-12.00) mmol/L BUN 67.4 H (9-20) mg/dL Creatinine 2.1 H (0.66-1.25) mg/dL Est GFR (CKD-EPI) 35 L (>=60) BUN/Creatinine Ratio 32.10 H (12.00-20.00) Ratio Glucose 142 H (74-99) mg/dL POC Glucose (mg/dL) 143 H (70-110) mg/dL Hemoglobin A1c (<=6.0) % Total Bilirubin <0.2 L (0.3-1.2) mg/dL Albumin 3.5 L (3.8-4.9) g/dL Albumin/Globulin Ratio 1.09 L (1.60-3.17) Ratio Tot Complement (CH50) (42 - 95) U/mL Assessment and Plan Plan: Assessment: 1. Acute kidney injury secondary to ATN secondary to hypovolemia and further worsen with the use of diuretics and Entresto. Creatinine 3.2 on admission and is 2.1 today. No hydronephrosis noted on kidney ultrasound. Serologies negative so far. Hepatitis panel negative. Patient does have proteinuria with UPC 1.8 g. Possibly from underlying diabetic kidney disease as A1c 7.8% this admission. 2. Chronic kidney disease stage IIIb with baseline creatinine near 2. 3. Hyperkalemia secondary to acute kidney injury, metabolic acidosis, further worsened with the use of ARB and Aldactone. Better. CK level not elevated. 4. Metabolic acidosis secondary to acute kidney injury. Better with bicarb drip. 5. Chest pain. Being followed by cardiology. 6. Cardiomyopathy with ejection fraction of 30 to 35% with moderate pulmonary hypertension. Plan: Hep-Lock IV fluids. Add oral bicarb. Resume Lasix 40 mg once daily. Maintain Lokelma. Renal diet. Continue to hold losartan and Aldactone. Avoid nephrotoxins. Continue to monitor renal function and urine output. Follow-up pending serologies.
[2025-02-24] MEDS: SODIUM BICARBONATE TAB 650 MG TAB PO SCH (11:01)
[2025-02-24] MEDS: FUROSEMIDE 40 MG TAB PO SCH (11:01)
[2025-02-24 11:09] LABS: Glucose,Whole Blood 184 mg/dL (70-110)
[2025-02-24 13:05] VITALS: RESP 16
[2025-02-24 13:54] LABS: C-ANCA <1:20 Titer (<1:20)
--- NOTE | 2025-02-24 16:05 | P.PN ---
Subjective Progress Note Date: 02/24/25 Hospital course: Patient is a pleasant 60-year-old male with a past medical history of CKD stage IIIb, hypertension, hyperlipidemia, type II [id number] diabetes mellitus, and nicotine dependence. He presented to the emergency department with a chief complaint of weakness and presyncopal episode accompanied by chest pain. Still patient 0.8. Vital signs on arrival showed rate 89, heart rate 74, respiratory rate 20, temp 97.6 F, and SpO2 of 98% on room air. EKG completed showing normal sinus rhythm at 91 bpm with prominent Q waves inferior leads II, III, and aVF. Labs completed and reviewed. CBC showing normocytic anemia with hemoglobin of 12.4. BMP showing sodium 134, chloride 102, bicarb 15, and anion gap of 17 with BUN of 102, creatinine 3.26, GFR of 19. Blood glucose 131. Calcium 9.1. Magnesium 1.9. Liver profile unremarkable. Troponin less than 0.012. Patient admitted under our services with consultation to cardiology for chest pain and nephrology for acute kidney injury on stage IIIb chronic kidney disease. Troponins trended resulting at less than 0.012, 0.015, 0.021. Physical exam: Patient was seen and fully evaluated at bedside this morning. He currently denies having any complaints at this time. Reports feeling much better since arrival to our facility. Vital signs reviewed and stable. General: Nontoxic, no distress and appears stated age. Derm: Skin warm and dry, normal coloration for ethnicity. Head: Atraumatic, normocephalic and symmetric. Eyes: EOM's intact, no lid lag, and anicteric sclera Mouth: no lip lesions, mucus membranes moist Cardiovascular: regular rate and rhythm with normal S1S2, no murmur, positive posterior tibial pulses bilaterally, and cap refill < 2 seconds. Lungs: Respirations even, regular, and unlabored on room air. Lungs CTA bilaterally, no rhonchi, no rales, no wheezing, and no accessory muscle usage. Abdominal: soft, nontender to palpation, no guarding, no appreciable organomegaly Ext: ROM intact. No gross muscle atrophy, no edema, no contractures Neuro: Speech clear, face symmetrical and CN II-XII grossly intact with no noted focal neuro deficits Psych: Alert and oriented to person, place, time, and situation. Appropriate and pleasant affect. Assessment and Plan of Care: Chest pain, acute coronary event ruled out Hypertension Hyperlipidemia -Cardiology stating no need to repeat echocardiogram, ruling out acute coronary syndrome in agreement to hold Aldactone, Entresto, and Farxiga. -Telemetry monitoring -Troponins trended resulting at less than 0.012, 0.015, 0.021. -Cardiac diet -Aspirin 81 mg daily, atorvastatin 40 mg nightly, and carvedilol 12.5 mg twice daily. Hyperkalemia CORBY on CKD stage IIIb -K+ 5.1 this morning. Continue Lokelma 10 mg 3 times daily. -Nephrology following and discussed plan of care with Dr. Everett.. Patient to resume 640 twice daily IV fluids discontinued at this time. -Continue to hold nephrotoxic medicaions incluiding Farxiga, Entresto, and Aldactone. -Patient to remain on continuous telemetry monitoring. -Continued close monitoring of potassium and renal function with repeat morning BMP. - Renal ultrasound completed showing no hydronephrosis and a possible 5 mm nonobstructive right upper pole renal calculus. Data and imaging reviewed: - Morning labs reviewed. CBC showing stable normocytic anemia with hemoglobin of 11.2. BMP showing high anion gap metabolic acidosis with chloride of 107, bicarb of 20.4, and anion gap of 12.60. BMP showing continued elevation but improvement of renal function with BUN of 67.4, creatinine of 2.1, and GFR of 35. Blood glucose was 142. Magnesium 1.8. - Vital signs reviewed. Blood pressure 154/91, heart rate 76, respiratory rate 15, temp 97.8 F, and SpO2 of 98% on room air - Renal ultrasound completed showing no hydronephrosis and a possible 5 mm nonobstructive right upper pole renal calculus. CODE STATUS: Full code DVT prophylaxis: Heparin Discussed with: Patient, RN, and pattern repair person Anticipated discharge date: Pending clinical course Anticipated discharge place: Home Patient was seen independently by Nurse Pracitioner. This document was prepared using [employer] dictation software. Please allow for errors in supervisor brooder farm, while rare they do occur. Juan Luis Martini NP rendered care for this patient independently, reviewed the findings and plan as documented in the note above and agree with plan. I did not physically speak with or examine the patient on this date. Objective - Vital Signs Vital signs: Vital Signs Temp 97.8 F 05/07/25 07:09 Pulse 76 02/24/25 07:09 Resp 15 02/24/25 07:09 BP 154/91 02/24/25 07:09 Pulse Ox 98 02/24/25 07:09 FiO2 Intake & Output 02/23/25 02/24/25 02/24/25 18:59 06:59 18:59 Intake Total 354 Output Total 340 Balance 14 Weight 74.2 kg Intake: Oral 354 Output: Post Void Residual 340 Other: Voiding Method Toilet Toilet # Voids 2 1 # Bowel Movements 1 - Labs CBC & Chem 7: 02/24/25 05:11 02/24/25 05:11 Labs: Abnormal Lab Results - Last 24 Hours (Table) 02/23/25 02/23/25 02/23/25 Range/Units 08:53 08:53 09:50 WBC 10.63 H (4.50-10.00) 10*3/uL RBC 4.18 L (4.40-5.60) 10*6/uL Hgb 11.9 L (13.0-17.0) g/dL Hct 34.8 L (39.6-50.0) % RDW 15.0 H (11.5-14.5) % Potassium 6.6 H* (3.5-5.1) mmol/L Chloride 108 H (98-107) mmol/L Carbon Dioxide 18 L (22-30) mmol/L BUN 93 H (9-20) mg/dL Creatinine 2.60 H (0.66-1.25) mg/dL Glucose 107 H (74-99) mg/dL POC Glucose (mg/dL) (70-110) mg/dL Hemoglobin A1c (<=6.0) % Urine Protein 1+ H (Negative) Urine Glucose (UA) 2+ H (Negative) Urine Blood Trace H (Negative) Urine RBC 23 H (0-5) /hpf Urine WBC 11 H (0-5) /hpf Tot Complement (CH50) (42 - 95) U/mL 02/23/25 02/23/25 02/23/25 Range/Units 10:17 14:13 14:13 WBC (4.50-10.00) 10*3/uL RBC (4.40-5.60) 10*6/uL Hgb (13.0-17.0) g/dL Hct (39.6-50.0) % RDW (11.5-14.5) % Potassium 6.6 H* 5.7 H (3.5-5.1) mmol/L Chloride 108 H (98-107) mmol/L Carbon Dioxide 17 L (22-30) mmol/L BUN 91 H (9-20) mg/dL Creatinine 2.51 H (0.66-1.25) mg/dL Glucose 191 H (74-99) mg/dL POC Glucose (mg/dL) (70-110) mg/dL Hemoglobin A1c (<=6.0) % Urine Protein (Negative) Urine Glucose (UA) (Negative) Urine Blood (Negative) Urine RBC (0-5) /hpf Urine WBC (0-5) /hpf Tot Complement (CH50) >99 H (42 - 95) U/mL 02/23/25 02/24/25 02/24/25 Range/Units 20:14 05:11 05:44 WBC (4.50-10.00) 10*3/uL RBC (4.40-5.60) 10*6/uL Hgb (13.0-17.0) g/dL Hct (39.6-50.0) % RDW (11.5-14.5) % Potassium (3.5-5.1) mmol/L Chloride (98-107) mmol/L Carbon Dioxide (22-30) mmol/L BUN (9-20) mg/dL Creatinine (0.66-1.25) mg/dL Glucose (74-99) mg/dL POC Glucose (mg/dL) 151 H 143 H (70-110) mg/dL Hemoglobin A1c 7.8 H (<=6.0) % Urine Protein (Negative) Urine Glucose (UA) (Negative) Urine Blood (Negative) Urine RBC (0-5) /hpf Urine WBC (0-5) /hpf Tot Complement (CH50) (42 - 95) U/mL
[2025-02-24 16:51] LABS: Glucose,Whole Blood 179 mg/dL (70-110)
[2025-02-24 20:03] LABS: Glucose,Whole Blood 125 mg/dL (70-110)
[2025-02-25 06:33] LABS: Glucose,Whole Blood 163 mg/dL (70-110)
[2025-02-25 08:02] VITALS: BP 135/79; TEMP 98
[2025-02-25 08:33] LABS: HCT 35.4 % (39.6-50.0); HGB 11.5 g/dL (13.0-17.0); MCH 27.6 pg (27.0-32.0); MCHC 32.5 g/dL (32.0-37.0); MCV 84.9 FL (80.0-97.0); Mean Platelet Volume 10.2 FL (9.5-12.2); NRBC Per 100 WBC 0 X 10*3/uL (0.00-0.01); Platelet Count 273 X 10*3/uL (140-440); RBC 4.17 X 10*6/uL (4.40-5.60); RDW 15.3 % (11.5-14.5)
[2025-02-25 08:58] LABS: BUN/Creat Ratio 24.13 Ratio (12.00-20.00); Blood Urea Nitrogen 55.5 mg/dL (9.0-27.0); Carbon Dioxide 23.2 mmol/L (21.6-31.8); Chloride 102 mmol/L (96-109); Glucose 154 mg/dL (70-110); Magnesium 1.6 mg/dL (1.5-2.4); Potassium 5.2 mmol/L (3.5-5.5); Sodium 136 mmol/L (135-145)
[2025-02-25] MEDS: SACUBITRIL/VALSARTAN 24 MG-26 MG TABLET PO SCH (09:05)
[2025-02-25] MEDS: MAGNESIUM SULFATE-D5W PMX 1 GM in DEXTROSE/WATER 1 100ML.BAG IVPB SCH (10:29)
--- NOTE | 2025-02-25 10:42 | P.PN ---
Subjective Patient is seen in follow-up for acute kidney injury and hyperkalemia. Potassium stable. Renal function also stable. Oral intake is fair. Admits to good urine output. Vital signs are stable. General: No acute distress. HEENT: No acute distress. LUNGS: No audible rhonchi or wheezes. HEART: Rate and Rhythm are regular. ABDOMEN: Nontender. EXTREMITITES: No edema. Objective - Vital Signs Vital signs: Vital Signs Temp 98.0 F 02/25/25 08:00 Pulse 80 02/25/25 08:29 Resp 16 02/25/25 08:00 BP 135/79 02/25/25 08:00 Pulse Ox 99 02/25/25 08:00 FiO2 Intake & Output 02/24/25 02/25/25 02/25/25 18:59 06:59 18:59 Output Total 81 Balance -81 Weight 74.2 kg Output: Post Void Residual 81 Other: Voiding Method Toilet Toilet Toilet # Voids 4 2 # Bowel Movements 1 - Labs CBC & Chem 7: 02/25/25 05:49 02/25/25 05:49 Labs: Abnormal Lab Results - Last 24 Hours (Table) 02/24/25 02/24/25 02/24/25 Range/Units 11:07 16:50 20:02 RBC (4.40-5.60) X 10*6/uL Hgb (13.0-17.0) g/dL Hct (39.6-50.0) % RDW (11.5-14.5) % BUN (9.0-27.0) mg/dL Creatinine (0.6-1.5) mg/dL Est GFR (CKD-EPI) (>=60) BUN/Creatinine Ratio (12.00-20.00) Ratio Glucose (70-110) mg/dL POC Glucose (mg/dL) 184 H 179 H 125 H (70-110) mg/dL 02/25/25 02/25/25 02/25/25 Range/Units 05:49 05:49 06:32 RBC 4.17 L (4.40-5.60) X 10*6/uL Hgb 11.5 L (13.0-17.0) g/dL Hct 35.4 L (39.6-50.0) % RDW 15.3 H (11.5-14.5) % BUN 55.5 H (9.0-27.0) mg/dL Creatinine 2.3 H (0.6-1.5) mg/dL Est GFR (CKD-EPI) 31 L (>=60) BUN/Creatinine Ratio 24.13 H (12.00-20.00) Ratio Glucose 154 H (70-110) mg/dL POC Glucose (mg/dL) 163 H (70-110) mg/dL Assessment and Plan Plan: Assessment: 1. Acute kidney injury secondary to ATN secondary to hypovolemia and further worsen with the use of diuretics and Entresto. Creatinine 3.2 on admission and is 2.3 today. No hydronephrosis noted on kidney ultrasound. Serologies negative so far. Hepatitis panel negative. Patient does have proteinuria with UPC 1.8 g. Possibly from underlying diabetic kidney disease as A1c 7.8% this admission. 2. Chronic kidney disease stage IIIb with baseline creatinine near 2. 3. Hyperkalemia secondary to acute kidney injury, metabolic acidosis, further worsened with the use of ARB and Aldactone. Better. CK level not elevated. 4. Metabolic acidosis secondary to acute kidney injury. On oral bicarb. 5. Chest pain. Being followed by cardiology. 6. Cardiomyopathy with ejection fraction of 30 to 35% with moderate pulmonary hypertension. Plan: Maintain Lasix. Maintain Lokelma. Renal diet. Back on Entresto per cardiology. Avoid nephrotoxins. Continue to monitor renal function and urine output. Follow-up pending serologies. Follow-up outpatient 1 week postdischarge. Repeat BMP and magnesium level 2 to 3 days postdischarge
--- NOTE | 2025-02-25 11:06 | P.PN ---
Subjective HISTORY OF PRESENT ILLNESS: This is a 60-year-old male with a past medical history significant for chronic kidney disease, congestive heart failure, nonischemic cardiomyopathy, and hypertension. Patient follows in the office with Dr. Salazar. We have been asked to see the patient in consultation for chest pain. Patient examined at the bedside. Patient states he has not been feeling well and has been feeling nauseated and having diarrhea. He also reports that he fell at home in the kitchen and hit his tailbone. He reports having some vague chest pain yesterday that has since resolved with no further episodes of chest pain or pressure. Patient presented to the hospital for further evaluation. Patient was found to have worsening kidney function. He currently denies any chest pain or pressure. He denies any shortness of breath. Vital signs are stable. DIAGNOSTICS: - EKG reveals sinus mechanism with no signs of acute ischemia. Repeat EKG with Q waves inferiorly. - Chest xray negative for acute process. - Laboratory data: WBC 10.63. Hemoglobin 11.9. Platelet count 281. Sodium 137. Potassium 6.6. BUN 91. Creatinine 2.51. Troponin negative x 3. - Current home cardiac medications include Aldactone 25 mg daily, Entresto 24-26 mg twice a day, Lasix 40 mg daily, carvedilol 25 mg twice a day, Farxiga 5 mg daily, Lipitor 40 mg at night, aspirin 81 mg daily. - Most recent echocardiogram obtained in September 2024 revealed ejection fraction 30 to 35%, moderate pulmonary hypertension, mild mitral and tricuspid regurgitation - Patient underwent Lexiscan stress test in October 2024 which was negative for ischemia. - Cardiac catheterization history: Unknown 02/24/2025 Patient examined this morning at the bedside. Patient currently denies chest pain or pressure. He denies shortness of breath. Vital signs are stable. Labs from this morning are currently pending. Nursing reports that the patient had some urinary retention and has been started on Flomax. 02/25/2025 Patient examined this morning bedside. Patient currently denies chest pain or pressure. He denies shortness of breath. Kidney function today has improved. He has been resumed on Lasix. PHYSICAL EXAM: VITAL SIGNS: Reviewed. GENERAL: Well-developed in no acute distress. HEENT: Head is normocephalic. Pupils are equal, round. Sclerae anicteric. Mucous membranes of the mouth are moist. Neck supple. No JVD or thyromegaly LUNGS: Respirations even and unlabored. Lungs essentially clear to auscultation bilaterally. HEART: Regular rate and rhythm. S1 and S2 heard. ABDOMEN: Soft. Nondistended. Nontender. EXTREMITIES: Normal range of motion. No clubbing or cyanosis. Peripheral pulses intact. No lower extremity edema NEUROLOGIC: Awake and alert. Oriented x 3. ASSESSMENT: Diarrhea Dehydration Acute on chronic kidney disease Hyperkalemia Atypical chest pain, troponin negative x 3, acute coronary syndrome ruled out History of nonischemic cardiomyopathy Moderate pulmonary hypertension History of hypertension Chronic congestive heart failure with reduced EF, not in acute exacerbation PLAN: No need to repeat echocardiogram as this was performed in September 2024 An acute coronary event has been ruled out Continue aspirin, Lipitor, and carvedilol Patient has been resumed on Lasix by nephrology Resume Entresto today Continue to hold Aldactone and Farxiga. These may be resumed on an outpatient basis. Patient is stable for discharge home today We will sign off. Please reconsult if needed. Nurse practitioner note has been reviewed by physician. Signing provider agrees with the documented findings, assessment, and plan of care documented by [employer] as a scribe. Objective - Vital Signs Vital signs: Vital Signs Temp 98.0 F 02/25/25 08:00 Pulse 80 02/25/25 08:29 Resp 16 02/25/25 08:00 BP 135/79 02/25/25 08:00 Pulse Ox 99 02/25/25 08:00 FiO2 Intake & Output 02/24/25 02/25/25 02/25/25 18:59 06:59 18:59 Output Total 81 Balance -81 Weight 74.2 kg Output: Post Void Residual 81 Other: Voiding Method Toilet Toilet Toilet # Voids 4 2 # Bowel Movements 1 - Labs CBC & Chem 7: 02/25/25 05:49 02/25/25 05:49 Labs: Abnormal Lab Results - Last 24 Hours (Table) 02/24/25 02/24/25 02/24/25 Range/Units 11:07 16:50 20:02 RBC (4.40-5.60) X 10*6/uL Hgb (13.0-17.0) g/dL Hct (39.6-50.0) % RDW (11.5-14.5) % BUN (9.0-27.0) mg/dL Creatinine (0.6-1.5) mg/dL Est GFR (CKD-EPI) (>=60) BUN/Creatinine Ratio (12.00-20.00) Ratio Glucose (70-110) mg/dL POC Glucose (mg/dL) 184 H 179 H 125 H (70-110) mg/dL 02/25/25 02/25/25 02/25/25 Range/Units 05:49 05:49 06:32 RBC 4.17 L (4.40-5.60) X 10*6/uL Hgb 11.5 L (13.0-17.0) g/dL Hct 35.4 L (39.6-50.0) % RDW 15.3 H (11.5-14.5) % BUN 55.5 H (9.0-27.0) mg/dL Creatinine 2.3 H (0.6-1.5) mg/dL Est GFR (CKD-EPI) 31 L (>=60) BUN/Creatinine Ratio 24.13 H (12.00-20.00) Ratio Glucose 154 H (70-110) mg/dL POC Glucose (mg/dL) 163 H (70-110) mg/dL
[2025-02-25] MEDS: SODIUM ZIRCONIUM CYCLOSILICATE 10 GM PACKET PO SCH (11:17)
[2025-02-25 12:05] VITALS: PULSE 82
[2025-02-25 12:35] LABS: Glucose,Whole Blood 223 mg/dL (70-110)
--- NOTE | 2025-02-25 17:52 | P.DS ---
Providers Date of admission: 02/23/25 00:08 Expected date of discharge: 02/25/25 Attending physician: Melissa Mark MD Consults: 02/23/25 04:40 Consult Physician Routine Consulting Provider: Varun Salazar Consult Reason/Comments: chest pain Do you want consulting provider notified?: Yes 02/23/25 04:42 Consult Physician Routine Consulting Provider: Peggy Chavez Consult Reason/Comments: renal failure Do you want consulting provider notified?: Yes Primary care physician: Andrea Thomason Hospital Course: Discharge Diagnosis: Chest pain, acute coronary event ruled out. Troponins trended resulting at less than 0.012, 0.015, 0.021. Cardiology evaluated stating no need to repeat echocardiogram, ruling out acute coronary syndrome. Hypertension. Continue daily medication regimen with Coreg 25 mg twice daily. Hyperlipidemia. Continue daily medication regimen with atorvastatin 40 mg nightly. Hyperkalemia. Entresto, Aldactone, and Farxiga were discontinued. Potassium 5.2 on discharge. Patient discharged home with Lokelma 10 mg daily for an additional 5 days and to have repeat BMP in 3 days with results to be sent to PCP and nephrology for follow-up and management. Discussed with Dr. Everett, if repeat labs show further hyperkalemia we will send a different additional prescription for Lokelma at that time. CORBY on CKD stage IIIb. Patient started on sodium bicarb 650 mg twice daily and discharged home with script for repeat BMP in 3 days with results to be sent to PCP and nephrology for follow-up and management. Renal ultrasound completed showing no hydronephrosis and a possible 5 mm nonobstructive right upper pole renal calculus. Entresto, Aldactone, and Farxiga were discontinued. Hospital Course: Patient is a pleasant 60-year-old male with a past medical history of CKD stage IIIb, hypertension, hyperlipidemia, type II [id number] diabetes me llitus, and nicotine dependence. He presented to the emergency department with a chief complaint of weakness and presyncopal episode accompanied by chest pain. Still patient 0.8. Vital signs on arrival showed rate 89, heart rate 74, respiratory rate 20, temp 97.6 F, and SpO2 of 98% on room air. EKG completed showing normal sinus rhythm at 91 bpm with prominent Q waves inferior leads II, III, and aVF. Labs completed and reviewed. CBC showing normocytic anemia with hemoglobin of 12.4. BMP showing sodium 134, chloride 102, bicarb 15, and anion gap of 17 with BUN of 102, creatinine 3.26, GFR of 19. Blood glucose 131. Calcium 9.1. Magnesium 1.9. Liver profile unremarkable. Troponin less than 0.012. Patient admitted under our services with consultation to cardiology for chest pain and nephrology for acute kidney injury on stage IIIb chronic kidney disease. Patient had full resolution of chest pain/discomfort. Troponins trended resulting at less than 0.012, 0.015, 0.021.Cardiology evaluated stating no need to repeat echocardiogram, ruling out acute coronary syndrome stating patient to follow-up outpatient in office with ostomy care nurse in 2 weeks. Patient with worsening hyperkalemia. Potassium elevated as high as 6.6. Patient was treated with hyperkalemia cocktail as well is multiple doses of Lokelma. He was evaluated by nephrology. Entresto, Aldactone, and Farxiga were discontinued. Patient started on sodium bicarb 650 mg twice daily and discharged home with Lokelma 10 mg daily for an additional 5 days and script for repeat BMP in 3 days with results to be sent to PCP and nephrology for follow-up and management. Renal ultrasound completed showing no hydronephrosis and a possible 5 mm nonobstructive right upper pole renal calculus. Patient medically optimized for discharge at this time, he has been cleared by cardiology and nephrology. Patient to follow-up outpatient with PCP in 1 to 2 days, cardiology in 1 to 2 weeks, and nephrology in 1 week. Physical exam: Vital signs reviewed and stable. General: Nontoxic, no distress and appears stated age. Derm: Skin warm and dry, normal coloration for ethnicity. Head: Atraumatic, normocephalic and symmetric. Eyes: EOM's intact, no lid lag, and anicteric sclera Mouth: no lip lesions, mucus membranes moist Cardiovascular: regular rate and rhythm with normal S1S2, no murmur, positive posterior tibial pulses bilaterally, and cap refill < 2 seconds. Lungs: Respirations even, regular, and unlabored on room air. Lungs CTA bilaterally, no rhonchi, no rales, no wheezing, and no accessory muscle usage. Abdominal: soft, nontender to palpation, no guarding, no appreciable organomegaly Ext: ROM intact. No gross muscle atrophy, no edema, no contractures Neuro: Speech clear, face symmetrical and CN II-XII grossly intact with no noted focal neuro deficits Psych: Alert and oriented to person, place, time, and situation. Appropriate and pleasant affect. A total of 37 minutes of time were spent preparing this complex discharge summary. Pt was discharged on 02/25/25 at 11:35 AM Patient was seen independently by Nurse Practitioner. This document was prepared using [employer] dictation software. Please allow for errors in cleaner window while rare they do occur. Juan Luis Martini NP rendered care for this patient independently, reviewed the findings and plan as documented in the note above. I did not physically speak with or examine the patient on this date. Patient Condition at Discharge: Stable Plan - Discharge Summary Discharge Rx Participant: No New Discharge Prescriptions: New Magnesium Oxide [Mag-Ox] 400 mg PO DAILY 30 Days #30 tab Tamsulosin [Flomax] 0.4 mg PO DAILY 30 Days #30 cap metFORMIN HCL [Glucophage] 500 mg PO BID 30 Days #60 tab Sodium Zirconium Cyclosilicate [Lokelma] 10 gm PO DAILY 5 Days #5 packet Sodium Bicarbonate Tab 650 mg PO BID 30 Days #60 tab Continue Atorvastatin [Lipitor] 40 mg PO HS #30 tab Umeclidinium Brm/Vilanterol Tr [Anoro Ellipta 62.5-25 Mcg INH] 1 puff INHALATION RT-DAILY traMADol HCl [Ultram] 50 mg PO TID PRN PRN Reason: Pain Aspirin 81 mg PO DAILY #30 tab Ipratropium-Albuterol Nebulize [Duoneb 0.5 mg-3 mg/3 ml Soln] 3 ml INHALATION RT-QID each Furosemide [Lasix] 40 mg PO DAILY carvediloL [Coreg] 25 mg PO BID Discontinued Sacubitril/Valsartan [Entresto 24 mg-26 mg Tablet] 1 tab PO BID Spironolactone 25 mg PO DAILY Dapagliflozin Propanediol [Farxiga] 5 mg PO DAILY #30 tab Discharge Medication List Aspirin 81 mg PO DAILY #30 tab 10/07/24 [Rx] Atorvastatin [Lipitor] 40 mg PO HS #30 tab 10/07/24 [Rx] Ipratropium-Albuterol Nebulize [Duoneb 0.5 mg-3 mg/3 ml Soln] 3 ml INHALATION RT-QID each 10/07/24 [Rx] Furosemide [Lasix] 40 mg PO DAILY 02/23/25 [History] Umeclidinium Brm/Vilanterol Tr [Anoro Ellipta 62.5-25 Mcg INH] 1 puff INHALATION RT-DAILY 02/23/25 [History] carvediloL [Coreg] 25 mg PO BID 02/23/25 [History] traMADol HCl [Ultram] 50 mg PO TID PRN 02/23/25 [History] Magnesium Oxide [Mag-Ox] 400 mg PO DAILY 30 Days #30 tab 02/25/25 [Rx] Sodium Bicarbonate Tab 650 mg PO BID 30 Days #60 tab 02/25/25 [Rx] Sodium Zirconium Cyclosilicate [Lokelma] 10 gm PO DAILY 5 Days #5 packet 02/25/25 [Rx] Tamsulosin [Flomax] 0.4 mg PO DAILY 30 Days #30 cap 02/25/25 [Rx] metFORMIN HCL [Glucophage] 500 mg PO BID 30 Days #60 tab 02/25/25 [Rx] Follow up Appointment(s)/Referral(s): Ludmila Zimmer NPC [REFERRING] - 1-2 days Avinash Everett DO [STAFF PHYSICIAN] - 1 Week Linda Burnett MD [STAFF PHYSICIAN] - 2 Weeks Ambulatory/Diagnostic Orders: Basic Metabolic Panel [LAB.AMB] Time Frame: 3 Days, Location: None Selected Patient Instructions/Handouts: Chronic Kidney Disease Diet (DC) Discharge Disposition: HOME SELF-CARE
[2025-02-26] MEDS ORDERED: MAGNESIUM OXIDE 400 MG TAB PO SCH (09:00)
[2025-02-26 12:05] LABS: Albumin 3.34 g/dL (3.80-4.90); Gamma Globulin 1.48 g/dL (0.70-1.50)
== END 2025-02-25 13:34 | disposition home or self-care (01) | DRG 469 ==
LOC: EC 21:28 → 6NMEDSUR 02-23 00:07 → OBSVTOIN 02-23 00:08 → 6NMEDSUR 02-23 01:16
PROVIDERS: ADMIT Internal Medicine; ATTEND Internal Medicine
DX: N17.0 Acute kidney failure with tubular necrosis (principal); E87.20 Acidosis, unspecified; I27.20 Pulmonary hypertension, unspecified; I13.0 Hypertensive heart and chronic kidney disease with heart failure and stage 1 through stage 4 chronic kidney disease, or unspecified chronic kidney disease; I50.22 Chronic systolic (congestive) heart failure; R07.89 Other chest pain; E11.22 Type 2 diabetes mellitus with diabetic chronic kidney disease; N18.32 Chronic kidney disease, stage 3b; D63.1 Anemia in chronic kidney disease; E11.40 Type 2 diabetes mellitus with diabetic neuropathy, unspecified; J44.9 Chronic obstructive pulmonary disease, unspecified; I42.8 Other cardiomyopathies; E87.5 Hyperkalemia; R55 Syncope and collapse; R80.9 Proteinuria, unspecified; E86.0 Dehydration; E86.1 Hypovolemia; E78.5 Hyperlipidemia, unspecified; F17.200 Nicotine dependence, unspecified, uncomplicated; Z79.82 Long term (current) use of aspirin; Z79.84 Long term (current) use of oral hypoglycemic drugs; Z79.899 Other long term (current) drug therapy; Z86.14 Personal history of Methicillin resistant Staphylococcus aureus infection; W19.XXXA Unspecified fall, initial encounter; Y92.009 Unspecified place in unspecified non-institutional (private) residence as the place of occurrence of the external cause
CPT/HCPCS: 36415; 71046; 76770; 80048; 80053; 80074; 81001; 82550; 82570; 83036; 83690; 83735; 84132; 84156; 84165; 84484; 85025; 85027; 85610; 85730; 86038; 86160; 86162; 86225; 86255; 86334; 93005; 94640; 96360; 99285

== ENCOUNTER → 2025-03-01 | Outpatient (CLI) | payer OTHER ==
[2025-03-01 15:54] LABS: BUN/Creat Ratio 22.26 Ratio (12.00-20.00); Blood Urea Nitrogen 51.2 mg/dL (9.0-27.0); Calcium 9.1 mg/dL (8.7-10.3); Carbon Dioxide 20.1 mmol/L (21.6-31.8); Chloride 97 mmol/L (96-109); Glucose 177 mg/dL (70-110); Potassium 4.6 mmol/L (3.5-5.5); Sodium 134 mmol/L (135-145)
== END | disposition home or self-care (01) ==
LOC: LABWHC1 12:16
PROVIDERS: ATTEND Nurse Practitioner
DX: E87.5 Hyperkalemia (principal); N17.0 Acute kidney failure with tubular necrosis; E86.0 Dehydration
CPT/HCPCS: 36415; 80048

== ENCOUNTER → 2025-04-08 | Outpatient (CLI) | payer OTHER ==
[2025-04-08 21:12] LABS: BUN/Creat Ratio 26.24 Ratio (12.00-20.00); Blood Urea Nitrogen 65.6 mg/dL (9.0-27.0); Carbon Dioxide 26.1 mmol/L (21.6-31.8); Chloride 97 mmol/L (96-109); Glucose 256 mg/dL (70-110); Potassium 4.4 mmol/L (3.5-5.5); Sodium 137 mmol/L (135-145)
== END | disposition home or self-care (01) ==
LOC: LABWHC1 11:38
PROVIDERS: ATTEND Internal Medicine Nephrology
DX: N18.32 Chronic kidney disease, stage 3b (principal)
CPT/HCPCS: 36415; 80048